=== PATIENT | male | born 1990 | race Caucasian/White ===

== ENCOUNTER 2024-10-27 10:02 | Emergency (ER) | payer OTHER, SELFPAY ==
[2024-10-27 10:03] VITALS: BP 141/68; PULSE 79; RESP 18; TEMP 36.6; O2SAT 98; BMI 42.4
--- NOTE | 2024-10-27 10:26 | EKG12_ITS ---
Test Reason : CP Blood Pressure : */* mmHG Vent. Rate : 75 BPM Atrial Rate : 75 BPM P-R Int : 190 ms QRS Dur : 96 ms QT Int : 378 ms P-R-T Axes : 44 11 25 degrees QTcB Int : 422 ms Normal sinus rhythm Normal ECG Confirmed by JANEL NUÑEZ, JOSE ANTONIO ([id number]), news video editor EVGENY DOWNING ([id number]) on 10/30/2024 2:21:42 PM Referred By: ROQUE/JIM Confirmed By: JOSE ANTONIO ISLAS MD
[2024-10-27 10:35] VITALS: O2SAT 98
--- NOTE | 2024-10-27 10:41 | CT_ITS ---
STUDY: CTA CHEST REASON FOR EXAM: Male, 33 years old. cp and known DVT RADIATION DOSAGE (If Supplied By Facility): CTDIvol = ( 11.60 ) mGy, DLP = ( 548.17 ) mGycm TECHNIQUE: The examination was performed with the intravenous administration of IV 100mL Isovue-370. Post-processing of the angiographic images was performed, with multiplanar reformation and 3D reconstruction. Individualized dose optimization techniques were used for this CT. COMPARISON: None. FINDINGS: Normal enhancement of the main pulmonary artery and right and left pulmonary arteries. Normal enhancement of the bilateral peripheral pulmonary arteries. There is no demonstrated pulmonary embolism. Normal thoracic aorta and visualized great vessels. There is no demonstrated aortic dissection. Normal heart and pericardium. Normal mediastinum. Normal hilar regions. Normal visualized trachea and bronchi. The lungs are well expanded. Normal pulmonary parenchyma. Normal pleura. Normal chest wall structures. Normal osseous structures. Normal visualized upper abdomen. CT/CTA Chest W/WO Contrast IMPRESSION: Normal CTA chest examination, without a demonstrated pulmonary embolism or arterial dissection. Electronically Signed: Erich Gann MD at 12:08 [facility] ,
--- NOTE | 2024-10-27 10:41 | EDS_ITS ---
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 He was seen and worked up for this by physicians at another facility. Said he was never put on a blood thinner besides aspirin. He had leg swelling in his left leg for more than a year. He also has some in his right. States now for last several days he had intermittent chest pain worse with deep breathing. Denies any hemoptysis. Mild shortness of breath with exertion. No cardiac history or prior cardiac or chest surgery. He denies any fever or significant cough. Prior Similar Symptoms: No Recent Illness/Hospitalization: No CVD Risk Factors: Negative for Hypertension or Diabetes PE Risk Factors: Positive for Prior DVT or PE; Negative for Recent Travel/Surgery, Recent Immobilization, Cancer or OCP + Smoking + >/=35 TAD Risk Factors: Negative for Marfan's Syndrome PFSH PFSH Medical History no medical history Home Medications ?Medication ?Instructions ?Recorded ?Last Taken ?Type NK 10/27/24 Unknown History Allergy/AdvReac Type Severity Reaction Status Date / Time No Known Allergies Allergy Verified 10/27/24 10:04 Family History no significant family his Surgical History no surgical history Social History Smoking Status: Never smoker ROS ROS ED ROS Narrative Chest pain. Dyspnea. Constitutional Constitutional ED: Denies chills or fever(s) Eyes Eyes: Reports none ENT ENT ED: Denies ear pain Cardiovascular Cardiovascular: Reports as per HPI and chest pain; Denies palpitations or racing heartbeat Respiratory/Chest Respiratory/Chest: Reports dyspnea and dyspnea on exertion Gastrointestinal Gastrointestinal: Denies abdominal pain Genitourinary Genitourinary ED: Denies dysuria or hematuria Musculoskeletal Musculoskeletal: Denies arthralgias Integumentary Denies abscess Neurologic Neurologic: Denies headache(s) Psychiatric Psychiatric: Denies anxiety or depression Endocrine Endocrinology: Denies cold intolerance Hematologic/Lymphatic Hematologic/Lymphatic: Denies easy bleeding or easy bruising Allergic/Immunologic Allergic/Immunologic ED: Denies mouth swelling, tongue swelling or urticaria EXAM Physical Exam Narrative Exam Narrative: 33-year-old male vital signs stable afebrile. Pulse ox 98% on room air no signs of hypoxia. H EENT exam unremarked. Neck nontender. Lungs clear to auscultation bilaterally. Heart regular rate and rhythm no murmur rate about 95. Chest wall and ribs nontender. No reproducible pain. Abdomen soft n ontender. Moving all 4 extremities. He has 1+ pitting edema both lower extremities left greater than right Normal dorsi plantarflexion. Normal finished hardware erector strength and radial pulses. Back nontender. Neurologically is awake and alert. Answer questions following commands. No focal motor deficits. Const Vital Signs: 10/27/24 10:03 10/27/24 10:35 10/27/24 12:03 Temperature 98 F Temperature Source Temporal Pulse Rate 79 70 Respiratory Rate 18 16 Blood Pressure 141/68 H 131/80 H Blood Pressure Mean 92 97 Pulse Ox 98 98 99 Oxygen Delivery Method Room Air Room Air Positive well nourished and well developed; Negative for cachectic, contractures or unkempt Constitutional Narrative: BMI of 42. General Appearance ED: well developed and NAD; Negative for unkempt, cachectic, contractures or pallor Nutritional Appearance: Negative for cachectic HEENT Reports moist mucous membranes normocephalic and atraumatic; Negative for trauma or tenderness Eyes PERRL and EOMs intact bilaterally General Eye ED: Negative for pale conjunctiva or scleral icterus Neck no lymphadenopathy, supple and no JVD General: Negative for tenderness Chest Wall inspection of chest normal and palpation of chest normal Resp normal respiratory effort and clear to auscultation bilaterally Effort and Inspection: Negative for respiratory distress Auscultation: Negative for rales, rhonchi, wheezes or diminished lung sounds Cardio regular rate, regular rhythm, S1 normal heart sound, S2 normal heart sound and no murmurs Rate: Negative for bradycardia or tachycardic Rhythm: Negative for abnormal rhythm Peripheral Pulses: Negative for pulses 2+ throughout GI normal to inspection, nondistended, normoactive bowel sounds, soft to palpation, non-tender, non-distended and no masses Back/Spine no CVA tenderness and no thoracic nor lumbar tenderness General Back: Negative for CVA tenderness Cervical Spine: Negative for cervical spine tenderness Extremity Negative for normal to inspection Extremity Narrative: Bilateral lower extremity edema. 1+ right 1-2+ left left greater than right. Nontender. Neurovascular intact. General Extremety ED: Yes edema; Negative for pulses abnormal or tenderness General Extremity: edema; Negative for pulses abnormal Neuro oriented x3 and CN's II-XII intact bilaterally Sensorium / Orientation: awake, alert, oriented to person, oriented to place and oriented to time; Negative for confused, lethargic or stuporous Motor Exam: strength 5/5 throughout Psych mental status grossly normal Appearance: Negative for unkempt Attitude: No agitated Mood & Affect: Negative for depressed or anxious Skin no rashes or lesions noted and no wounds General Skin Exam: Negative for jaundice or pallor Trauma: Negative for abrasion, laceration or puncture Heart Score History: Slightly/Non-Suspicious ECG: Normal Age: </= 45 years Risk Factors: No Risk Factors Troponin: </= Normal Limit Score: 0 MDM MDM MDM Narrative Medical decision making narrative: 33-year-old Religious male with [place] chest pain may be a PE less likely to be cardiac. Undergoing cardiac workup. He is a known left leg DVT and factor V Le iden. Ultrasound leg will be obtained also. Repeat exam at 1205 and 12:59 PM unchanged and normal. Patient be discharged home with chest pain uncertain etiology. Outpatient follow-up. History & Record Review Discussion w/independent historian: Patient and Family Additional record(s) reviewed:: Prior inpatient record, Prior outpatient record, Prior ED visit and Prior labs Lab Data Attestation: I reviewed the patient's lab results. Lab results narrative: CBC shows a white count 6.5. H&H 13 and 39. Platelets 220. BMP shows gap of 5. Normal BUN and creatinine. Glucose 198. Troponin is 4. Ultrasound leg negative. Normal CTA chest no PE.. Labs: Laboratory Results - last 24 hr 10/27/24 10/27/24 10/27/24 10:50 10:50 11:18 WBC Cancelled 6.5 Corrected WBC Cancelled RBC Cancelled 4.53 L Hgb Cancelled 13.5 Hct Cancelled 39.5 L MCV Cancelled 87.2 MCH Cancelled 29.8 MCHC Cancelled 34.2 RDW Std Deviation Cancelled 38.9 RDW Coeff of Meche Cancelled 12.2 Plt Count Cancelled 220 MPV Cancelled 9.1 Immature Gran % (Auto) Cancelled 0.300 Neut % (Auto) Cancelled 53.6 Lymph % (Auto) Cancelled 30.8 [place] % (Auto) Cancelled 10.9 H Eos % (Auto) Cancelled 3.5 Baso % (Auto) Cancelled 0.9 Absolute Neuts (auto) Cancelled 3.5 Absolute Lymphs (auto) Cancelled 2.01 Total Counted Cancelled Neutrophils % (Manual) Cancelled Band Neutrophils % Cancelled Lymphocytes % (Manual) Cancelled Monocytes % (Manual) Cancelled Eosinophils % (Manual) Cancelled Basophils % (Manual) Cancelled Metamyelocytes % Cancelled Myelocytes % Cancelled Promyelocytes % Cancelled Blast Cells % Cancelled Plasma Cell % (Manual) Cancelled Other Cells % Cancelled Nucleated RBC % Cancelled 0 Nucleated RBCs/100 WBC Cancelled Differential Comment Cancelled Diff Path Review Cancelled Hypersegmented Neuts Cancelled Atypical Lymphocytes Cancelled Reactive Lymphocytes Cancelled Smudge Cells Cancelled Toxic Granulation Cancelled Toxic Vacuolation Cancelled Dohle Bodies Cancelled Grant Rods Cancelled Platelet Estimate Cancelled Plt Morphology Comment Cancelled RBC Morphology Cancelled Cancelled Polychromasia Cancelled Hypochromasia Cancelled Basophilic Stippling Cancelled Anisocytosis Cancelled Microcytosis Cancelled Macrocytosis Cancelled Spherocytes Cancelled Sickle Cells Cancelled Target Cells Cancelled Tear Drop Cells Cancelled Ovalocytes Cancelled Stomatocytes Cancelled [place] Bodies Cancelled Elliott Cells Cancelled Bite Cells Cancelled Crenated Cell Cancelled Acanthocytes (Spur) Cancelled Rouleaux Cancelled Schistocytes Cancelled Sodium Cancelled 140 Potassium Cancelled 3.9 Chloride Cancelled 108 H Carbon Dioxide Cancelled 27.0 Anion Gap Cancelled 5 BUN Cancelled 10 Creatinine Cancelled 0.66 L Estim Creat Clear Calc Cancelled 230.47 Est GFR (MDRD) Af Amer Cancelled 178 Est GFR (MDRD) Non-Af Cancelled 147 BUN/Creatinine Ratio Cancelled 15.2 Glucose Cancelled 98 Calcium Cancelled 8.3 L Troponin I High Sens Cancelled 4 Radiography Diagnostic Testing: Clinical Impression(s) from Imaging Studies Chest CTA 10/27/24 10:41 IMPRESSION: Normal CTA chest examination, without a demonstrated pulmonary embolism or arterial dissection. Electronically Signed: Erich Gann MD at 12:08 EST , Rhythm Strip Rhythm Strip: Sinus Rhythm Rate: 75 Ectopy: None EKG Initial EKG: Attestation: I personally reviewed and interpreted this EKG as follows: Interpretation: Sinus Rhythm and No Acute Injury Pattern Comments: Normal sinus rhythm rate of 75 no acute signs of GA or ischemia. No dysrhythmia. Discharge Plan Triage Chief Complaint: Chest Pain ED Provider: Jono Johnson Dx/Rx/DC Orders Clinical Impression: Chest pain of uncertain etiology, History of deep vein thrombosis, History of factor V Leiden mutation Instructions: ED Chest Pain, Uncertain Cause Prescriptions: No Action NK Primary Care Provider: Care Physician,No Primary Referrals: Care Physician,No Primary [Primary Care Provider] - Bernabe Delacruz MD [Med Staff - Pharmacist Helper] - As Needed Activity Restrictions/Additional Instructions: Tylenol and/or Motrin for pain. Follow-up with your doctor as needed. Print Language: Samoan Disposition Disposition: Home, Self Care
--- NOTE | 2024-10-27 10:48 | VDLE_ITS ---
Reason For Study: LLE Swelling RIGHT LEFT FV is compressible, spontaneous, phasic, GSV is normal. competent and demonstrates normal CFV is compressible, spontaneous, phasic, augmentation. competent, and demonstrates normal Procedure augmentation. This is a venous duplex using B-mode, color FV is compressible, spontaneous, phasic, flow and spectral Doppler. competent and demonstrates normal Exam performed portable in ED. augmentation. The exam was diagnostic. POP V is compressible, phasic, and A preliminary report was called and/or faxed INCOMPETENT for greater than 1.0 second. to ED system operator Stacy. Popliteal vein measures approximately 2.43 x 2.39cm at mid vessel. T/P Trunk is compressible. PTV is compressible. LT PerV is compressible. VL/Venous Duplex US, Unilateral Interpretation Summary Deep veins of the left lower extremity are patent and compressible segmentally. There is no evidence of left lower extremity deep vein thrombosis. The left great saphenous vein berenice ears patent and compressible segmentally. Reflux noted in left popliteal vein. Vessel dilated to 2.43 cm. Ordering Physician: Jono Johnson Referring Physician: N/A Performed By: Fortunato Patel RVT
[2024-10-27 11:26] LABS: Absolute Lymphocyte Count 2.01 X10^3/uL (0.83-4.51); Absolute Neutrophil Count 3.5 X10^3/uL (2.0-7.7); Basophil# 0.06 X10^3/uL; Basophil% 0.9 % (0-1); Eosinophil# 0.23 X10^3/uL; Eosinophils% 3.5 % (0-5); Hematocrit 39.5 % (40-54); Hemoglobin 13.5 g/dL (13.0-16.5); Lymphocyte # 2.01 X10^3/ul (0.83-4.51); Lymphocyte % 30.8 % (19-41); Mean Corp Hgb Conc 34.2 g/dL (32-36); Mean Corpuscular Hgb 29.8 pg (27.0-32.0); Mean Corpuscular Volume 87.2 fL (80-94); Mean Platelet Vol. 9.1 fl (6.2-12.0); Monocyte# 0.71 X10^3/uL; Monocyte% 10.9 % (0-10); NRBC Flagged by Analyzer 0 % (0-5); Neutrophil # 3.49 X10^3/uL (2.7-7.7); Neutrophil % 53.6 % (47-70); Platelet Count 220 K/mm3 (150-450); RBC Distribution Width CV 12.2 % (11.6-14.6); RBC Distribution Width SD 38.9 fl (35.1-43.9); Red Blood Count 4.53 M/mm3 (4.6-6.2); White Blood Count 6.5 K/mm3 (4.4-11.0)
[2024-10-27 11:46] LABS: Anion Gap 5 (5-15); BUN 10 mg/dL (7-18); BUN/Creat Ratio 15.2 RATIO (10-20); Calcium,Total 8.3 mg/dL (8.5-10.1); Chloride 108 mmol/L (98-107); Creatinine, Serum 0.66 mg/dL (0.70-1.30); EST Glomerular Filtration Rate 147 mL/min (>60); Est Glom Filt Rate - Afr Amer 178 mL/min (>60); Estimated Creatinine Clearance 230.47 ml/min; Glucose 98 mg/dL (74-106); Potassium 3.9 mmol/L (3.5-5.1); Sodium Level 140 mmol/L (136-145); Troponin-I HS 4 pg/mL (3.0-78.0)
--- NOTE | 2024-10-27 11:49 | CM.ED ---
Social work Reason for referral: no PCP Referral source: case find This SW identified patient's lack of PCP and need for resources as a result. This SW entered patient's room and introduced self and role at [facility]. Patient , Brittany, bedside and permission given to speak in front of patient. Patient provided with resources of [facility] Provider Directory and Jennifer Alexander information. Patient's asked about pediatric care for their children and this was specifically discussed. Patient stated patient and patient's family usually would receive medical care in [place], but patient stated not finding success and having a desire to switch services to [facility]. Patient thanked this SW for the resources and denied further needs at this time. Ara Funes, EXPENSE CLERK, CARGO AND CONTAINER INSPECTOR
[2024-10-27 12:03] VITALS: BP 131/80; PULSE 70; RESP 16; O2SAT 99
== END 2024-10-27 13:21 | disposition home or self-care (01) ==
PROVIDERS: Emergency Provider Emergency Medicine; Visit Provider Emergency Medicine
DX: R07.9 Chest pain, unspecified (principal); D68.51 Activated protein C resistance; Z79.82 Long term (current) use of aspirin; Z86.718 Personal history of other venous thrombosis and embolism
CPT/HCPCS: 71275; 80048; 84484; 85025; 93005; 93971; 99284; Q9967; A4216

== ENCOUNTER 2025-04-24 09:41 | Emergency (ER) | payer OTHER, SELFPAY ==
[2025-04-24 09:42] VITALS: BP 148/88; PULSE 93; RESP 18; TEMP 37.2; O2SAT 99; BMI 41.3
[2025-04-24 10:37] VITALS: BP 125/79; PULSE 89; RESP 16; TEMP 36.8; O2SAT 98
--- NOTE | 2025-04-24 10:40 | ED.RN ---
LEFT DOBBINS AREA IS RED AND SWOLLEN. PT INJURED THE LEG 9 YEARS AGO, UNRELATED, PT TELL THIS NURSE DURING ASSESSMENT HE HAD THIS LEG CHECKED OUT AROUND THE FIRST OF THE YEAR AND WAS TOLD HE HAS SUPERFICIAL CLOT
--- NOTE | 2025-04-24 10:51 | VDLE_ITS ---
Reason For Study Reason For Study: LLE Swelling RIGHT LEFT CFV is compressible, spontaneous, phasic, competent GSV is normal. and demonstrates normal augmentation. CFV is compressible, spontaneous, phasic, competent, Rt SFJ measures 2.33cm. and demonstrates normal augmentation. Procedure FV is compressible, spontaneous, phasic, competent This is a venous duplex using B-mode, color flow and and demonstrates normal augmentation. spectral Doppler. POP V is compressible, phasic, and INCOMPETENT for Exam performed portable in ED. greater than 1.0 second. A preliminary report was called and/or faxed to T/P Trunk is compressible. Janel. PTV is compressible. LT PerV is compressible. Lt calf varicosity is partially compressible with bright intraluminal echoes consistent with chronic SVT Lt PopV measures 2.07cm x 2.54cm. 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 Deep veins of the left lower extremity are patent and compressible segmentally. There is no evidence of left lower extremity deep vein thrombosis. The left great saphenous vein appears patent an d compressible segmentally. Left popliteal vein positive for reflux, dilated to 2.54 cm Ordering Physician: Nkechi Islas Performed By: Lindsay Murphy RDCS, RVT
[2025-04-24 11:00] VITALS: BP 122/81; PULSE 79; RESP 16; TEMP 37.2; O2SAT 99
[2025-04-24 11:02] LABS: Hematocrit 42.5 % (40-54); Hemoglobin 14.5 g/dL (13.0-16.5); Mean Corp Hgb Conc 34.1 g/dL (32-36); Mean Corpuscular Hgb 28.9 pg (27.0-32.0); Mean Corpuscular Volume 84.7 fL (80-94); Mean Platelet Vol. 9.4 fl (6.2-12.0); Platelet Count 200 K/mm3 (150-450); RBC Distribution Width CV 12.7 % (11.6-14.6); RBC Distribution Width SD 38.6 fl (35.1-43.9); Red Blood Count 5.02 M/mm3 (4.6-6.2)
[2025-04-24] MEDS: Ampicillin/Sulbactam 3 GM in 0.9% Normal Saline (100mL MB+) 100 ML IV (11:14)
--- NOTE | 2025-04-24 11:19 | EX.ED.DYSGE1 ---
HPI History of Present Illness Chief Complaint: Cellulitis Informant: patient Narrative Narrative: Patient is a 34-year-old Rahul male with history of chronic swelling of his left lower extremity and possible phlebitis of the left lower extremity diagnosed in October 2024. A DVT study at that time which was reviewed and was negative however he did have incompetent blood flow of the popliteal vein at that time. He notes that over the past 2 days he has had increased redness, swelling, discomfort of the left lower leg and associated fever. States he had a fever of 101.8 this morning at home. He did take Tylenol prior to arrival. He states chronically he has of some's chronic skin changes to the lower leg from an injury 7 years ago and he is always has swelling of the leg compared to the right. He states the swelling tends to get better in the morning after he is elevated his leg overnight and worse if he is on it a lot or has a short turnaround from working in the evening to come back to work early in the morning. He denies any shortness of breath. States he has some mild nausea but denies any vomiting. No other complaints or concerns reported at this time denies any known history of diabetes. PFSH PFS Medical History no medical history Home Medications ?Medication ?Instructions ?Recorded ?Last Taken ?Type cefpodoxime 200 mg tablet 200 mg PO Q12H #20 tabs 04/24/25 Unknown Rx Allergy/AdvReac Type Severity Reaction Status Date / Time No Known Allergies Allergy Verified 04/24/25 09:44 Family History no significant family his Surgical History no surgical history Social History Smoking Status: Never smoker EXAM Physical Exam Const Vital Signs: 04/24/25 09:42 04/24/25 10:37 04/24/25 11:00 Temperature 98.9 F 98.3 F 98.9 F Temperature Source Oral Oral Oral Pulse Rate 93 89 79 Respiratory Rate 18 16 16 Blood Pressure 148/88 H 125/79 H 122/81 H Blood Pressure Mean 108 94 94 Pulse Ox 99 98 99 Oxygen Delivery Method Room Air Room Air Room Air 04/24/25 12:00 04/24/25 13:00 Temperature 98.8 F 100.2 F H Temperature Source Oral Oral Pulse Rate 72 90 Respiratory Rate 16 18 Blood Pressure 124/81 H 134/89 H Blood Pressure Mean 95 104 Pulse Ox 99 97 Oxygen Delivery Method Room Air Room Air MDM MDM MDM Narrative Medical decision making narrative: Patient valuated for fever, worsening pain and redness of his left lower extremity. Differential includes sepsis, cellulitis and DVT. Compartments are soft. There is no crepitus. There is no rapid progression in the emergency room and on repeat evaluation low suspicion for necrotizing fasciitis. Lab work including CBC, BMP and lactate is all normal. 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 I suspect is chronic edema and likely poor venous return predisposed him for cellulitis. Patient given a dose of Unasyn in the ER. Does spike a fever and is given Tylenol and Zofran for this. And he states that he feels comfortable going home to be treated outpatient with antibiotics. Will start him on cefpodoxime and discharged home. Is given a good Rx coupon code as we do not have commercial insurance. Given return precautions. Counseled any worsening symptoms indication return the emergency room. Will give referral for primary care as well as vascular surgery for outpatient follow-up. Harrison wrap applied to the left lower extremity for swelling. Lab Data Attestation: I reviewed the patient's lab results. Labs: Laboratory Results - last 24 hr 04/24/25 04/24/25 10:44 12:47 WBC 6.0 RBC 5.02 Hgb 14.5 Hct 42.5 MCV 84.7 MCH 28.9 MCHC 34.1 RDW Std Deviation 38.6 RDW Coeff of Meche 12.7 Plt Count 200 MPV 9.4 Sodium 135 Potassium 4.1 Chloride 102 Carbon Dioxide 21.4 Anion Gap 11 BUN 9 Creatinine 0.73 Estim Creat Clear Calc 203.53 Est GFR (MDRD) Non-Af 121 BUN/Creatinine Ratio 12.1 Glucose 117 H Lactic Acid Cancelled < 1.0 Calcium 8.6 Discharge Plan Triage Chief Complaint: Cellulitis Other Complaint: Lower Extremity Injury ED Provider: Nkechi Islas Dx/Rx/DC Orders Clinical Impression: Cellulitis of left leg Prescriptions: New cefpodoxime 200 mg tablet 200 mg PO Q12H Qty: 20 0RF Rx Instructions: must administer with a meal/food Primary Care Provider: Care Physician,No Primary Referrals: Gregg Montemayor MD [Med Staff - Active Staff] - Care Physician,No Primary [Primary Care Provider] - Andrez Brown [facility], MEDICAL LAB SCIENTIST-C [[facility]] - Activity Restrictions/Additional Instructions: I prescription was sent to [facility] (after further vesication was actually a same [facility]). He had been given the GoodRx coupon card. The paper does say [facility] [place] but the code is the same regardless of the pharmacy. If your symptoms are worsening especially after 48 hours of antibiotics please return to the emergency room. Continue take Tylenol at home as needed for pain and fever. Elevate your leg is much as possible. Really try to rest and take it easy over the next few days. Follow-up with both vascular surgery and family medicine. Print Language: Lebanese Disposition Disposition: Home, Self Care
[2025-04-24 11:32] LABS: Anion Gap 11 (5-15); BUN 9 mg/dL (4-19); BUN/Creat Ratio 12.1 RATIO (10-20); Calcium,Total 8.6 mg/dL (7.6-11.0); Carbon Dioxide 21.4 mmol/L (21.0-32.0); Chloride 102 mmol/L (98-108); Creatinine, Serum 0.73 mg/dL (0.70-1.20); EST Glomerular Filtration Rate 121 (>60); Estimated Creatinine Clearance 203.53 ml/min (50-250); Glucose 117 mg/dL (70-99); Potassium 4.1 mmol/L (3.3-5.1); Sodium Level 135 mmol/L (133-145)
[2025-04-24 12:00] VITALS: BP 124/81; PULSE 72; RESP 16; TEMP 37.1; O2SAT 99
[2025-04-24 13:00] VITALS: BP 134/89; PULSE 90; RESP 18; TEMP 37.9; O2SAT 97
[2025-04-24 13:33] LABS: Lactic Acid < 1.0 mmol/L (0.0-2.0)
[2025-04-24] MEDS: Acetaminophen 325 MG Tablet 650 MG PO (13:47)
[2025-04-24] MEDS: Ondansetron 4 MG/2 ML Vial IV (13:47)
[2025-04-24 15:02] VITALS: BP 135/75; PULSE 90; RESP 18; TEMP 37.2; O2SAT 97
== END 2025-04-24 15:03 | disposition home or self-care (01) ==
PROVIDERS: Emergency Provider Emergency Medicine; Visit Provider Emergency Medicine
DX: L03.116 Cellulitis of left lower limb (principal); R50.9 Fever, unspecified; R11.0 Nausea
CPT/HCPCS: 80048; 83605; 85027; 93971; 96365; 96375; 99284; A4216; J0295; J2405

== ENCOUNTER 2025-04-25 10:57 | Emergency (ER) | payer OTHER, SELFPAY ==
[2025-04-25 10:57] VITALS: BP 137/87; PULSE 72; RESP 14; TEMP 37.2; O2SAT 98; BMI 40.1
--- NOTE | 2025-04-25 11:14 | EX.ED.DYSGE1 ---
HPI History of Present Illness Chief Complaint: Nausea/Vomiting Detail of Chief Complaint: Nausea and vomiting, head pain Informant: patient Onset/Context/Timing Onset: Yesterday Context: Sudden Onset Timing: Continuous (Head pain is constant) and Intermittent Quality: Throbbing head pain Location: Occiput and radiates to the forehead Current Severity: Mild Maximum Severity: Moderate Worsened by: Nothing specific Relieved by: nothing Associated Symptoms Associated Symptoms: Thirst, dry mouth and lightheadedness Narrative Narrative: Patient is a 34-year-old male. He was seen yesterday and diagnosed with cellulitis of his distal left anterior leg. He reported headache yesterday. He was given Tylenol. On his way home he vomited. He is vomited 8-9 times since. He now has dry heaves. He does endorse thirst, dry mouth and lightheadedness. She had decreased urine output. He believes the rash is better. thinks it is as red. She does admit that the swelling has gone down and the area of redness is gone down. He denies fever or chills. He denies double vision blurred vision loss of vision. Nose ringing in ears or decreased hearing. He denies cardiac or respiratory symptoms. He has some abdominal discomfort with the vomiting. There is also a rash noted near the umbilicus. It is erythematous. That was not noted yesterday. Prior similar symptoms: No Recent Illness/Hospitalization: Yes PFSH PFSH Home Medications ?Medication ?Instructions ?Recorded ?Last Taken ?Type ondansetron 4 mg disintegrating 4 mg PO Q8H PRN PRN Nausea #10 tabs 04/25/25 Unknown Rx tablet Allergy/AdvReac Type Severity Reaction Status Date / Time No Known Allergies Allergy Verified 04/25/25 10:58 Social History (Updated 04/25/25 @ 11:[address] Rizwan Garces MD) household members: spouse and children Smoking Status: Never smoker ROS ROS ED Constitutional Constitutional ED: Denies chills, fever(s), subjective or sweats Eyes Eyes: Denies blurry vision, change in vision or diplopia ENT ENT ED: Denies ear pain, rhinorrhea or sore throat Cardiovascular Cardiovascular: Denies chest pain or palpitations Gastrointestinal Gastrointestinal: Reports nausea and vomiting; Denies abdominal pain or diarrhea Genitourinary Genitourinary ED: Reports other Details: HPI narrative Musculoskeletal Musculoskeletal: Denies arthralgias, myalgias or neck pain Integumentary Reports rash Neurologic Neurologic: Reports headache(s) and weakness; Denies paresthesias EXAM Physical Exam Const Vital Signs: 04/25/25 10:57 04/25/25 12:57 04/25/25 14:00 Temperature 98.9 F Temperature Source Temporal Pulse Rate 72 60 57 L Respiratory Rate 14 18 16 Blood Pressure 137/87 H 138/86 H 132/92 H Blood Pressure Mean 103 103 105 Pulse Ox 98 100 98 Oxygen Delivery Method Room Air Room Air Room Air Positive well nourished and well developed Constitutional Narrative: BMI is 40.2. Blood pressure slightly elevated. General Appearance ED: well developed; Negative for pallor HEENT Reports dry mucous membranes HEENT Narrative: Head is atraumatic no cephalic. Ears normal. Nares patent. TMs normal. Posterior pharynx unremarkable. Mouth ED: Yes dry mucous membranes Mouth: dry mucous membranes Eyes PERRL and EOMs intact bilaterally Eyes Narrative: There is no nystagmus. General Eye ED: Negative for pale conjunctiva or scleral icterus Neck no lymphadenopathy, supple and no JVD Resp normal respiratory effort and clear to auscultation bilaterally Cardio regular rate, regular rhythm, S1 normal heart sound, S2 normal heart sound and no murmurs GI normal to inspection, nondistended, normoactive bowel sounds, non-tender, non-distended and no masses; Negative for hepatosplenomegaly GI Narrative: There is a erythematous nonblanching rash noted that is 1 cm x 3 cm on his abdomen. There is no warmth, induration, or any other findings. Palpation: soft Extremity Extremity Narrative: Leg with erythema slight warmth. There is no induration. There is no lymphangitis. There is no neurovasc compromise. Neuro oriented x3 and CN's II-XII intact bilaterally Sensorium / Orientation: alert Psych mental status grossly normal Skin No no rashes or lesions noted and skin turgor normal General Skin Exam: elasticity normal; Negative for jaundice or pallor MDM MDM MDM Narrative Medical decision making narrative: Clinically patient appears dehydrated. 1 L normal saline was ordered. BMP was obtained to assess BUN and creatinine compared to yesterday as well as CO2 anion gap. Patient's headache was treated with ketorolac since his BUN and creatinine were normal yesterday. He received Zofran for his nausea and vomiting. History & Record Review Additional record(s) reviewed:: Prior ED visit and Prior labs Lab Data Attestation: I reviewed the patient's lab results. Lab results narrative: CBC is unremarkable and essentially unchanged from yesterday. Basic metabolic panel is unremarkable. Labs: Laboratory Results - last 24 hr 04/25/25 11:26 WBC 6.6 RBC 5.03 Hgb 14.7 Hct 42.1 MCV 83.7 MCH 29.2 MCHC 34.9 RDW Std Deviation 37.3 RDW Coeff of Meche 12.2 Plt Count 209 MPV 8.9 Immature Gran % (Auto) 0.300 Neut % (Auto) 75.8 H Lymph % (Auto) 14.2 L Wilcox % (Auto) 9.4 Eos % (Auto) 0.0 Baso % (Auto) 0.3 Absolute Neuts (auto) 5.0 Absolute Lymphs (auto) 0.94 Nucleated RBC % 0 Sodium 136 Potassium 4.1 Chloride 101 Carbon Dioxide 23.6 Anion Gap 12 BUN 11 Creatinine 0.76 Estim Creat Clear Calc 192.50 Est GFR (MDRD) Non-Af 120 BUN/Creatinine Ratio 14.9 Glucose 110 H Calcium 8.7 Treatment and Re-Evaluation :: Patient was reassessed at 1232. He still feels nauseous but has improved. The liter and has essentially infused. He has no urge to urinate. Second liter was ordered. Since he still complain of nausea 5 mg of Reglan was ordered to be administered IV push. Patient was reassessed at 1519. He still has headache. His nausea has improved. He had no vomiting. Plan is to discharge prescription for Zofran. Take Tylenol or ibuprofen for his headache. Discharge Plan Triage Chief Complaint: Nausea/Vomiting ED Provider: Rizwan Garces Dx/Rx/DC Orders Clinical Impression: Nausea & vomiting, Acute dehydration, Cellulitis of left leg without foot, Elevated blood-pressure reading without diagnosis of hypertension, Body mass index (BMI) of 40.0 to 49.9 Instructions: ED Hypertension, To Be Confirmed, ED Vomiting (Adult) Prescriptions: New ondansetron 4 mg tablet,disintegrating 4 mg PO Q8H PRN PRN (Reason: Nausea) Qty: 10 0RF Primary Care Provider: Care Physician,No Primary Referrals: Care Physician,No Primary [Primary Care Provider] - Activity Restrictions/Additional Instructions: 1. You may take either Tylenol or ibuprofen for your headache. 2. Follow-up with your doctor if you do not feel better by Sunday. Print Language: Kittitian Disposition Disposition: Home, Self Care
--- OUTSIDE RECORDS SUMMARY | 2025-04-25 11:30 | XMS RPT_ITS | CCD ---
Author Organization [facility] Care Team Providers Care Enterprise Integration Architect Name Role Phone CODY NUÑEZ, MEGHA Yeung Primary Care Physician HANY ACKERMAN Attending Debbie ROSS MD, MEGHA Yeung Primary Care Unavailable HANY ACKERMAN Attending Debbie ROSS MD, MEGHA Yeung Primary Care Unavailable Care Physician, No Primary Primary Care UnaJono Ying Referring Unavailable Gregg Montemayor Attending Unavailable Care Physician, No Primary Primary Care UnaJono Ying Attending Unavailable Care Physician, No Primary Primary Care Provider Unavailable Dr. Nkechi Islas DO Emergency Provider [phone] Medications Current Medications Medication Drug Class(es) Dates Sig (Normalized) Sig (Original) cefpodoxime 200 mg oral tablet (1 source) Cephalosporin Antibacterial Start: 04-24-2025 take 1 tablet by mouth every twelve hours at mealtime Cefpodoxime 200 mg tablet Active 200 mg PO Q12H April 24, 2025 12:00am must administer with a meal/food Problems Problem Classification Problem Date Documented Da te Episodic/Chronic Malaise and fatigue (1 source) Fatigue; Translations: [Other fatigue] Episodic Nonspecific chest pain (2 sources) Chest pain, unspecified; Translations: [Chest pain] Onset: 11-25-2024 11-04-2024 Episodic Other hematologic conditions (1 source) H/O: blood disorder; Translations: [Personal history of diseases of the blood and blood-forming organs and certain disorders involving the immune mechanism] 11-04-2024 Episodic Phlebitis; thrombophlebitis and thromboembolism (1 source) H/O: Deep vein thrombosis; Translations: [Personal history of other venous thrombosis and embolism] 11-04-2024 Episodic Residual codes; unclassified (1 source) Localized edema; Translations: [Localized edema] Episodic Skin and subcutaneous tissue infections (1 source) Cellulitis of left lower limb; Translations: [Cellulitis of left lower limb] 04-24-2025 Episodic Unclassified (1 source) Coagulation factor V (substance) 07-10-2019 Results Test Name Value Interpretation Reference Range Facility Anion gap in Serum or Plasma Ordered By: Nkechi Islas on 04-24-2025 Anion gap [Moles/Vol] 11 mmol/L 5-15 [facility] BUN/creatinine ratioOrdered By: Nkechi Islas on 04-24-2025 Urea nitrogen/Creatinine [Mass ratio] 12.1 mg/mg 08-24 [facility] Carbon dioxide, total [Moles /volume] in Central venous bloodOrdered By: Nkechi Islas on 04-24-2025 CO2 [Moles/Vol] 21.4 mmol/L 21.0-32.0 [facility] Chloride assayOrdered By: Cody Islas on 04-24-2025 Chloride [Moles/Vol] 102 mmol/L 98-108 [place] Erythrocyte distribution wid th ratioOrdered By: Nkechi Islas on 04-24-2025 Erythrocyte distribution width (RBC) [Ratio] 12.7 % 11.6-14.6 [facility] Erythrocyte distribution wid th standard deviationOrdered By: Nkechi Islas on 04-24-2025 Erythrocyte distribution width (RBC) [Ratio] 38.6 fl 35.1-43.9 [facility] Glomerular filtration rate ( GFR) estimation/1.73 sq m using serum, plasma, or whole bOrdered By: Nkechi Islas on 04-24-2025 GFR/1.73 sq M.predicted among non-blacks MDRD (S/P/Bld) [Vol rate/Area] 121 mL/min/{1.73_m2} >60 [facility] Comment on above: mL/min/1.73m2 CKD-EP I Creatinine Equation (2020) Hematocrit Auto (Bld) [Volum e fraction]Ordered By: Nkechi Islas on 04-24-2025 Hematocrit (Bld) [Volume fraction] 42.5 % 40-54 [facility] Hemoglobin measurementOrdere d By: Nkechi Islas on 04-24-2025 Hemoglobin (Bld) [Mass/Vol] 14.5 g/dL 13.0-16.5 [facility] Lactic acid measurementOrder ed By: Nkechi Islas on 04-24-2025 Lactate [Moles/Vol] mmol/L 0.0-2.0 [facility] MCV (mean corpuscular volume ) determinationOrdered By: Nkechi Islas on 04-24-2025 MCV (RBC) [Entitic vol] 84.7 fL 80-94 [facility] Mean corpuscular hemoglobin (MCH) determinationOrdered By: Nkechi Islas on 04-24-2025 MCH (RBC) [Entitic mass] 28.9 pg 27.0-32.0 [facility] Mean corpuscular hemoglobin concentration (MCHC) determinationOrdered By: Nkechi Islas on 04-24-2025 MCHC (RBC) [Mass/Vol] 34.1 g/dL 32-36 [facility] Mean platelet volume determi nationOrdered By: Nkechi Islas on 04-24-2025 Platelet mean volume (Bld) [Entitic vol] 9.4 fL 6.2-12.0 [facility] Platelet countOrdered By: Cody Islas on 04-24-2025 Platelets (Bld) [#/Vol] 200 10*3/uL 150-450 [facility] Potassium measurement (mass/ volume)Ordered By: Nkechi Islas on 04-24-2025 Potassium (Unsp spec) [Mass/Vol] 4.1 mmol/L 3.3-5.1 [facility] Comment on above: Hemolysis present, R esults could be affected. RBC Auto (Bld) [#/Vol]Ordere d By: Nkechi Islas on 04-24-2025 RBC (Bld) [#/Vol] 5.02 10*6/uL 4.6-6.2 [facility] Serum creatinine measurement (mass/volume)Ordered By: Nkechi Islas on 04-24-2025 Creatinine [Mass/Vol] 0.73 mg/dL 0.70-1.20 [facility] Serum glucose measurement (m ass/volume)Ordered By: Nkechi Islas on 04-24-2025 Glucose [Mass/Vol] 117 mg/dL High 70-99 [facility] Serum or plasma calcium katy urement (mass/volume)Ordered By: Nkechi Islas on 04-24-2025 Calcium [Mass/Vol] 8.6 mg/dL 7.6-11.0 [facility] Serum or plasma urea nitroge n measurement (mass/volume)Ordered By: Nkechi Islas on 04-24-2025 Urea nitrogen [Mass/Vol] 9 mg/dL 4-19 [facility] Sodium levelOrdered By: Leni Islas on 04-24-2025 Sodium [Moles/Vol] 135 mmol/L 133-145 [facility] White blood cell (WBC) count Ordered By: Nkechi Islas on 04-24-2025 WBC (Bld) [#/Vol] 6.0 10*3/uL 4.4-11.0 [facility] 12 Lead EKGon 10-27-2024 12 Lead EKG [facility] Cardiovascular Services [address] [place] [address] 12 Lead EKG 10/27/24 1014 MR#: [id number] Acct: [id number] Name: LAYNE BUSH Rep #: [id number] : 1990 33 From: Pete Angel MD Attending Dr: Status: DEP ER Ordering Dr: Jono Johnson MD Date: 10/27/24 Location: ED Sex: M C Admitted: Test Reason : CP Blood Pressure : */* mmHG Vent. Rate : 75 BPM Atrial Rate : 75 BPM P-R Int : 190 ms QRS Dur : 96 ms QT Int : 378 ms P-R-T Axes : 44 11 25 degrees QTcB Int : 422 ms Normal sinus rhythm Normal ECG Confirmed by PETE ANGEL MD ([id number]), television news video editor EVGENY DOWNING ([id number]) on 10/30/2024 2:21:42 PM Referred By: ROQUE/JIM Confirmed By: PETE ANGEL MD 10/30/24 1421 Date _ Pete Angel MD CC: Dr. Jono Johnson MD; No Primary Care Physician Signed Normal [facility] Basic Metabolic Profile (BMP )on 10-27-2024 BUN/CRE 15.2 RATIO Normal 10-20 [facility] Comment on above: Order Comment: 6REDR AW. PREVIOUS SPECIMEN REJECTED DUE TO HEMOLYSIS. 10/27/241104 11 Performed By: #### L 500.2500, L100.0100, L501.4020 #### [facility] [address] [place], [address] CA,Total 8.3 mg/dL Low 8.5-10.1 [facility] Comment on above: Order Comment: 6REDR AW. PREVIOUS SPECIMEN REJECTED DUE TO HEMOLYSIS. 10/27/241104 11 Performed By: #### L 500.2500, L100.0100, L501.4020 #### [facility] [address] [place], [address] Chloride [Moles/Vol] 108 mmol/L High 98-107 [place] Comment on above: Order Comment: 6REDR AW. PREVIOUS SPECIMEN REJECTED DUE TO HEMOLYSIS. 10/27/241104 11 Performed By: #### L 500.2500, L100.0100, L501.4020 #### [facility] [address] [place], [address] CO2 [Moles/Vol] 27.0 mmol/L Normal 21.0-32.0 [facility] Comment on above: Order Comment: 6REDR AW. PREVIOUS SPECIMEN REJECTED DUE TO HEMOLYSIS. 10/27/241104 11 Performed By: #### L 500.2500, L100.0100, L501.4020 #### [facility] [address] [place], [address] Creatinine [Mass/Vol] 0.66 mg/dL Low 0.70-1.30 [facility] Comment on above: Order Comment: 6REDR AW. PREVIOUS SPECIMEN REJECTED DUE TO HEMOLYSIS. 10/27/241104 11 Result Comment: The validity of the calculated GFR GFRAA in patients over 70 years has not been determined. Clinical correlation is essential. Performed By: #### L 500.2500, L100.0100, L501.4020 #### [facility] [address] [place], [address] ECRCL 230.47 ml/min Normal [facility] Comment on above: Order Comment: 6REDR AW. PREVIOUS SPECIMEN REJECTED DUE TO HEMOLYSIS. 10/27/241104 1 Performed By: #### L 500.2500, L100.0100, L501.4020 #### [facility] [address] [place], [address] EST GFR - AA 178 mL/min Normal >60 [facility] Comment on above: Order Comment: 6REDR AW. PREVIOUS SPECIMEN REJECTED DUE TO HEMOLYSIS. 10/27/241104 11 Result Comment: Afri can [place] GFR Calc Performed By: #### L 500.2500, L100.0100, L501.4020 #### [facility] [address] [place], [address] GAP 5 Normal 5-15 [facility] Comment on above: Order Comment: 6REDR AW. PREVIOUS SPECIMEN REJECTED DUE TO HEMOLYSIS. 10/27/241104 1 Performed By: #### L 500.2500, L100.0100, [id number] #### [facility] [address] [place], [address] GFR/1.73 sq M.predicted among non-blacks MDRD (S/P/Bld) [Vol rate/Area] 147 mL/min/{1.73_m2} Normal >60 [facility] Comment on above: Order Comment: 6REDR AW. PREVIOUS SPECIMEN REJECTED DUE TO HEMOLYSIS. 10/27/241104 11 Result Comment: Non- GFR Calc Performed By: #### L 500.2500, L100.0100, L501.4020 #### [facility] [address] [place], [address] Glucose [Mass/Vol] 98 mg/dL Normal 74-106 [facility] Comment on above: Order Comment: 6REDR AW. PREVIOUS SPECIMEN REJECTED DUE TO HEMOLYSIS. 10/27/241104 1 Performed By: #### L 500.2500, L100.0100, L501.4020 #### [facility] [address] [place], [address] Potassium [Moles/Vol] 3.9 mmol/L Normal 3.5-5.1 [facility] Comment on above: Order Comment: 6REDR AW. PREVIOUS SPECIMEN REJECTED DUE TO HEMOLYSIS. 10/27/241104 1 Performed By: #### L 500.2500, L100.0100, L501.4020 #### [facility] [address] [place], [address] Sodium [Moles/Vol] 140 mmol/L Normal 136-145 [facility] Comment on above: Order Comment: 6REDR AW. PREVIOUS SPECIMEN REJECTED DUE TO HEMOLYSIS. 10/27/241104 1 Performed By: #### L 500.2500, L100.0100, L501.4020 #### [facility] [address] [place], [address] Urea nitrogen [Mass/Vol] 10 mg/dL Normal 7-18 [facility] Comment on above: Order Comment: 6REDR AW. PREVIOUS SPECIMEN REJECTED DUE TO HEMOLYSIS. 10/27/241104 1 Performed By: #### L 500.2500, L100.0100, L501.4020 #### [facility] [address] [place], [address] BUN Normal 7-18 [facility] Comment on above: Order Comment: 'TROP ' Serial specimen #1, #2 or #3: 1 Result Comment: This specimen has been REJECTED due to Laboratory criteria: Clotted/HEMOLYSIS. NATE has been notified of need of recollection. 10/27/241102 Marianna Ann Performed By: #### L 100.0100, L500.2500 #### [facility] [address] [place], [address] BUN/CRE Normal 10-20 [facility] Comment on above: Order Comment: 'TROP ' Serial specimen #1, #2 or #3: 1 Result Comment: This specimen has been REJECTED due to Laboratory criteria: Clotted/HEMOLYSIS. ARBERT has been notified of need of recollection. 10/27/24 1103 Marianna Clapper Performed By: #### L 100.0100, L500.2500 #### [facility] [address] [place], [address] CA,Total Normal 8.5-10.1 [facility] Comment on above: Order Comment: 'TROP ' Serial specimen #1, #2 or #3: 1 Result Comment: This specimen has been REJECTED due to Laboratory criteria: Clotted/HEMOLYSIS. ARBERT has been notified of need of recollection. 10/27/24 1103 Marianna Clapper Performed By: #### L 100.0100, L500.2500 #### [facility] [address] [place], [address] CL Normal 98-107 [facility] Comment on above: Order Comment: 'TROP ' Serial specimen #1, #2 or #3: 1 Result Comment: This specimen has been REJECTED due to Laboratory criteria: Clotted[facility]YSIS. [facility]. 10/27/24 1103 Marianna Clapper Performed By: #### L 100.0100, L500.2500 #### [facility] [address] [place], [address] CO2 Normal 21.0-32.0 [facility] Comment on above: Order Comment: 'TROP ' Serial specimen #1, #2 or #3: 1 Result Comment: This specimen has been REJECTED due to Laboratory criteria: Clotted/HEMOLYSIS. ARBERT has been notified of need of recollection. 10/27/24 1103 Marianna Clapper Performed By: #### L 100.0100, L500.2500 #### [facility] [address] [place], [address] CREAT,SERUM Normal 0.70-1.30 [facility] Comment on above: Order Comment: 'TROP ' Serial specimen #1, #2 or #3: 1 Result Comment: This specimen has been REJECTED due to Laboratory criteria: Clotted/HEMOLYSIS. [facility] need of recollection. 10/27/24 1103 Marianna Clapper Performed By: #### L 100.0100, L500.2500 #### [facility] [address] [place], [address] EST GFR Normal >60 [facility] Comment on above: Order Comment: 'TROP ' Serial specimen #1, #2 or #3: 1 Result Comment: This specimen has been REJECTED due to Laboratory criteria: Clotted/HEMOLYSIS. [facility] notified [facility] need of recollection. 10/27/24 1103 Marianna Clapper Performed By: #### L 100.0100, L500.2500 #### [facility] [address] [place], [address] EST GFR - AA Normal >60 [facility] Comment on above: Order Comment: 'TROP ' Serial specimen #1, #2 or #3: 1 Result Comment: This specimen has been REJECTED due to Laboratory criteria: Clotted/HEMOLYSIS. [facility] need of recollection. 10/27/24 1103 Marianna Clapper Performed By: #### L 100.0100, L500.2500 #### [facility] [address] [place], [address] GAP Normal 5-15 [facility] Comment on above: Order Comment: 'TROP ' Serial specimen #1, #2 or #3: 1 Result Comment: This specimen has been REJECTED due to Laboratory criteria: Clotted/HEMOLYSIS. ARBERT has been notified of need of recollection. 10/27/24 1103 Marianna Clapper Performed By: #### L 100.0100, L500.2500 #### [facility] [address] [place], [address] GLU Normal 74-106 [facility] Comment on above: Order Comment: 'TROP ' Serial specimen #1, #2 or #3: 1 Result Comment: This specimen has been REJECTED due to Laboratory criteria: Clotted/HEMOLYSIS. [facility] has been notified of need of recollection. 10/27/241102 Marianna Clapper Performed By: #### L 100.0100, L500.2500 #### [facility] [address] [place], [address] Potassium Normal 3.5-5.1 [facility] Comment on above: Order Comment: 'TROP ' Serial specimen #1, #2 or #3: 1 Result Comment: This specimen has been REJECTED due to Laboratory criteria: Clotted/HEMOLYSIS. [facility] has been notified of need of recollection. 10/27/241102 Marianna Clapper Performed By: #### L 100.0100, L500.2500 #### [facility] [address] [place], [address] Basic Metabolic Profile (BMP) Normal 136-145 [facility] Comment on above: Order Comment: 'TROP ' Serial specimen #1, #2 or #3: 1 Result Comment: This specimen has been REJECTED due to Laboratory criteria: Clotted/HEMOLYSIS. [facility] has been notified of need of recollection. 10/27/243 Marianna Clapper Performed By: #### L 100.0100, L500.2500 #### [facility] [address] [place], [address] CBC W/Diff, Automatedon 12- Absolute Lymph 2.01 X10 3/uL Normal 0.83-4.51 [facility] Comment on above: Order Comment: REDRA W. PREVIOUS SPECIMEN REJECTED DUE TO CLOTTED. 10/27/24 110 Performed By: #### L 500.2500, L100.0100, L501.4020 #### [facility] [address] [place], [address] Absolute Neut 3.5 X10 3/uL Normal 2.0-7.7 [facility] Comment on above: Order Comment: REDRA W. PREVIOUS SPECIMEN REJECTED DUE TO CLOTTED. 10/27/24 1105 Performed By: #### L 500.2500, L100.0100, L501.4020 #### [facility] [address] [place], [address] Basophils/100 WBC (Bld) 0.9 % Normal 0-1 [facility] Comment on above: Order Comment: REDRA W. PREVIOUS SPECIMEN REJECTED DUE TO CLOTTED. 10/27/24 1105 Performed By: #### L 500.2500, L100.0100, L501.4020 #### [facility] [address] [place], [address] Eosinophils/100 WBC (Bld) 3.5 % Normal 0-5 [facility] Comment on above: Order Comment: REDRA W. PREVIOUS SPECIMEN REJECTED DUE TO CLOTTED. 10/27/24 1105 Performed By: #### L 500.2500, L100.0100, L501.4020 #### [facility] [address] [place], [address] Erythrocyte distribution width (RBC) [Ratio] 12.2 % Normal 11.6-14.6 [facility] Comment on above: Order Comment: REDRA W. PREVIOUS SPECIMEN REJECTED DUE TO CLOTTED. 10/27/24 1105 Performed By: #### L 500.2500, L100.0100, L501.4020 #### [facility] [address] [place], [address] Hematocrit (Bld) [Volume fraction] 39.5 % Low 40-54 [facility] Comment on above: Order Comment: REDRA W. PREVIOUS SPECIMEN REJECTED DUE TO CLOTTED. 10/27/24 1105 Performed By: #### L 500.2500, L100.0100, L501.4020 #### [facility] [address] [place], [address] Hemoglobin (Bld) [Mass/Vol] 13.5 g/dL Normal 13.0-16.5 [facility] Comment on above: Order Comment: REDRA W. PREVIOUS SPECIMEN REJECTED DUE TO CLOTTED. 10/27/24 1105 Performed By: #### L 500.2500, L100.0100, L501.4020 #### [facility] [address] [place], [address] IG% 0.300 Normal 0.0-0.9 [facility] Comment on above: Order Comment: REDRA W. PREVIOUS SPECIMEN REJECTED DUE TO CLOTTED. 10/27/241104 Result Comment: IG% - Immature Granulocytes (promyelocytes, myelocytes and metamyelocytes) > 1% indicates that a LEFT SHIFT is Present. Performed By: #### L 500.2500, L100.0100, L501.4020 #### [facility] [address] [place], [address] Lymphocytes/100 WBC (Bld) 30.8 % Normal 19-41 [facility] Comment on above: Order Comment: REDRA W. PREVIOUS SPECIMEN REJECTED DUE TO CLOTTED. 10/27/24 1105 Performed By: #### L 500.2500, L100.0100, L501.4020 #### [facility] [address] [place], [address] MCH (RBC) [Entitic mass] 29.8 pg Normal 27.0-32.0 [facility] Comment on above: Order Comment: REDRA W. PREVIOUS SPECIMEN REJECTED DUE TO CLOTTED. 10/27/24 1105 Performed By: #### L 500.2500, L100.0100, L501.4020 #### [facility] [address] [place], [address] MCHC (RBC) [Mass/Vol] 34.2 g/dL Normal 32-36 [facility] Comment on above: Order Comment: REDRA W. PREVIOUS SPECIMEN REJECTED DUE TO CLOTTED. 10/27/24 1105 Performed By: #### L 500.2500, L100.0100, L501.4020 #### [facility] [address] [place], [address] MCV (RBC) [Entitic vol] 87.2 fL Normal 80-94 [facility] Comment on above: Order Comment: REDRA W. PREVIOUS SPECIMEN REJECTED DUE TO CLOTTED. 10/27/24 1105 Performed By: #### L 500.2500, L100.0100, L501.4020 #### [facility] [address] [place], [address] Monocytes/100 WBC (Bld) 10.9 % High 0-10 [facility] Comment on above: Order Comment: REDRA W. PREVIOUS SPECIMEN REJECTED DUE TO CLOTTED. 10/27/24 1105 Performed By: #### L 500.2500, L100.0100, L501.4020 #### [facility] [address] [place], [address] Neutrophils/100 WBC (Bld) 53.6 % Normal 47-70 [facility] Comment on above: Order Comment: REDRA W. PREVIOUS SPECIMEN REJECTED DUE TO CLOTTED. 10/27/24 1105 Performed By: #### L 500.2500, L100.0100, L501.4020 #### [facility] [address] [place], [address] Nucleated RBC (Bld) [#/Vol] 0 10*3/uL Normal 0-5 [facility] Comment on above: Order Comment: REDRA W. PREVIOUS SPECIMEN REJECTED DUE TO CLOTTED. 10/27/24 1105 Performed By: #### L 500.2500, L100.0100, L501.4020 #### [facility] [address] [place], [address] Platelet mean volume (Bld) [Entitic vol] 9.1 fL Normal 6.2-12.0 [facility] Comment on above: Order Comment: REDRA W. PREVIOUS SPECIMEN REJECTED DUE TO CLOTTED. 10/27/24 1105 Performed By: #### L 500.2500, L100.0100, L501.4020 #### [facility] [address] [place], [address] Platelets (Bld) [#/Vol] 220 10*3/uL Normal 150-450 [facility] Comment on above: Order Comment: REDRA W. PREVIOUS SPECIMEN REJECTED DUE TO CLOTTED. 10/27/24 1105 Performed By: #### L 500.2500, L100.0100, L501.4020 #### [facility] [address] [place], [address] RBC (Bld) [#/Vol] 4.53 10*6/uL Low 4.6-6.2 [facility] Comment on above: Order Comment: REDRA W. PREVIOUS SPECIMEN REJECTED DUE TO CLOTTED. 10/27/24 1105 Performed By: #### L 500.2500, L100.0100, L501.4020 #### [facility] [address] [place], [address] RDW SD 38.9 fl Normal 35.1-43.9 [facility] Comment on above: Order Comment: REDRA W. PREVIOUS SPECIMEN REJECTED DUE TO CLOTTED. 10/27/24 1105 Performed By: #### L 500.2500, L100.0100, L501.4020 #### [facility] [address] [place], [address] WBC (Bld) [#/Vol] 6.5 10*3/uL Normal 4.4-11.0 [facility] Comment on above: Order Comment: REDRA W. PREVIOUS SPECIMEN REJECTED DUE TO CLOTTED. 10/27/24 1105 Performed By: #### L 500.2500, L100.0100, L501.4020 #### [facility] [address] [place], [address] Absolute Neut Normal 2.0-7.7 [facility] Comment on above: Result Comment: This specimen has been REJECTED due to Laboratory criteria: Clotted/HEMOLYSIS. [facility] has been notified of need of recollection. 10/27/24 1103 Marianna Clapper Performed By: #### L 100.0100, L500.2500 #### [facility] [address] [place], [address] HCT Normal 40-54 [facility] Comment on above: Result Comment: This specimen has been REJECTED due to Laboratory criteria: Clotted/HEMOLYSIS. [facility] has been notified of need of recollection. 10/27/24 1103 Marianna Clapper Performed By: #### L 100.0100, L500.2500 #### [facility] [address] [place], [address] HGB Normal 13.0-16.5 [facility] Comment on above: Result Comment: This specimen has been REJECTED due to Laboratory criteria: Clotted/HEMOLYSIS. [facility] has been notified of need of recollection. 10/27/24 1103 Marianna Clapper Performed By: #### L 100.0100, L500.2500 #### [facility] [address] [place], [address] MCH Normal 27.0-32.0 [facility] Comment on above: Result Comment: This specimen has been REJECTED due to Laboratory criteria: Clotted/HEMOLYSIS. [facility] has been notified of need of recollection. 10/27/24 1103 Marianna Clapper Performed By: #### L 100.0100, L500.2500 #### [facility] [address] [place], [address] MCHC Normal 32-36 [facility] Comment on above: Result Comment: This specimen has been REJECTED due to Laboratory criteria: Clotted/HEMOLYSIS. [facility] has been notified of need of recollection. 10/27/24 1103 Marianna Clapper Performed By: #### L 100.0100, L500.2500 #### [facility] [address] [place], [address] MCV Normal 80-94 [facility] Comment on above: Result Comment: This specimen has been REJECTED due to Laboratory criteria: Clotted/HEMOLYSIS. [facility] has been notified of need of recollection. 10/27/24 1103 Marianna Clapper Performed By: #### L 100.0100, L500.2500 #### [facility] [address] [place], [address] NEUT% Normal 47-70 [facility] Comment on above: Result Comment: This specimen has been REJECTED due to Laboratory criteria: Clotted/HEMOLYSIS. [facility] has been notified of need of recollection. 10/27/243 Marianna Clapper Performed By: #### L 100.0100, L500.2500 #### [facility] [address] [place], [address] PLT Normal 150-450 [facility] Comment on above: Result Comment: This specimen has been REJECTED due to Laboratory criteria: Clotted/HEMOLYSIS. [facility] has been notified of need of recollection. 10/27/243 Marianna Clapper Performed By: #### L 100.0100, L500.2500 #### [facility] [address] [place], [address] RBC Normal 4.6-6.2 [facility] Comment on above: Result Comment: This specimen has been REJECTED due to Laboratory criteria: Clotted/HEMOLYSIS. [facility] has been notified of need of recollection. 10/27/24 1103 Marianna Clapper Performed By: #### L 100.0100, L500.2500 #### [facility] [address] [place], [address] RDW CV Normal 11.6-14.6 [facility] Comment on above: Result Comment: This specimen has been REJECTED due to Laboratory criteria: Clotted/HEMOLYSIS. [facility] has been notified of need of recollection. 10/27/24 1103 Marianna Clapper Performed By: #### L 100.0100, L500.2500 #### [facility] [address] [place], [address] RDW SD Normal 35.1-43.9 [facility] Comment on above: Result Comment: This specimen has been REJECTED due to Laboratory criteria: Clotted/HEMOLYSIS. [facility] been notified of need of recollection. 10/27/24 1103 Marianna Clapper Performed By: #### L 100.0100, L500.2500 #### [facility] [address] [place], [address] WBC Normal 4.4-11.0 [facility] Comment on above: Result Comment: This specimen has been REJECTED due to Laboratory criteria: Clotted/HEMOLYSIS. [facility] has been notified of need of recollection. 10/27/24 1103 Marianna Clapper Performed By: #### L 100.0100, L500.2500 #### [facility] [address] [place], [address] CTA Chest W/WO Contraston CTA Chest W/WO Contrast [facility] Imaging Services [address] [place] [address] CTA Chest W/WO Contrast MR#: [id number] Acct: [id number] Name: RACHELLELAYNE Cindy Rep #: [id number] : 1990 M 33 From: Erich Gann MD PCP: Care Physician,No Primary Status: REG ER Study: CTA Chest W/WO Contrast Date of Exam: 10/27/24 Exam# [id number] Ordering Dr: Jono Johnson MD :[id number] STUDY: CTA CHEST REASON FOR EXAM: Male, 33 years old. cp and known DVT RADIATION DOSAGE (If Supplied By Facility): CTDIvol = ( 11.60 ) mGy, DLP = ( 548.17 ) mGycm TECHNIQUE: The examination was performed with the intravenous administration of IV 100mL Isovue-370. Post-processing of the angiographic images was performed, with multiplanar reformation and 3D reconstruction. Individualized dose optimization techniques were used for this CT. COMPARISON: None. _ FINDINGS: Normal enhancement of the main pulmonary artery and right and left pulmonary arteries. Normal enhancement of the bilateral peripheral pulmonary arteries. There is no demonstrated pulmonary embolism. Normal thoracic aorta and visualized great vessels. There is no demonstrated aortic dissection. Normal heart and pericardium. Normal mediastinum. Normal hilar regions. Normal visualized trachea and bronchi. The lungs are well expanded. Normal pulmonary parenchyma. Normal pleura. Normal chest wall structures. Normal osseous structures. Normal visualized upper abdomen. _ CT/CTA Chest W/WO Contrast IMPRESSION: Normal CTA chest examination, without a demonstrated pulmonary embolism or arterial dissection. Electronically Signed: Erich Gann MD at 12:08 EST , CC: Dr. Jono Johnson MD; No Primary Care Physician Configuration Management Analyst: Signed Normal [facility] Emergency Department Summary on 10-27-2024 Emergency Department Summary [facility] Medical Records Department [address] [place] [address] Emergency Department Summary 10/27/24 MR#: [id number] Acct: [id number] Name: BUSHLAYNE Cindy Rep #: [id number] : 1990 33 From: Jono Johnson MD PCP: Care Physician,No Primary Status:REG ER Location: ED HPI History of Present Illness Chief Complaint: Chest Pain Informant: patient Onset/Context/Theodore ing Onset: Days Activity at onset: gradual Timing: Intermittent Quality: Positive for Sharp Location: Right Chest and Left Chest Current Severity: Mild Maximum Severity: Mild Worsened By: Breathing Relieved By: Nothing Associated Symptoms: Positive for Dyspnea; Negative for Nausea, Vomiting, Diaphoresis, Cough, Fever, Lightheadedness, Acid Reflux or Palpitations Narrative Narrative: 33-year-old [place] male history of prior DVT and factor V Leiden only on aspirin. He was seen and worked up for this by physicians at another facility. Said he was never put on a blood thinner besides aspirin. He had leg swelling in his left leg for more than a year. He also has some in his right. States now for last several days he had intermittent chest pain worse with deep breathing. Denies any hemoptysis. Mild shortness of breath with exertion. No cardiac history or prior cardiac or chest surgery. He denies any fever or significant cough. Prior Similar Symptoms: No Recent Illness/Hospitali zation: No CVD Risk Factors: Negative for Hypertension or Diabetes PE Risk Factors: Positive for Prior DVT or PE; Negative for Recent Travel/Surgery, Recent Immobilization, Cancer or OCP + Smoking + >/=35 TAD Risk Factors: Negative for Marfan's Syndrome PFSH PFSH Medical History no medical history Home Medications ???Medication ???Instructions ???Recorded ???Last Taken ???Type NK 10/27/24 Unknown History Allergy/AdvReac Type Severity Reaction Status Date / Time No Known Allergies Allergy Verified 10/27/24 10:04 Family History no significant family his Surgical History no surgical history Social History Smoking Status: Never smoker ROS ROS ED ROS Narrative Chest pain. Dyspnea. Constitutional Constitutional ED: Denies chills or fever(s) Eyes Eyes: Reports none ENT ENT ED: Denies ear pain Cardiovascular Cardiovascular: Reports as per HPI and chest pain; Denies palpitations or racing heartbeat Respiratory/Chest Respiratory/Chest : Reports dyspnea and dyspnea on exertion Gastrointestinal Gastrointestinal: Denies abdominal pain Genitourinary Genitourinary ED: Denies dysuria or hematuria Musculoskeletal Musculoskeletal: Denies arthralgias Integumentary Denies abscess Neurologic Neurologic: Denies headache(s) Psychiatric Psychiatric: Denies anxiety or depression Endocrine Endocrinology: Denies cold intolerance Hematologic/Lymph atic Hematologic/Lymph atic: Denies easy bleeding or easy bruising Allergic/Immunolo gic Allergic/Immunolo gic ED: Denies mouth swelling, tongue swelling or urticaria EXAM Physical Exam Narrative Exam Narrative: 33-year-old male vital signs stable afebrile. Pulse ox 98% on room air no signs of hypoxia. H EENT exam unremarked. Neck nontender. Lungs clear to auscultation bilaterally. Heart regular rate and rhythm no murmur rate about 95. Chest wall and ribs nontender. No reproducible pain. Abdomen soft nontender. Moving all 4 extremities. He has 1+ pitting edema both lower extremities left greater than right Normal dorsi plantarflexion. 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 Back nontender. Neurologically is awake and alert. Answer questions following commands. No focal motor deficits. Const Vital Signs: 10/27/24 10:03 10/27/24 10:35 10/27/24 12:03 Temperature 98 F Temperature Source Temporal Pulse Rate 79 70 Respiratory Rate 18 16 Blood Pressure 141/68 H 131/80 H Blood Pressure Mean 92 97 Pulse Ox 98 98 99 Oxygen Delivery Method Room Air Room Air Positive well nourished and well developed; Negative for cachectic, contractures or unkempt Constitutional Narrative: BMI of 42. General Appearance ED: well developed and NAD; Negative for unkempt, cachectic, contractures or pallor Nutritional Appearance: Negative for cachectic HEENT Reports moist mucous membranes normocephalic and atraumatic; Negative for trauma or tenderness Eyes PERRL and EOMs intact bilaterally General Eye ED: Negative for pale conjunctiva or scleral icterus Neck no lymphadenopathy, supple and no JVD General: Negative for tenderness Chest Wall inspection of chest normal and palpation of chest normal Resp normal respiratory effort and clear to auscultation bilaterally Effort and Inspection: Negative for respiratory distress Auscultation: Negative for rales, (more content not included)... Normal [facility] L501.4020on 10-27-2024 TROPONIN-I HS 4 pg/mL Normal 3.0-78.0 [facility] Comment on above: Order Comment: 6REDR AW. PREVIOUS SPECIMEN REJECTED DUE TO HEMOLYSIS. 10/27/24 1105 1 Result Comment: Kalin maxwell Note: New Test Units and Gender Specific Reference Ranges. For more information see Policy Stat Procedure [place] High Sensitivity Troponin (TNIH) and attachments. Performed By: #### L 500.2500, L100.0100, L501.4020 #### [facility] [address] [place], [address] Venous Duplex US, Unilateral on 10-27-2024 Venous Duplex US, Unilateral [facility] [address] [place] [address] Venous Duplex US, Unilateral 10/27/24 1132 MR#: [id number] Acct: [id number] Name: LAYNE BUSH Rep #: [id number] : 1990 33 From: Gregg Montemayor MD Attending Dr: Status: DEP ER Ordering Dr: Jono Johnson MD Date: 10/27/24 Location: ED Sex: M C Admitted: Reason For Study: LLE Swelling RIGHT LEFT FV is compressible, spontaneous, phasic, GSV is normal. competent and demonstrates normal CFV is compressible, spontaneous, phasic, augmentation. competent, and demonstrates normal Procedure augmentation. This is a venous duplex using B-mode, color FV is compressible, spontaneous, phasic, flow and spectral Doppler. competent and demonstrates normal Exam performed portable in ED. augmentation. The exam was diagnostic. POP V is compressible, phasic, and A preliminary report was called and/or faxed INCOMPETENT for greater than 1.0 second. to ED mixer dry food products Stacy. Popliteal vein measures approximately 2.43 x 2.39cm at mid vessel. T/P Trunk is compressible. PTV is compressible. LT PerV is compressible. VL/Venous Duplex US, Unilateral Interpretation Summary Deep veins of the left lower extremity are patent and compressible segmentally. There is no evidence of left lower extremity deep vein thrombosis. The left great saphenous vein appears patent and compressible segmentally. Reflux noted in left popliteal vein. Vessel dilated to 2.43 cm. Ordering Physician: Jono Johnson Referring Physician: N/A Performed By: Fortunaot Patel, RVT 10/27/241652 Date _ Gregg Montemayor MD CC: Dr. Jono Johnson MD; No Primary Care Physician Date Dictated: 10/27/24 1132 Date Transcribed: 10/27/241652 Configuration Management Analyst: Signed [facility] .GFRon 09-24-2023 GFR Non- 108 ml/min/1.73sqm Normal [facility] ([place]) Comment on above: Result Comment: GFR Population mean for , Non- Americans Ages 20-29 = 116 mL/min/1.73 sq.m. Ages 30-39 = 107 mL/min/1.73 sq.m. Ages 40-49 = 99 mL/min/1.73 sq.m. Ages 50-59 = 93 mL/min/1.73 sq.m. Ages 60-69 = 85 mL/min/1.73 sq.m. Ages 70+ = 75 mL/min/1.73 sq.m. Chronic Kidney Disease: Less than 60 mL/min/1.73 square meters End Stage Renal Disease: Less than 15 mL/min/1.73 square meters Performed By: #### G FR, CMP, TSH #### [address] [address] GFR 131 ml/min/1.73sqm Normal [facility] ([place]) Comment on above: Result Comment: GFR Population mean for , Non- Americans Ages 20-29 = 116 mL/min/1.73 sq.m. Ages 30-39 = 107 mL/min/1.73 sq.m. Ages 40-49 = 99 mL/min/1.73 sq.m. Ages 50-59 = 93 mL/min/1.73 sq.m. Ages 60-69 = 85 mL/min/1.73 sq.m. Ages 70+ = 75 mL/min/1.73 sq.m. Chronic Kidney Disease: Less than 60 mL/min/1.73 square meters End Stage Renal Disease: Less than 15 mL/min/1.73 square meters Performed By: #### Ruth DAMIAN CMP TSH #### [address] [address] CMPon 09-24-2023 Albumin Level 3.8 G/dL Normal 3.5-5.0 [facility] ([place]) Comment on above: Performed By: #### Ruth DAMIAN CMP, TSH #### [address] [address] Albumin/Globulin [Mass ratio] 1.0 {ratio} Low 1.1-2.5 [facility] ([place]) Comment on above: Performed By: #### Ruth DAMIAN CMP, TSH #### [address] [address] ALP [Catalytic activity/Vol] 130 U/L Normal 40-135 [facility] ([place]) Comment on above: Performed By: #### Ruth DAMIAN CMP, TSH #### [address] [address] ALT [Catalytic activity/Vol] 63 U/L Normal 16-63 [facility] ([place]) Comment on above: Performed By: #### Ruth DAMIAN CMP, TSH #### [address] [address] AST [Catalytic activity/Vol] 37 U/L Normal 10-40 [facility] ([place]) Comment on above: Performed By: #### Ruth DAMIAN CMP, TSH #### [address] [address] Bili Total 0.2 mg/dL Normal 0.2-1.0 [facility] ([place]) Comment on above: Result Comment: Use of this assay is not recommended for patients undergoing treatment with eltrombopag due to the potential for falsely elevated results. Performed By: #### Ruth DAMIAN CMP, TSH #### [address] [address] BUN/Creatinine Ratio 17 ratio Normal 7-27 [facility] ([place]) Comment on above: Performed By: #### G FR, CMP, TSH #### [address] [address] Calcium [Mass/Vol] 8.8 mg/dL Normal 8.4-10.2 [facility] ([place]) Comment on above: Performed By: #### G FR, CMP, TSH #### [address] [address] Chloride [Moles/Vol] 103 mmol/L Normal 98-107 [facility] ([place]) Comment on above: Performed By: #### G FR, CMP, TSH #### [address] [address] CO2 [Moles/Vol] 30 mmol/L High 22-29 [facility] ([place]) Comment on above: Performed By: #### G FR, CMP, TSH #### [address] [address] Creatinine [Mass/Vol] 0.82 mg/dL Normal 0.70-1.30 [facility] ([place]) Comment on above: Performed By: #### G FR, CMP, TSH #### [address] [address] Electrolyte Balance 7.0 mEq/L Normal 4.0-15.0 [facility] ([place]) Comment on above: Performed By: #### G FR, CMP, TSH #### [address] [address] Globulin 3.7 G/dL Normal [facility] ([place]) Comment on above: Performed By: #### G FR, CMP, TSH #### [address] [address] Glucose [Mass/Vol] 101 mg/dL Normal 70-105 [facility] ([place]) Comment on above: Performed By: #### G FR, CMP, TSH #### [address] [address] Potassium [Moles/Vol] 4.7 mmol/L Normal 3.5-5.1 [facility] ([place]) Comment on above: Performed By: #### G FR, CMP, TSH #### [facility] [address] [place], [place] [address] Sodium [Moles/Vol] 140 mmol/L Normal 136-145 [facility] ([place]) Comment on above: Performed By: #### G FR, CMP, TSH #### [facility] [address] [place], [place] [address] Total Protein 7.5 G/dL Normal 6.4-8.2 [facility] ([place]) Comment on above: Performed By: #### G FR, CMP, TSH #### [facility] [address] [place], [place] [address] Urea nitrogen [Mass/Vol] 14 mg/dL Normal 7-18 [facility] ([place]) Comment on above: Performed By: #### G FR, CMP, TSH #### [facility] [address] [place], [place] [address] LABORATORYOrdered By: SYSTEM SYSTEM on 09-24-2023 Albumin BCP dye [Mass/Vol] 3.8 G/dL Normal 3.5 - 5.0 G/dL AO ADM SS Albumin/Globulin [Mass ratio] 1.0 {ratio} Low 1.1 - 2.5 ratio AO ADM SS ALP [Catalytic activity/Vol] 130 U/L Normal 40 - 135 U/L AO ADM SS ALT With P-5'-P [Catalytic activity/Vol] 63 U/L Normal 16 - 63 U/L AO ADM SS AST With P-5'-P [Catalytic activity/Vol] 37 U/L Normal 10 - 40 U/L AO ADM SS Bilirubin [Mass/Vol] 0.2 mg/dL Normal 0.2 - 1 .0 mg/dL AO ADM SS Comment on above: Interpretive Data: U se of this assay is not recommended for patients undergoing treatment with eltrombopag due to the potential for falsely elevated results. Calcium [Mass/Vol] 8.8 mg/dL Normal 8.4 - 10. 2 mg/dL AO ADM SS Chloride [Moles/Vol] 103 mmol/L Normal 98 - 10 7 mmol/L AO ADM SS CO2 [Moles/Vol] 30 mmol/L High 22 - 29 mmol/L AO ADM SS Creatinine [Mass/Vol] 0.82 mg/dL Normal 0.70 - 1.30 mg/dL AO ADM SS Electrolyte Balance 7.0 mEq/L Normal 4.0 - 15 .0 mEq/L AO ADM SS GFR/1.73 sq M.predicted among blacks MDRD (S/P/Bld) [Vol rate/Area] 131 ml/min/1.73sqm Invalid Interpretation Code AO Chemistry S Comment on above: Interpretive Data: GFR Population mean for , Non- Americans Ages 20-29 = 116 mL/min/1.73 sq.m. Ages 30-39 = 107 mL/min/1.73 sq.m. Ages 40-49 = 99 mL/min/1.73 sq.m. Ages 50-59 = 93 mL/min/1.73 sq.m. Ages 60-69 = 85 mL/min/1.73 sq.m. Ages 70+ = 75 mL/min/1.73 sq.m. Chronic Kidney Disease: Less than 60 mL/min/1.73 square meters End Stage Renal Disease: Less than 15 mL/min/1.73 square meters GFR/1.73 sq M.predicted among non-blacks MDRD (S/P/Bld) [Vol rate/Area] 108 ml/min/1.73sqm Invalid Interpretation Code AO Chemistry S Comment on above: Interpretive Data: GFR Population mean for , Non- Americans Ages 20-29 = 116 mL/min/1.73 sq.m. Ages 30-39 = 107 mL/min/1.73 sq.m. Ages 40-49 = 99 mL/min/1.73 sq.m. Ages 50-59 = 93 mL/min/1.73 sq.m. Ages 60-69 = 85 mL/min/1.73 sq.m. Ages 70+ = 75 mL/min/1.73 sq.m. Chronic Kidney Disease: Less than 60 mL/min/1.73 square meters End Stage Renal Disease: Less than 15 mL/min/1.73 square meters Globulin 3.7 G/dL Invalid Interpretation Code AO ADM SS Glucose [Mass/Vol] 101 mg/dL Normal 70 - 105 mg/dL AO ADM SS Potassium [Moles/Vol] 4.7 mmol/L Normal 3.5 - 5.1 mmol/L AO ADM SS Protein [Mass/Vol] 7.5 G/dL Normal 6.4 - 8.2 G/dL AO ADM SS Sodium [Moles/Vol] 140 mmol/L Normal 136 - 145 mmol/L AO ADM SS TSH Qn 2.04 m[IU]/L Normal 0.36 - 3.74 mcIU/mL AO ADM SS Urea nitrogen [Mass/Vol] 14 mg/dL Normal 7 - 18 mg/d L AO ADM SS Urea nitrogen/Creatinine [Mass ratio] 17 ratio Normal 7 - 27 ratio AO ADM SS TSHon 09-24-2023 TSH Qn 2.04 m[IU]/L Normal 0.36-3.74 [facility] ([place]) Comment on above: Performed By: #### G FR, CMP, TSH #### [address] [address] Vital Signs Date Time Vital Sign Value Performing Clinician Marlene melendez 04-24-2025 15:02-0400 Body temperature 98.9 [degF] No Primary Care Physician [facility] 04-24-2025 15:02-0400 Diastolic blood pressure 75 mm[Hg] No Primary Care Physician [facility] 04-24-2025 15:02-0400 Heart rate 90 /min No Primary Care Physician [facility] 04-24-2025 15:02-0400 Respiratory rate 18 /min No Primary Care Physician [facility] 04-24-2025 15:02-0400 SaO2% (BldA) [Mass fraction] 97 % No Primary Care Physician [facility] 04-24-2025 15:02-0400 Systolic blood pressure 135 mm[Hg] No Primary Care Physician [facility] 04-24-2025 09:42-0400 Body height 182.88 cm No Primary Care Physician [facility] 04-24-2025 09:42-0400 Body mass index (BMI) [Ratio] 41.3 kg/m2 No Primary Care Physician [facility] 04-24-2025 09:42-0400 Body weight 138.3 kg No Primary Care Physician [facility] Encounters Encounter Date Encounter Type Care Provider Facility Start: 04-24-2025 End: 04-24-2025 Emergency department patient visit No Primary Care Physician -Emergency Department Work Phone: Start: 10-27-2024 ambulatory No Primary Car e Physician Facility:[facility] Start: 10-27-2024 End: 10-27-2024 Emergency department patient visit No Primary Care Physician Facility:[facility] Start: 09-24-2023 End: 09-25-2023 ambulatory 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 Facility:[facility] Start: 09-24-2023 End: 09-24-2023 Patient encounter procedure 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 [facility] Procedures Date Procedure Procedure Detail Performing Clinician Start: 04-24-2025 Estimated creatinine clearance No Primary Care Physician Plan of Treatment Date Care Activity Detail Author Start: 04-24-2025 [facility] Patient Education ED Cellulitis [facility] Work Phone: Patient referral [facility] Work Phone: Payers Date Payer Category Payer Unknown [id number] 2023 Self-pay 1990 Unknown [id number] [id number] [id number] 1990 Unknown [id number] 2.16.8 [id number] Unknown [id number] 2.16.8 [id number] Unknown [id number] 2.16.8 [id number] Social History Date Type Detail Facility Start: 07-10-2019 End: 04-24-2025 Tobacco smoking status Never smoked tobacco (finding) [facility] Start: 1990 Sex Assigned At Male A [facility] Discharge summary 04-24-2025 Note Date & Type Note Facility 04-24-2025 Discharge summary [facility] Discharge summary 04-24-2025 Note Date & Type Note Facility 04-24-2025 Discharge summary Note Date/Time April 24, 2025 2:46 pm [facility] Medical Records Department [address] [place] [address] Emergency Department Summary 04/24/25 MR#: [id number] Acct: [id number] Name: LAYNE BUSH Rep #:[id number] : 1990 34 From: Nkechi Weir PCP: Care Physician,No Primary Status :REG ER Location: ED HPI History of Present Illness Chief Complaint: Cellulitis Informant: patient Narrative Narrative: Patient is a 34-year-old [place]ze male with history of chronic swelling of his leftlower extremity and possible phlebitis of the left lower extremity diagnosed in October 2024. A DVT study at that time which was reviewed and was negative however he did have incompetent blood flow of the popliteal vein at that time. He notes that over the past 2 days he has had increased redness, swelling, discomfort of the left lower leg and associated fever. States he had a fever of101.8 this morning at home. He did take Tylenol prior to arrival. He states chronically he has of some's chronic skin changes to the lower leg from an injury 7 years ago and he is always has swelling of the leg compared to the right. He states the swelling tends to get better in the morning after he is elevated his leg overnight and worse if he is on it a lot or has a short turnaround from working in the evening to come back to work early in the morning. He denies any shortness of breath. States he has some mild nausea butdenies any vomiting. No other complaints or concerns reported at this time denies any known history of diabetes. PFSH PFSH Medical History no medical history Home Medications ?Medication ?Instructions ?Recorded ?Last Taken ?Type cefpodoxime 200 mg tablet 200 mg PO Q12H #20 tabs 04/06 Unknown Rx Allergy/AdvReac Type Severity Reaction Status Date / Time No Known Allergies Allergy Verified 04/24/25 09:44 Family History no significant family his Surgical History no surgical history Social History Smoking Status: Never smoker EXAM Physical Exam Const Vital Signs: 04/24/25 09:42 04/24/25 10:37 04/24/25 11:00 Temperature 98.9 F 98.3 F 98.9 F Temperature Source Oral Oral Oral Pulse Rate 93 89 79 Respiratory Rate 18 16 16 Blood Pressure 148/88 H 125/79 H 122/81 H Blood Pressure Mean 108 94 94 Pulse Ox 99 98 99 Oxygen Delivery Method Room Air Room Air Room Air 04/24/25 12:00 04/24/25 13:00 Temperature 98.8 F 100.2 F H Temperature Source Oral Oral Pulse Rate 72 90 Respiratory Rate 16 18 Blood Pressure 124/81 H 134/89 H Blood Pressure Mean 95 104 Pulse Ox 99 97 Oxygen Delivery Method Room Air Room Air MDM MDM MDM Narrative Medical decision making narrative: Patient valuated for fever, worsening pain and redness of his left lower extremity. Differential includes sepsis, cellulitis and DVT. Compartments are soft. Thereis no crepitus. There is no rapid progression in the emergency room and on repeat evaluation low suspicion for necrotizing fasciitis. Lab work including CBC, BMP and lactate is all normal. 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 I suspect is chronic edema and likely poor venous return predisposed him for cellulitis. Patient given a dose of Unasyn in the ER. Does spike a fever and is given Tylenol and Zofran for this. And he states that he feels comfortable going hometo be treated outpatient with antibiotics. Will start him on cefpodoxime and discharged home. Is given a good Rx coupon code as we do not have commercial insurance. Given return precautions. Counseled any worsening symptoms indication return the emergency room. Will give referral for primary care as well as vascular surgery for outpatient follow-up. Harrison wrap applied to the left lower extremity for swelling. Lab Data Attestation: I reviewed the patient's lab results. Labs: Laboratory Results - last 24 hr 04/24/25 04/24/25 10:44 12:47 WBC 6.0 RBC 5.02 Hgb 14.5 Hct 42.5 MCV 84.7 MCH 28.9 MCHC 34.1 RDW Std Deviation 38.6 RDW Coeff of Meche 12.7 Plt Count 200 MPV 9.4 Sodium 135 Potassium 4.1 Chloride 102 Carbon Dioxide 21.4 Anion Gap 11 BUN 9 Creatinine 0.73 Estim Creat Clear Calc 203.53 Est GFR (MDRD) Non-Af 121 BUN/Creatinine Ratio 12.1 Glucose 117 H Lactic Acid Cancelled < 1.0 Calcium 8.6 Discharge Plan Triage Chief Complaint: Cellulitis Other Complaint: Lower Extremity Injury ED Provider: Nkechi Islas Dx/Rx/DC Orders Clinical Impression: Cellulitis of left leg Prescriptions: New cefpodoxime 200 mg tablet 200 mg PO Q12H Qty: 20 0RF Rx Instructions: must administer with a meal/food Primary Care Provider: Care Physician,No Primary Referrals: Gregg Montemayor MD [Med Staff - Active Staff] - Care Physician,No Primary [Primary Care Provider] - Andrez Brown [employer]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 He had been given the [employer] coupon card. The paper does say [facility] but the code is the same regardless of the pharmacy. If your symptoms are worsening especially after 48 hours of antibiotics please return [facility] emergency room. Continue take Tylenol at home as needed for pain and fever. Elevate your leg is much as possible. Really try to rest and take it easy overthe next few days. Follow-up with both vascular surgery and family medicine. Print Language: Turkish Disposition Disposition: Home, Self Care What to do if you have Problems For any increased pain, shortness of breath, bleeding, nausea or vomiting, chestpain, or any unexpected problems, contact your Primary Care Provider. Call [facility] ([phone]) or report to the closest Emergency Room. Call 911 if necessary. 04/24/25 1446 <Electronically signed by Nkechi Islas DO> Cosigner Signature (if applicable): CC: No Primary Care Physician ~ Signed [facility] Work Phone: Evaluation + Plan note Note Date & Type Note Facility Evaluation + Plan note No data available for this section [facility] Evaluation note Note Date & Type Note Facility Evaluation note No assessment information availa ble [facility] Work Phone: Hospital Discharge instructions Note Date & Type Note Facility Hospital Discharge instructions No data available for this section [facility] Hospital Discharge instructions Note Date & Type Note Facility Hospital Discharge instructions Additional Instructions I prescription was sent to [facility] (after further vesication was actually a [facility]). He had been given the [facility] coupon card. The paper does say jennie Ellis but the code is the same regardless of the pharmacy. If your symptoms are worsening especially after 48 hours of antibiotics please return to the emergency room. Continue take Tylenol at home as needed for pain and fever. Elevate your leg is much as possible. Really try to rest and take it easy over the next few days. Follow-up with both vascular surgery and family medicine. [facility] Work Phone: Progress note Note Date & Type Note Facility Progress note No data available for this section [facility] Reason for referral (narrative) Note Date & Type Note Facility Reason for referral (narrative) No reason for referral information available [facility] Work Phone: Summary Purpose Family History No Family History Records Found Advance Directives Advance Directive Response Recorded Date/ Time Do you have a Healthcare Power of Extruding Machine Operator? Yes April 24, 2025 10:38am Name of Medical Power of Extruding Machine Operator - IN[place] April 24, 2025 10:38am Chief Complaint and Reason for Visit Chief Complaint Admit Date LOWER LEFT LEG April 24, 2025 9:41 am Additional Source Comments Patient Care team informatio n (unrecognized section and content) Team Status: Active Member Role Status Dates No Primary Care Physician Primary Care Provider Active Team Status: Inactive Member Role Status Dates No Primary Care Physician Primary Care Provider Active Start: April 24, 2025 End: April 24, 2025 Dr. Nkechi Islas , DO Emergency Provider Active Start: April 24, 2025 End: April 24, 2025 (unrecognized sect ion and content) No Status Records FoundNo Status Records Found INFORMATION SOURCE (unrecogn ized section and content) DATE CREATED AUTHOR 09/25/2023 [facility] ([place]) DATE CREATED AUTHOR AUTHOR'S CON ATALEXIA 11/26/2024 [facility] Goals (unrecognized section and content) Goals may be documented in a n alternate section FOR RECORDS PERTAINING TO PATIENTS WHO ARE OR HAVE BEEN ENROLLED IN A CHEMICAL DEPENDENCY/SUBSTANCEABUSE PROGRAM, SOME INFORMATION MAY BE OMITTED. This clinical summary was aggregated from multiple sources. Caution should be exercised in using it in the provision of clinical care. This summary normalizes information from multiple sources, and as a consequence, information in this document may materially change the coding, format and clinical context of patient data. In addition, data may be omitted in some cases. CLINICAL DECISIONS SHOULD BE BASED ON THE PRIMARY CLINICAL RECORDS. [email or web address] provides no warranty or guarantee of the accuracy or completeness of information in this document.
[2025-04-25] MEDS: 0.9% Normal Saline (1000mL) 1,000 ML 1000 ML IV ×2 (11:37→12:44)
[2025-04-25] MEDS: Ondansetron 4 MG/2 ML Vial IV (11:38)
[2025-04-25] MEDS: Ketorolac 15 MG/ML Vial IV (11:38)
[2025-04-25 11:40] LABS: Basophil% 0.3 % (0-1); Hematocrit 42.1 % (40-54); Hemoglobin 14.7 g/dL (13.0-16.5); Lymphocyte % 14.2 % (19-41); Mean Corp Hgb Conc 34.9 g/dL (32-36); Mean Corpuscular Hgb 29.2 pg (27.0-32.0); Mean Corpuscular Volume 83.7 fL (80-94); Mean Platelet Vol. 8.9 fl (6.2-12.0); Monocyte% 9.4 % (0-10); Neutrophil % 75.8 % (47-70); Platelet Count 209 K/mm3 (150-450); RBC Distribution Width CV 12.2 % (11.6-14.6); RBC Distribution Width SD 37.3 fl (35.1-43.9); Red Blood Count 5.03 M/mm3 (4.6-6.2); White Blood Count 6.6 K/mm3 (4.4-11.0)
[2025-04-25 11:41] LABS: Absolute Lymphocyte Count 0.94 X10^3/uL (0.83-4.51); Basophil# 0.02 X10^3/uL; Lymphocyte # 0.94 X10^3/ul (0.83-4.51); Monocyte# 0.62 X10^3/uL; NRBC Flagged by Analyzer 0 % (0-5); Neutrophil # 5.01 X10^3/uL (2.7-7.7)
[2025-04-25] MEDS: Metoclopramide 10 MG/2 ML Vial 5 MG IV (12:44)
[2025-04-25 12:45] LABS: Anion Gap 12 (5-15); BUN 11 mg/dL (4-19); BUN/Creat Ratio 14.9 RATIO (10-20); Calcium,Total 8.7 mg/dL (7.6-11.0); Carbon Dioxide 23.6 mmol/L (21.0-32.0); Chloride 101 mmol/L (98-108); Creatinine, Serum 0.76 mg/dL (0.70-1.20); EST Glomerular Filtration Rate 120 (>60); Glucose 110 mg/dL (70-99); Potassium 4.1 mmol/L (3.3-5.1); Sodium Level 136 mmol/L (133-145)
[2025-04-25 12:57] VITALS: BP 138/86; PULSE 60; RESP 18; O2SAT 100
[2025-04-25 14:00] VITALS: BP 132/92; PULSE 57; RESP 16; O2SAT 98
[2025-04-25 15:36] VITALS: BP 132/84; PULSE 52; RESP 14; TEMP 36.7; O2SAT 99
== END 2025-04-25 15:41 | disposition home or self-care (01) ==
PROVIDERS: Emergency Provider Emergency Medicine; Visit Provider Emergency Medicine
DX: R11.2 Nausea with vomiting, unspecified (principal); R51.9 Headache, unspecified; E86.0 Dehydration; L03.116 Cellulitis of left lower limb; R03.0 Elevated blood-pressure reading, without diagnosis of hypertension
CPT/HCPCS: 80048; 85025; 96361; 96374; 96375; 99284; J2405

== ENCOUNTER → 2025-06-08 | Outpatient (CLI) | payer SELFPAY, OTHER ==
--- NOTE | 2025-06-08 10:46 | VDLE_ITS ---
Reason For Study Reason For Study: Swelling BLE RIGHT LEFT GSV is DILATED and NON COMPRESSIBLE from mid thigh to CFV is compressible, spontaneous, phasic, competent, junction, remainder is compressible and demonstrates normal augmentation. CFV is PARTIALLY COMPRESSIBLE, DVT extends from SFJ FV is compressible, spontaneous, phasic, competent into the CFV and appears unstable and demonstrates normal augmentation. FV is compressible, spontaneous, and phasic POP V is compressible, phasic, and INCOMPETENT for No reflux study performed on Rt Leg due to DVT greater than 1.0 second. Rt calf varicosities are DILATED anD NON T/P Trunk is compressible. COMPRESSIBLE. PTV is compressible. POP V is compressible, spontaneous, and phasic. LT PerV is compressible. T/P Trunk is compressible. SFJ is INCOMPETENT and measures 0.63cm x 0.60 cm. PTV is compressible. GSV proximal thigh measures 0.46cm x 0.52 cm. RT PerV is compressible. GSV at knee measures 1.12cm x 1.07 cm. Procedure GSV INCOMPETENT throughout for greater than 0.5 This is a venous duplex using B-mode, color flow and seconds. spectral Doppler. SSV mid calf is INCOMPETENT for greater than 0.5 Exam performed in department. seconds and measures 0.41cm x 0.45 cm. Patient was scanned in reverse Trendelenburg position ASV proximal thigh is INCOMPETENT for greater than during reflux assessment. 0.5 seconds and measures 2.18cm x 2.45 cm. A preliminary report was called and/or faxed to . ASV proximal calf is INCOMPETENT for greater than 0.5 Sim. seconds and measures 0.50cm x 0.51 cm. ASV mid calf is INCOMPETENT for greater than 0.5 seconds and measures 0.73cm x 0.78 cm. ASV proximal calf is INCOMPETENT for greater than 0.5 seconds and measures 0.61cm x 0.64 cm Incompetent perf noted distal calf Chronic SVT noted Lt calf varicosities. VL/Venous Duplex US - Errol Extrem Interpretation Summary Acute deep vein thrombosis noted in the right common femoral vein and saphenofe moral junction. Acute superficial vein thrombosis noted in the right great saphenous vein and v aricosities in the right calf. Deep veins of the left lower extremity are patent and compressible segmentally. There is no evidence of left lower extremity deep vein thrombosis. The left great saphenous vein appears patent an d compressible segmentally. Positive for reflux in the left popliteal vein, saphenofemoral junction, great saphenous vein throughout, small saphenous vein, accessory saphenous vein in the thigh, accessory saphenous vein in calf x 2, and spray applicator vein in calf. Ordering Physician: Brittany Bailey Referring Physician: Brittany Bailey Performed By: Lindsay Murphy, RDCS, RVT
== END | disposition home or self-care (01) ==
LOC: CVS 10:45
PROVIDERS: Referring Provider Physician Assistant; Visit Provider Physician Assistant
DX: I82.411 Acute embolism and thrombosis of right femoral vein (principal); I82.811 Embolism and thrombosis of superficial veins of right lower extremity; I87.2 Venous insufficiency (chronic) (peripheral)
CPT/HCPCS: 93970

== ENCOUNTER 2025-10-28 07:24 | Day surgery (SDC) | payer OTHER, SELFPAY ==
[2025-10-27 07:48] VITALS: BMI 41.3
--- OUTSIDE RECORDS SUMMARY | 2025-10-28 07:27 | XMS RPT_ITS | CCD ---
Author Organization [facility] Care Team Providers Care Melter Supervisor Name Role Phone CODY NUÑEZ, MEGHA Yeung Primary Care Physician [phone] HANY ACKERMAN Attending Debbie ROSS MD, MEGHA Yeung Primary Care Unavailable HANY ACKERMAN Attending Debbie ROSS MD, MEGHA Yeung Primary Care Unavailable Care Physician, No Primary Primary Care Provider Unavailable Dr. Nkechi Islas DO Emergency Provider Dr. Rizwan Garces MD Emergency Provider [phone] Nkechi Islas DO Attending Provider [phone] Sim NUÑEZ, Dr. Escobedo Attending Provider Dr. Nkechi Islas DO Referring Provider Dez NUÑEZ, Dr. Astorga Attending Provider [phone] Care Physician, No Primary Referring Provider Un available Brittany Nieto Attending Provider Brittany Nieto Referring Provider Care Physician, No Primary Primary Care Unava ilable Rizwan Garces Attending Unavailable Care Physician, No Primary Primary Care Unava ilable Nkechi Islas Attending Unavailable Jono Johnson Attending Unavailable Care Physician, No Primary Primary Care Unava ilable Brittany Bailey Attending Unavailable Brittany Bailey Referring Unavailable Care Physician, No Primary Primary Care Unava ilable Gregg Montemayor Attending Unavailable Nkechi Islas Referring Unavailable Care Physician, No Primary Primary Care Unava ilable Jono Johnson Referring Unavailable Gregg Montemayor Attending Unavailable Care Physician, No Primary Primary Care Unava ilable Gregg Montemayor Attending Unavailable Brittany Bailey Referring Unavailable Care Physician, No Primary Primary Care Unava ilable Brittany Bailey Attending Unavailable Care Physician, No Primary Referring Unava ilable Care Physician, No Primary Primary Care Unava ilable Medications Completed/Discontinued Medications Medication Drug Class(es) Dates Sig (Normalized) Sig (Original) cefpodoxime 200 mg oral tablet (4 sources) Cephalosporin Antibacterial Start: 04-24-2025 End: 04-25-2025 take 1 tablet by mouth every twelve hours at mealtime Cefpodoxime 200 mg tablet Discontinued 200 mg PO Q12H 20 0 April 24, 2025 12:00am April 25, 2025 11:13am must administer with a meal/food ondansetron 4 mg disintegrating oral tablet (3 sources) Serotonin-3 Receptor Antagonist Start: 04-25-2025 End: 05-22-2025 take 1 tablet by mouth every eight hours as needed for nausea Ondansetron 4 mg tablet,disintegra ting Discontinued 4 mg PO EVERY 8 HOURS NEEDED as needed for Nausea 10 0 April 25, 2025 12:00am May 22, 2025 8:53am Problems Problem Classification Problem Date Documented Da te Episodic/Chronic Fluid and electrolyte disorders (3 sources) Dehydration; Translations: [Dehydration] 04-25-2025 Episodic Malaise and fatigue (1 source) Fatigue; Translations: [Other fatigue] Episodic Nausea and vomiting (4 sources) Nausea and vomiting; Translations: [Nausea with vomiting, unspecified] Onset: 05-22-2025 04-25-2025 Episodic Nonspecific chest pain (5 sources) Chest pain; Translations: [Chest pain, unspecified] Onset: 05-22-2025 11-04-2024 Episodic Other circulatory disease (3 sources) Elevated blood-pressure reading without diagnosis of hypertension; Translations: [Elevated blood-pressure reading, without diagnosis of hypertension] 04-25-2025 Episodic Other diseases of veins and lymphatics (3 sources) Vascular insufficiency; Translations: [Venous insufficiency (chronic) (peripheral)] 05-22-2025 Episodic Other diseases of veins and lymphatics (1 source) Venous insufficiency (chronic) (peripheral); Translations: [Venous insufficiency (chronic) (peripheral)] Onset: 06-12-2025 Episodic Other hematologic conditions (4 sources) H/O: blood disorder; Translations: [Personal history of diseases of the blood and blood-forming organs and certain disorders involving the immune mechanism] 11-04-2024 Episodic Other nutritional; endocrine; and metabolic disorders (3 sources) Body mass index 40+ - severely obese 04-25-2025 Chronic Phlebitis; thrombophlebitis and thromboembolism (8 sources) H/O: Deep vein thrombosis; Translations: [Personal history of other venous thrombosis and embolism] Onset: 05-22-2025 11-04-2024 Episodic Residual codes; unclassified (1 source) Localized edema; Translations: [Localized edema] Episodic Residual codes; unclassified (3 sources) Edema of lower extremity; Translations: [Localized edema] 05-22-2025 Episodic Residual codes; unclassified (1 source) Localized edema; Translations: [Localized edema] Onset: 05-22-2025 Episodic Skin and subcutaneous tissue infections (8 sources) Cellulitis of left lower limb; Translations: [Cellulitis of left lower limb] Onset: 05-22-2025 04-24-2025 Episodic Unclassified (1 source) Coagulation factor V (substance) 07-10-2019 Results Test Name Value Interpretation Reference Range Facility Venous Duplex US - Errol [facility] 06-08-2025 Venous Duplex US - Errol [facility] [address] [place] [address] Venous Duplex US - Errol [facility] 06/08/25 1051 MR#: [id number] Acct: [id number] Name: LAYNE BUSH Rep #: [id number] : 1990 34 From: Gregg Montemayor MD Attending Dr: BUBBA Regan Status: REG CLI Ordering Dr: Brittany Bailey Date: 06/08/25 Location: CVS Sex: M C Admitted: Reason For Study Reason For Study: Swelling BLE RIGHT LEFT GSV is DILATED and NON COMPRESSIBLE from mid thigh to CFV is compressible, spontaneous, phasic, competent, junction, remainder is compressible and demonstrates normal augmentation. CFV is PARTIALLY COMPRESSIBLE, DVT extends from SFJ FV is compressible, spontaneous, phasic, competent into the CFV and appears unstable and demonstrates normal augmentation. FV is compressible, spontaneous, and phasic POP V is compressible, phasic, and INCOMPETENT for No reflux study performed on Rt Leg due to DVT greater than 1.0 second. Rt calf varicosities are DILATED anD NON T/P Trunk is compressible. COMPRESSIBLE. PTV is compressible. POP V is compressible, spontaneous, and phasic. LT PerV is compressible. T/P Trunk is compressible. SFJ is INCOMPETENT and measures 0.63cm x 0.60 cm. PTV is compressible. GSV proximal thigh measures 0.46cm x 0.52 cm. RT PerV is compressible. GSV at knee measures 1.12cm x 1.07 cm. Procedure GSV INCOMPETENT throughout for greater than 0.5 This is a venous duplex using B-mode, color flow and seconds. spectral Doppler. SSV mid calf is INCOMPETENT for greater than 0.5 Exam performed in department. seconds and measures 0.41cm x 0.45 cm. Patient was scanned in reverse Trendelenburg position ASV proximal thigh is INCOMPETENT for greater than during reflux assessment. 0.5 seconds and measures 2.18cm x 2.45 cm. A preliminary report was called and/or faxed to . ASV proximal calf is INCOMPETENT for greater than 0.5 [place]. seconds and measures 0.50cm x 0.51 cm. ASV mid calf is INCOMPETENT for greater than 0.5 seconds and measures 0.73cm x 0.78 cm. ASV proximal calf is INCOMPETENT for greater than 0.5 seconds and measures 0.61cm x 0.64 cm Incompetent perf noted distal calf Chronic SVT noted Lt calf varicosities. VL/Venous Duplex US - Errol Extrem Interpretation Summary Acute deep vein thrombosis noted in the right common femoral vein and saphenofemoral junction. Acute superficial vein thrombosis noted in the right great saphenous vein and varicosities in the right calf. Deep veins of the left lower extremity are patent and compressible segmentally. There is no evidence of left lower extremity deep vein thrombosis. The left great saphenous vein appears patent and compressible segmentally. Positive for reflux in the left popliteal vein, saphenofemoral junction, great saphenous vein throughout, small saphenous vein, accessory saphenous vein in the thigh, accessory saphenous vein in calf x 2, and commercial attache vein in calf. Ordering Physician: Brittany Bailey Referring Physician: Brittany Bailey Performed By: Lindsay Murphy, PHUONG, RVT 06/08/25 1714 Date Gregg Montemayor MD CC: BUBBA Regan; No Primary Care Physician Date Dictated: 06/08/25 1051 Date Transcribed: 06/08/251713 Electrician Supervisor Airplane: Signed Normal [facility] Venous duplex ultrasound rep ortOrdered By: Gregg Montemayor on 06-08-2025 US Vein [facility] [address] [place] [address] Venous Duplex US - Errol [facility] 06/08/25 105 MR#: [id number] Acct: [id number] Name: LAYNE BUSH Rep #:[id number] : 1990 34 From: Gregg White Attending Dr: BUBBA Regan Stat us: REG CLI Ordering Dr: Brittany Bailey Date: Location: CVS Sex: M C Admitted: Reason For Study Reason For Study: Swelling BLE RIGHT LEFT GSV is DILATED and NON COMPRESSIBLE from mid thigh to CFV is compressible, spontaneous, phasic, competent, junction, remainder is compressible and demonstrates normal augmentation. CFV is PARTIALLY COMPRESSIBLE, DVT extends from SFJ FV is compressible, spontaneous, phasic, competent into the CFV and appears unstable and demonstrates normal augmentation. FV is compressible, spontaneous, and phasic POP V is compressible, phasic, and INCOMPETENT for No reflux study performed on Rt Leg due to DVT greater than 1.0 second. Rt calf varicosities are DILATED anD NON T/P Trunk is compressible. COMPRESSIBLE. PTV is compressible. POP V is compressible, spontaneous, and phasic. LT PerV is compressible. T/P Trunk is compressible. SFJ is INCOMPETENT and measures 0.63cm x 0.60 cm. PTV is compressible. GSV proximal thigh measures 0.46cm x 0.52 cm. RT PerV is compressible. GSV at knee measures 1.12cm x 1.07 cm. Procedure GSV INCOMPETENT throughout for greater than 0.5 This is a venous duplex using B-mode, color flow and seconds. spectral Doppler. SSV mid calf is INCOMPETENT for greater than 0.5 Exam performed in department. seconds and measures 0.41cm x 0.45 cm. Patient was scanned in reverse Trendelenburg position ASV proximal thigh is INCOMPETENT for greater than during reflux assessment. 0.5 seconds and measures 2.18cm x 2.45 cm. A preliminary report was called and/or faxed to . ASV proximal calf is INCOMPETENT for greater than 0.5 [place]. seconds and measures 0.50cm x 0.51 cm. ASV mid calf is INCOMPETENT for greater than 0.5 seconds and measures 0.73cm x 0.78 cm. ASV proximal calf is INCOMPETENT for greater than 0.5 seconds and measures 0.61cm x 0.64 cm Incompetent perf noted distal calf Chronic SVT noted Lt calf varicosities. VL/Venous Duplex US - Errol Extrem Interpretation Summary Acute deep vein thrombosis noted in the right common femoral vein and saphenofemoral junction. Acute superficial vein thrombosis noted in the right great saphenous vein and varicosities in the right calf. Deep veins of the left lower extremity are patent and compressible segmentally. There is no evidence of left lower extremity deep vein thrombosis. The left great saphenous vein appears patent andcompressible segmentally. Positive for reflux in the left popliteal vein, saphenofemoral junction, great saphenous vein throughout, small saphenous vein, accessory saphenous vein in the thigh, accessory saphenous vein in calf x 2, and commercial attache vein in calf. Ordering Physician: Brittany Bailey Referring Physician: Brittany Bailey Performed By: Lindsay Murphy, RDCS, RVT 06/08/25 171 Date _ Gregg Montemayor MD CC: BUBBA Regan; No Primary Care Physician ~ Date Dictated: 06/08/25 1051 Date Transcribed: 06/08/251713 Electrician Supervisor Airplane: Signed [facility] Work Phone: MR/[email or web address] 05-21-2025 MR/SUSY [facility] [address] [place] [address]. [address] [place] [address] OFFICE VISIT Date of Service: 05/22/25 MR#: [id number] Acct: [id number] Name: LAYNE BUSH Rep #: [id number] : 1990 Provider: BUBBA Regan Age/Sex: 34/M Location: [facility] [place] Status: Signed Intake Vital Signs 04/25/25 10:57 05/22/25 08:53 Height 6 ft Weight: 301 lb BP 117/82 H Blood Pressure Location Rt brachial Position Sitting Respiration 16 Pulse 74 Pulse Source Monitor Temp 98 F Temp Source Temporal Pulse Oximetry (%) 97 Oxygen Delivery Method room air Intake Visit Reasons: ER FU, varicose veins Is patient in pain?: Yes Allergies No Known Allergies Allergy (Verified 05/22/25 08:52) Have you fallen in the past year?: No PFSH Family History (Updated 05/22/25 @ 08:52 by Dipika Quinn MA) Mother Cancer Diabetes Hypertension Grandmother Diabetes Father Atrial fibrillation Social History household members: spouse and children Smoking Status: Never smoker HPI HPI HPI: LAYNE BUSH, is a 34 M who presents to the office today for evaluation of lower extremity edema as referred from the ER. He was seen in the ER on 04/24/25 for LLE cellulitis and due to his history of chronic edema and signs of venous insufficiency by exam he was referred here for follow-up. He did have a venous duplex at that time which was negative for DVT but showed chronic SVT in his L calf varicosities. He has had BLE edema varicose veins for many years but reports they have become more symptomatic over the last couple years. He also has noted worsened edema over the last 2 years; his swelling is much worse in the LLE compared to the RLE. The swelling is worst by the end of the day, it will improve with elevation. He does have associated heaviness in his legs and tenderness/achiness along the varicosities. He reports recurrent superficial thrombophlebitis but denies any known history of DVT or PE. He does have Factor V Leiden which runs in his family, but he has never been chronically anticoagulated for this. He also reports a family history of varicose veins. He has not had any prior interventions on his veins. He has not tried compression stockings. He has no other significant medical history, he does not have a PCP or take any prescription medications. ROS General General: Yes fatigue; No weight change, appetite, colon cancer, breast cancer or weakness HEENT HEENT: No difficulty swallowing, eye injury, eye surgery, swollen glands or hoarseness Endo Endocrine: No thyroid disease, diabetes mellitus, thyroid cancer, Hair loss, heat intolerance or cold intolerance Skin Skin: No rash or changing moles Musc Musculoskeletal: Yes back problems; No arthritis, rheumatoid arthritis, gout or joint pain Cardio Cardiovascular: Yes high blood pressure; No murmur, pacemaker, heart disease, atrial fibrillation, heart attack, heart stent, palpitations, shortness of breath with exertion or chest pain Psych Psychiatric: No depression, anxiety or hearing voices Resp Respiratory: No shortness of breath, No sleep apnea, No cough, No COPD, No asthma, No emphysema and No wheezing Gastro Gastrointestinal: No abdominal pain, No nausea or vomiting, No diarrhea, No constipation, No blood in stool, Yes acid reflux, No hemorrhoids, No ulcers, No gallbladder problem and No black,tarry stools Michele Hematologic: No blood thinners, No blood disorders, No bleeding, No anemia and Yes blood clots Neuro Neurologic: No system reviewed and no additional complaints, except as documented, No as per HPI, No abnormal gait, No abnormal hearing, No abnormal movements, No abnormal speech, No behavioral changes, No burning sensations, No confusion, No convulsions, No disequilibrium, No dizziness, No localized weakness, No frequent falls, No headache(s), No lack of coordination, No loss of vision, No memory loss, No numbness, No other visual disturbances, No radicular pain, No restless legs, No sensory deficit, No syncope, No tingling, No tremor(s), No weakness and No other Exam Const General: cooperative, healthy appearing, comfortable and no acute distress Orientation: alert, awake and oriented x3 HENMT Head: normocephalic and atraumatic Ears: hearing grossly normal bilaterally and external ears normal Nose: external nose normal Eyes General: appearance normal, both eyes and all related structures Neck Neck: normal visual inspection and trachea midline Resp Effort Inspection: normal respiratory effort, able to speak in complete sentences, no grunting, not labored, no respiratory distress and no retractions Auscultation: clear to auscultation bilaterally Cardio Rate: regular rate Rhythm: regular rhyth (more content not included)... Normal [facility] Absolute lymphocyte countOrd ered By: Rizwan Garces on 04-25-2025 Lymphocytes Auto (Unsp spec) [#/Vol] 0.94 10*3/uL 0.83-4.51 [facility] Absolute neutrophil countOrd ered By: Rizwan Garces on 04-25-2025 Neutrophils (Bld) [#/Vol] 5.0 10*3/uL 2.0-7.7 [facility] Anion gap in Serum or Plasma Ordered By: Rizwanwillard Garces on 04-25-2025 Anion gap [Moles/Vol] 12 mmol/L 03-19 [facility] Automated lymphocyte count a s percentage of total leukocytesOrdered By: Rizwanwillard Garces on 04-25-2025 Lymphocytes/100 WBC Auto (Unsp spec) 14.2 % Low 19-41 [facility] BUN/creatinine ratioOrdered By: Rizwanwillard Garces on 04-25-2025 Urea nitrogen/Creatinine [Mass ratio] 14.9 mg/mg - [facility] Basic Metabolic Profile (BMP )on 04-25-2025 BUN/CRE 14.9 RATIO Normal 08-24 [facility] Comment on above: Performed By: #### L 100.0500, L500.2500 #### [facility] [address] [place], [address] Calcium [Mass/Vol] 8.7 mg/dL Normal 7.6-11.0 [facility] Comment on above: Performed By: #### L 100.0500, L500.2500 #### [facility] [address] [place], [address] Chloride [Moles/Vol] 101 mmol/L Normal 98-108 [facility] Comment on above: Performed By: #### L 100.0500, L500.2500 #### [facility] [address] [place], [address] CO2 [Moles/Vol] 23.6 mmol/L Normal 21.0-32.0 [facility] Comment on above: Performed By: #### L 100.0500, L500.2500 #### [facility] [address] [place], [address] Creatinine [Mass/Vol] 0.76 mg/dL Normal 0.70-1.20 [facility] Comment on above: Performed By: #### L 100.0500, L500.2500 #### [facility] [address] [place], [address] ECRCL 192.50 ml/min Normal 50-250 [facility] Comment on above: Performed By: #### L 100.0500, L500.2500 #### [facility] [address] [place], [address] GAP 12 Normal 5-15 [facility] Comment on above: Performed By: #### L 100.0500, L500.2500 #### [facility] [address] [place], [address] GFR/1.73 sq M.predicted among non-blacks MDRD (S/P/Bld) [Vol rate/Area] 120 mL/min/{1.73_m2} Normal >60 [facility] Comment on above: Result Comment: mL/m in/1.73m2 CKD-EPI Creatinine Equation (2020) Performed By: #### L 100.0500, L500.2500 #### [facility] [address] [place], [address] Glucose [Mass/Vol] 110 mg/dL High 70-99 [facility] Comment on above: Performed By: #### L 100.0500, L500.2500 #### [facility] [address] [place], [address] Potassium [Moles/Vol] 4.1 mmol/L Normal 3.3-5.1 [facility] Comment on above: Performed By: #### L 100.0500, L500.2500 #### [facility] [address] [place], [address] Sodium [Moles/Vol] 136 mmol/L Normal 133-145 [facility] Comment on above: Performed By: #### L 100.0500, L500.2500 #### [facility] [address] [place], [address] Urea nitrogen [Mass/Vol] 11 mg/dL Normal 4-19 [facility] Comment on above: Performed By: #### L 100.0500, L500.2500 #### [facility] [address] [place], [address] Basophil percentageOrdered B y: Rizwan Garces on 04-25-2025 Basophils/100 WBC (Bld) 0.3 % 0-1 [facility] CBC W/Diff, Automatedon - Absolute Lymph 0.94 X10 3/uL Normal 0.83-4.51 [facility] Comment on above: Performed By: #### L 100.0100, L500.2500 #### [facility] [address] [place], [address] Absolute Neut 5.0 X10 3/uL Normal 2.0-7.7 [facility] Comment on above: Performed By: #### L 100.0100, L500.2500 #### [facility] [address] [place], [address] Nucleated RBC (Bld) [#/Vol] 0 10*3/uL Normal 0-5 [facility] Comment on above: Performed By: #### L 100.0100, L500.2500 #### [facility] [address] [place], [address] Basophils/100 WBC (Bld) 0.3 % Normal 0-1 [facility] Comment on above: Performed By: #### L 100.0100, L500.2500 #### [facility] [address] [place], [address] Eosinophils/100 WBC (Bld) 0.0 % Normal 0-5 [facility] Comment on above: Performed By: #### L 100.0100, L500.2500 #### [facility] [address] [place], [address] Erythrocyte distribution width (RBC) [Ratio] 12.2 % Normal 11.6-14.6 [facility] Comment on above: Performed By: #### L 100.0100, L500.2500 #### [facility] [address] [place], [address] Hematocrit (Bld) [Volume fraction] 42.1 % Normal 40-54 [facility] Comment on above: Performed By: #### L 100.0100, L500.2500 #### [facility] [address] [place], [address] Hemoglobin (Bld) [Mass/Vol] 14.7 g/dL Normal 13.0-16.5 [facility] Comment on above: Performed By: #### L 100.0100, L500.2500 #### [facility] [address] [place], [address] IG% 0.300 Normal 0.0-0.9 [facility] Comment on above: Result Comment: IG% - Immature Granulocytes (promyelocytes, myelocytes and metamyelocytes) > 1% indicates that a LEFT SHIFT is Present. Performed By: #### L 100.0100, L500.2500 #### [facility] [address] [place], [address] Lymphocytes/100 WBC (Bld) 14.2 % Low 19-41 [facility] Comment on above: Performed By: #### L 100.0100, L500.2500 #### [facility] [address] [place], [address] MCH (RBC) [Entitic mass] 29.2 pg Normal 27.0-32.0 [facility] Comment on above: Performed By: #### L 100.0100, L500.2500 #### [facility] [address] [place], [address] MCHC (RBC) [Mass/Vol] 34.9 g/dL Normal 32-36 [facility] Comment on above: Performed By: #### L 100.0100, L500.2500 #### [facility] [address] [place], [address] MCV (RBC) [Entitic vol] 83.7 fL Normal 80-94 [facility] Comment on above: Performed By: #### L 100.0100, L500.2500 #### [facility] [address] [place], [address] Monocytes/100 WBC (Bld) 9.4 % Normal 0-10 [facility] Comment on above: Performed By: #### L 100.0100, L500.2500 #### [facility] [address] [place], [address] Neutrophils/100 WBC (Bld) 75.8 % High 47-70 [facility] Comment on above: Performed By: #### L 100.0100, L500.2500 #### [facility] [address] [place], [address] Platelet mean volume (Bld) [Entitic vol] 8.9 fL Normal 6.2-12.0 [facility] Comment on above: Performed By: #### L 100.0100, L500.2500 #### [facility] Laboratory [address] [place], [address] Platelets (Bld) [#/Vol] 209 10*3/uL Normal 150-450 [facility] Comment on above: Performed By: #### L 100.0100, L500.2500 #### [facility] [address] [place], [address] RBC (Bld) [#/Vol] 5.03 10*6/uL Normal 4.6-6.2 [facility] Comment on above: Performed By: #### L 100.0100, L500.2500 #### [facility] [address] [place], [address] RDW SD 37.3 fl Normal 35.1-43.9 [facility] Comment on above: Performed By: #### L 100.0100, L500.2500 #### [facility] [address] [place], [address] WBC (Bld) [#/Vol] 6.6 10*3/uL Normal 4.4-11.0 [facility] Comment on above: Performed By: #### L 100.0100, L500.2500 #### [facility] [address] [place], [address] Carbon dioxide, total [Moles /volume] in Central venous bloodOrdered By: Rizwan Garces on 06-21-2025 CO2 [Moles/Vol] 23.6 mmol/L 21.0-32.0 [facility] Chloride assayOrdered By: Carrol Garces on 04-25-2025 Chloride [Moles/Vol] 101 mmol/L 98-108 [facility] Emergency Department Summary on 04-25-2025 Emergency Department Summary [facility] Medical Records Department [address] [place] [address] Emergency Department Summary 04/25/25 MR#: [id number] Acct: [id number] Name: LAYNE BUSH Rep #: [id number] : 1990 34 From: Rizwan Garces MD PCP: Care Physician,No Primary Status:REG ER Location: ED HPI History of Present Illness Chief Complaint: Nausea/Vomiting Detail of Chief Complaint: Nausea and vomiting, head pain Informant: patient Onset/Context/Timing Onset: Yesterday Context: Sudden Onset Timing: Continuous (Head pain is constant) and Intermittent Quality: Throbbing head pain Location: Occiput and radiates to the forehead Current Severity: Mild Maximum Severity: Moderate Worsened by: Nothing specific Relieved by: nothing Associated Symptoms Associated Symptoms: Thirst, dry mouth and lightheadedness Narrative Narrative: Patient is a 34-year-old male. He was seen yesterday and diagnosed with cellulitis of his distal left anterior leg. He reported headache yesterday. He was given Tylenol. On his way home he vomited. He is vomited 8-9 times since. He now has dry heaves. He does endorse thirst, dry mouth and lightheadedness. She had decreased urine output. He believes the rash is better. thinks it is as red. She does admit that the swelling has gone down and the area of redness is gone down. He denies fever or chills. He denies double vision blurred vision loss of vision. Nose ringing in ears or decreased hearing. He denies cardiac or respiratory symptoms. He has some abdominal discomfort with the vomiting. There is also a rash noted near the umbilicus. It is erythematous. That was not noted yesterday. Prior similar symptoms: No Recent Illness/Hospitalizati on: Yes PFSH PFSH Home Medications ???Medication ???Instructions ???Recorded ???Last Taken ???Type ondansetron 4 mg disintegrating 4 mg PO Q8H PRN PRN Nausea #10 tab s 04/25/25 Unknown Rx tablet Allergy/AdvReac Type Severity Reaction Status Date / Time No Known Allergies Allergy Verified 04/25/25 10:58 Social History (Updated 04/25/25 @ 11:[address] Rizwan Garces MD) household members: spouse and children Smoking Status: Never smoker ROS ROS ED Constitutional Constitutional ED: Denies chills, fever(s), subjective or sweats Eyes Eyes: Denies blurry vision, change in vision or diplopia ENT ENT ED: Denies ear pain, rhinorrhea or sore throat Cardiovascular Cardiovascular: Denies chest pain or palpitations Gastrointestinal Gastrointestinal: Reports nausea and vomiting; Denies abdominal pain or diarrhea Genitourinary Genitourinary ED: Reports other Details: HPI narrative Musculoskeletal Musculoskeletal: Denies arthralgias, myalgias or neck pain Integumentary Reports rash Neurologic Neurologic: Reports headache(s) and weakness; Denies paresthesias EXAM Physical Exam Const Vital Signs: 04/25/25 10:57 04/25/25 12:57 04/25/25 14:00 Temperature 98.9 F Temperature Source Temporal Pulse Rate 72 60 57 L Respiratory Rate 14 18 16 Blood Pressure 137/87 H 138/86 H 132/92 H Blood Pressure Mean 103 103 105 Pulse Ox 98 100 98 Oxygen Delivery Method Room Air Room Air Room Air Positive well nourished and well developed Constitutional Narrative: BMI is 40.2. Blood pressure slightly elevated. General Appearance ED: well developed; Negative for pallor HEENT Reports dry mucous membranes HEENT Narrative: Head is atraumatic no cephalic. Ears normal. Nares patent. TMs normal. Posterior pharynx unremarkable. Mouth ED: Yes dry mucous membranes Mouth: dry mucous membranes Eyes PERRL and EOMs intact bilaterally Eyes Narrative: There is no nystagmus. General Eye ED: Negative for pale conjunctiva or scleral icterus Neck no lymphadenopathy, supple and no JVD Resp normal respiratory effort and clear to auscultation bilaterally Cardio regular rate, regular rhythm, S1 normal heart sound, S2 normal heart sound and no murmurs GI normal to inspection, nondistended, normoactive bowel sounds, non-tender, non-distended and no masses; Negative for hepatosplenomegaly GI Narrative: There is a erythematous nonblanching rash noted that is 1 cm x 3 cm on his abdomen. There is no warmth, induration, or any other findings. Palpation: soft Extremity Extremity Narrative: Leg with erythema slight warmth. There is no induration. There is no lymphangitis. There is no neurovasc compromise. Neuro oriented x3 and CN's II-XII intact bilaterally Sensorium / Orientation: alert Psych mental status grossly normal Skin No no rashes or lesions noted and skin turgor normal General Skin Exam: elasticity normal; Negative for jaundice or pallor MDM MDM MDM Narrative Medical decision making narrative: Clinically patient appears dehydrated. 1 L normal saline w (more content not included)... Normal [facility] Eosinophil percentageOrdered By: Rizwanwillard Garces on 04-25-2025 Eosinophils/100 WBC (Bld) 0.0 % 0-5 [facility] Erythrocyte distribution wid th ratioOrdered By: Rizwanwillard Garces on 04-25-2025 Erythrocyte distribution width (RBC) [Ratio] 12.2 % 11.6-14.6 [facility] Erythrocyte distribution wid th standard deviationOrdered By: Rizwanwillard Garces on 04-25-2025 Erythrocyte distribution width (RBC) [Ratio] 37.3 fl 35.1-43.9 [facility] Glomerular filtration rate ( GFR) estimation/1.73 sq m using serum, plasma, or whole bOrdered By: Rizwanwillard Garces on 04-25-2025 GFR/1.73 sq M.predicted among non-blacks MDRD (S/P/Bld) [Vol rate/Area] 120 mL/min/{1.73_m2} >60 [facility] Comment on above: mL/min/1.73m2 CKD-EP I Creatinine Equation (2020) Hematocrit Auto (Bld) [Volum e fraction]Ordered By: Rizwanwillard Garces on 04-25-2025 Hematocrit (Bld) [Volume fraction] 42.1 % 40-54 [facility] Hemoglobin measurementOrdere d By: Rizwan Garces on 04-25-2025 Hemoglobin (Bld) [Mass/Vol] 14.7 g/dL 13.0-16.5 [facility] Immature granulocytes/100 WB C Auto (Bld)Ordered By: Rizwan Garces on 04-25-2025 Immature granulocytes/100 WBC (Bld) 0.300 % 0.0-0.9 [facility] Comment on above: IG% - Immature Granu locytes (promyelocytes, myelocytes and metamyelocytes) > 1% indicates that a LEFT SHIFT is Present. MCV (mean corpuscular volume ) determinationOrdered By: Rizwan Garces on 04-25-2025 MCV (RBC) [Entitic vol] 83.7 fL 80-94 [facility] Mean corpuscular hemoglobin (MCH) determinationOrdered By: Rizwanwillard Garces on 04-25-2025 MCH (RBC) [Entitic mass] 29.2 pg 27.0-32.0 [facility] Mean corpuscular hemoglobin concentration (MCHC) determinationOrdered By: Rizwanwillard Garces on 04-25-2025 MCHC (RBC) [Mass/Vol] 34.9 g/dL 32-36 [facility] Mean platelet volume determi nationOrdered By: Rizwan Garces on 04-25-2025 Platelet mean volume (Bld) [Entitic vol] 8.9 fL 6.2-12.0 [facility] Monocyte percentageOrdered B y: Rizwanwillard Garces on 04-25-2025 Monocytes/100 WBC (Bld) 9.4 % 0-10 [facility] Neutrophil percentageOrdered By: Rizwanwillard Garces on 04-25-2025 Neutrophils/100 WBC (Bld) 75.8 % High 47-70 [facility] Nucleated red blood cell per centageOrdered By: Rizwan Garces on 04-25-2025 Nucleated RBC/100 WBC (Bld) [Ratio] 0 % 0-5 [facility] Platelet countOrdered By: Carrol Garces on 04-25-2025 Platelets (Bld) [#/Vol] 209 10*3/uL 150-450 [facility] Potassium measurement (mass/ volume)Ordered By: Rizwan Garces on 04-25-2025 Potassium (Unsp spec) [Mass/Vol] 4.1 mmol/L 3.3-5.1 [facility] RBC Auto (Bld) [#/Vol]Ordere d By: Rizwan Garces on 04-25-2025 RBC (Bld) [#/Vol] 5.03 10*6/uL 4.6-6.2 [facility] Serum creatinine measurement (mass/volume)Ordered By: Rizwanwillard Garces on 04-25-2025 Creatinine [Mass/Vol] 0.76 mg/dL 0.70-1.20 [facility] Serum glucose measurement (m ass/volume)Ordered By: Rizwanwillard Garces on 04-25-2025 Glucose [Mass/Vol] 110 mg/dL High 70-99 [facility] Serum or plasma calcium katy urement (mass/volume)Ordered By: Rizwanwillard Garces on 04-25-2025 Calcium [Mass/Vol] 8.7 mg/dL 7.6-11.0 [facility] Serum or plasma urea nitroge n measurement (mass/volume)Ordered By: Rizwan Garces on 04-25-2025 Urea nitrogen [Mass/Vol] 11 mg/dL 4-19 [facility] Sodium levelOrdered By: Rizwan Garces on 04-25-2025 Sodium [Moles/Vol] 136 mmol/L 133-145 [facility] White blood cell (WBC) count Ordered By: Rizwanwillard Garces on 04-25-2025 WBC (Bld) [#/Vol] 6.6 10*3/uL 4.4-11.0 [facility] Anion gap in Serum or Plasma Ordered By: Nkechi Islas on 04-24-2025 Anion gap [Moles/Vol] 11 mmol/L - [facility] BUN/creatinine ratioOrdered By: Nkechi Islas on 04-24-2025 Urea nitrogen/Creatinine [Mass ratio] 12.1 mg/mg 08-24 [facility] Basic Metabolic Profile (BMP )on 04-24-2025 BUN/CRE 12.1 RATIO Normal 08-24 [facility] Comment on above: Performed By: #### L 100.0500, L500.2500 #### [facility] [address] [place], [place], [id number] Calcium [Mass/Vol] 8.6 mg/dL Normal 7.6-11.0 [facility] Comment on above: Performed By: #### L 100.0500, L500.2500 #### [facility] [address] [place], [address] Chloride [Moles/Vol] 102 mmol/L Normal 98-108 [facility] Comment on above: Performed By: #### L 100.0500, L500.2500 #### [facility] [address] [place], [address] CO2 [Moles/Vol] 21.4 mmol/L Normal 21.0-32.0 [facility] Comment on above: Performed By: #### L 100.0500, L500.2500 #### [facility] [address] [place], [address] Creatinine [Mass/Vol] 0.73 mg/dL Normal 0.70-1.20 [facility] Comment on above: Performed By: #### L 100.0500, L500.2500 #### [facility] [address] [place], [address] ECRCL 203.53 ml/min Normal 50-250 [facility] Comment on above: Performed By: #### L 100.0500, L500.2500 #### [facility] [address] [place], [address] GAP 11 Normal 5-15 [facility] Comment on above: Performed By: #### L 100.0500, L500.2500 #### [facility] [address] [place], [address] GFR/1.73 sq M.predicted among non-blacks MDRD (S/P/Bld) [Vol rate/Area] 121 mL/min/{1.73_m2} Normal >60 [facility] Comment on above: Result Comment: mL/m in/1.73m2 CKD-EPI Creatinine Equation (2020) Performed By: #### L 100.0500, L500.2500 #### [facility] [address] [place], [address] Glucose [Mass/Vol] 117 mg/dL High 70-99 [facility] Comment on above: Performed By: #### L 100.0500, L500.2500 #### [facility] [address] [place], [address] Potassium [Moles/Vol] 4.1 mmol/L Normal 3.3-5.1 [facility] Comment on above: Result Comment: Hemo lysis present, Results??could be affected. ?? Performed By: #### L 100.0500, L500.2500 #### [facility] [address] [place], [address] Sodium [Moles/Vol] 135 mmol/L Normal 133-145 [facility] Comment on above: Performed By: #### L 100.0500, L500.2500 #### [facility] [address] [place], [address] Urea nitrogen [Mass/Vol] 9 mg/dL Normal 4-19 [facility] Comment on above: Performed By: #### L 100.0500, L500.2500 #### [facility] [address] [place], [address] CBC-Complete Blood Cnt No Di ffon 04-24-2025 Erythrocyte distribution width (RBC) [Ratio] 12.7 % Normal 11.6-14.6 [facility] Comment on above: Performed By: #### L 100.0500, L500.2500 #### [facility] [address] [place], [address] Hematocrit (Bld) [Volume fraction] 42.5 % Normal 40-54 [facility] Comment on above: Performed By: #### L 100.0500, L500.2500 #### [facility] [address] [place], [address] Hemoglobin (Bld) [Mass/Vol] 14.5 g/dL Normal 13.0-16.5 [facility] Comment on above: Performed By: #### L 100.0500, L500.2500 #### [facility] [address] [place], [address] MCH (RBC) [Entitic mass] 28.9 pg Normal 27.0-32.0 [facility] Comment on above: Performed By: #### L 100.0500, L500.2500 #### [facility] [address] [place], [address] MCHC (RBC) [Mass/Vol] 34.1 g/dL Normal 32-36 [facility] Comment on above: Performed By: #### L 100.0500, L500.2500 #### [facility] [address] [place], [address] MCV (RBC) [Entitic vol] 84.7 fL Normal 80-94 [facility] Comment on above: Performed By: #### L 100.0500, L500.2500 #### [facility] [address] [place], [address] Platelet mean volume (Bld) [Entitic vol] 9.4 fL Normal 6.2-12.0 [facility] Comment on above: Performed By: #### L 100.0500, L500.2500 #### [facility] [address] [place], [address] Platelets (Bld) [#/Vol] 200 10*3/uL Normal 150-450 [facility] Comment on above: Performed By: #### L 100.0500, L500.2500 #### [facility] [address] [place], [address] RBC (Bld) [#/Vol] 5.02 10*6/uL Normal 4.6-6.2 [facility] Comment on above: Performed By: #### L 100.0500, L500.2500 #### [facility] [address] [place], [address] RDW SD 38.6 fl Normal 35.1-43.9 [facility] Comment on above: Performed By: #### L 100.0500, L500.2500 #### [facility] [address] [place], [address] WBC (Bld) [#/Vol] 6.0 10*3/uL Normal 4.4-11.0 [facility] Comment on above: Performed By: #### L 100.0500, L500.2500 #### [facility] [address] [place], [address] Carbon dioxide, total [Moles /volume] in Central venous bloodOrdered By: Nkechi Islas on 04-24-2025 CO2 [Moles/Vol] 21.4 mmol/L 21.0-32.0 [facility] Chloride assayOrdered By: Cody Islas on 04-24-2025 Chloride [Moles/Vol] 102 mmol/L 98-108 [facility] Emergency Department Summary on 04-24-2025 Emergency Department Summary [facility] Medical Records Department [address] [facility] [place] [address] Emergency Department Summary 04/24/25 MR#: [id number] Acct: [id number] Name: LAYNE BUSH Rep #: [id number] : 1990 34 From: Nkechi Islas DO PCP: Care Physician,No Primary Status:REG ER Location: ED HPI History of Present Illness Chief Complaint: Cellulitis Informant: patient Narrative Narrative: Patient is a 34-year-old [employer] male with history of chronic swelling of his left lower extremity and possible phlebitis of the left [...] associated fever. States he had a fever of 101.8 this morning at home. He did take [...] breath. States he has some mild nausea but denies any vomiting. No other complaints or concerns reported at this time denies any known history of diabetes. PFSH PFSH Medical History no medical history Home Medications ???Medication ???Instructions ???Recorded ???Last Taken ???Type cefpodoxime 200 mg tablet 200 mg PO Q12H #20 tabs 04/24/25 U nknown Rx Allergy/AdvReac Type Severity Reaction Status Date [...] sepsis, cellulitis and DVT. Compartments are soft. There is no crepitus. There is no rapid progression [...] he states that he feels comfortable going home to be treated outpatient with antibiotics. Will start [...] New cefpodoxime 200 mg tablet 200 mg (more content not included)... Normal [facility] Erythrocyte distribution wid th ratioOrdered By: Nkechi Islas on 04-24-2025 Erythrocyte distribution width (RBC) [Ratio] 12.7 % 11.6-14.6 [facility] Erythrocyte distribution wid th standard deviationOrdered By: Nkechi Islas on 04-24-2025 Erythrocyte distribution width (RBC) [Ratio] 38.6 fl 35.1-43.9 [facility] Glomerular filtration rate ( GFR) estimation/1.73 sq m using serum, plasma, or whole bOrdered By: Nkechi Islas on 04-24-2025 GFR/1.73 sq M.predicted among non-blacks MDRD (S/P/Bld) [Vol rate/Area] 121 mL/min/{1.73_m2} >60 [facility] Comment on above: mL/min/1.73m2 CKD-EP I Creatinine Equation (2020) Hematocrit Auto (Bld) [Volum e fraction]Ordered By: Nkechi Islas on 04-24-2025 Hematocrit (Bld) [Volume fraction] 42.5 % 40-54 [facility] Hemoglobin measurementOrdere d By: Nkechi Islas on 04-24-2025 Hemoglobin (Bld) [Mass/Vol] 14.5 g/dL 13.0-16.5 [facility] Lactic Acidon 04-24-2025 Lactate [Moles/Vol] mmol/L Normal 0.0-2.0 [facility] Comment on above: Order Comment: FRANSICO Borges. PREVIOUS SPECIMEN REJECTED DUE TO HEMOLYSIS. 04/24/25 1133 Bulmaro Brand. Y Performed By: #### L 503.6005 #### [facility] Laboratory [address] [place] [address]. [place], [address] Lactic acid measurementOrder ed By: Nkechi Islas on 04-24-2025 Lactate [Moles/Vol] mmol/L 0.0-2.0 [facility] MCV (mean corpuscular volume ) determinationOrdered By: Nkechi Islas on 04-24-2025 MCV (RBC) [Entitic vol] 84.7 fL 80-94 [facility] Mean corpuscular hemoglobin (MCH) determinationOrdered By: Nkechi Islas on 04-24-2025 MCH (RBC) [Entitic mass] 28.9 pg 27.0-32.0 [facility] Mean corpuscular hemoglobin concentration (MCHC) determinationOrdered By: Nkechi Islas on 04-24-2025 MCHC (RBC) [Mass/Vol] 34.1 g/dL 32-36 [facility] Mean platelet volume determi nationOrdered By: Nkechi Islas on 04-24-2025 Platelet mean volume (Bld) [Entitic vol] 9.4 fL 6.2-12.0 [facility] Platelet countOrdered By: Cody Islas on 04-24-2025 Platelets (Bld) [#/Vol] 200 10*3/uL 150-450 [facility] Potassium measurement (mass/ volume)Ordered By: Nkechi Islas on 04-24-2025 Potassium (Unsp spec) [Mass/Vol] 4.1 mmol/L 3.3-5.1 [facility] Comment on above: Hemolysis present, R esults could be affected. RBC Auto (Bld) [#/Vol]Ordere d By: Nkechi Islas on 04-24-2025 RBC (Bld) [#/Vol] 5.02 10*6/uL 4.6-6.2 [facility] Serum creatinine measurement (mass/volume)Ordered By: Nkechi Islas on 04-24-2025 Creatinine [Mass/Vol] 0.73 mg/dL 0.70-1.20 [facility] Serum glucose measurement (m ass/volume)Ordered By: Nkechi Islas on 04-24-2025 Glucose [Mass/Vol] 117 mg/dL High 70-99 [facility] Serum or plasma calcium katy urement (mass/volume)Ordered By: Nkechi Islas on 04-24-2025 Calcium [Mass/Vol] 8.6 mg/dL 7.6-11.0 [facility] Serum or plasma urea nitroge n measurement (mass/volume)Ordered By: Nkechi Islas on 04-24-2025 Urea nitrogen [Mass/Vol] 9 mg/dL 4-19 [facility] Sodium levelOrdered By: Leni Islas on 04-24-2025 Sodium [Moles/Vol] 135 mmol/L 133-145 [facility] Venous Duplex US, Unilateral on 04-24-2025 Venous Duplex US, Unilateral [facility] [address] [place] [address] Venous Duplex US, Unilateral 04/24/25 1122 MR#: [id number] Acct: [id number] Name: LAYNE BUSH Rep #: [id number] : 1990 34 From: Gregg Montemayor MD Attending Dr: Status: DEP ER Ordering Dr: Nkechi Islas DO Date: 04/24/25 Location: ED Sex: M C Admitted: Reason For Study Reason For Study: LLE Swelling RIGHT LEFT CFV is compressible, spontaneous, phasic, competent GSV is normal. and demonstrates normal augmentation. CFV is compressible, spontaneous, phasic, competent, Rt SFJ measures 2.33cm. and demonstrates normal augmentation. Procedure FV is compressible, spontaneous, phasic, competent This is a venous duplex using B-mode, color flow and and demonstrates normal augmentation. spectral Doppler. POP V is compressible, phasic, and INCOMPETENT for Exam performed portable in ED. greater than 1.0 second. A preliminary report was called and/or faxed to [facility]/P Trunk is compressible. Janel. PTV is compressible. LT PerV is compressible. Lt calf varicosity is partially compressible with bright intraluminal echoes consistent with chronic SVT Lt PopV measures 2.07cm x 2.54cm. 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 Deep veins of the left lower extremity are patent and compressible segmentally. There is no evidence of left lower extremity deep vein thrombosis. The left great saphenous vein appears patent and compressible segmentally. Left popliteal vein positive for reflux, dilated to 2.54 cm Ordering Physician: Nkechi Islas Performed By: Lindsay Murphy, PHUONG, RVT 04/27/25 5293 Date Gregg Montemayor MD CC: Dr. Nkechi Islas DO; No Primary Care Physician Date Dictated: 04/24/25 1122 Date Transcribed: 06/23/25 1643 Electric[employer]: Signed Normal [facility] White blood cell (WBC) count Ordered By: Nkechi Islas on 04-24-2025 WBC (Bld) [#/Vol] 6.0 10*3/uL 4.4-11.0 [facility] 12 Lead EKGon 10-27-2024 12 Lead EKG [facility] Cardiovascular Services [address] [place] [address] 12 Lead EKG 10/27/24 1014 MR#: [id number] Acct: [id number] Name: LAYNE BUSH Rep #: [id number] : 1990 33 From: Pete Angel MD [...] Normal sinus rhythm Normal ECG Confirmed by JANEL NUÑEZ, PETE ([id number]), acquisitions editor EVGENY DOWNING ([id number]) on 10/30/2024 2:21:42 PM Referred By: CARROL/JW Confirmed By: PETE ANGEL MD 10/30/24 1421 Date Pete Angel MD CC: Dr. Jono Johnson MD; No Primary Care Physician Signed Normal [facility] Basic Metabolic Profile (BMP )on 10-27-2024 BUN/CRE 15.2 RATIO Normal 08-24 [facility] Comment on above: Order Comment: 6REDR AW. PREVIOUS SPECIMEN REJECTED DUE TO HEMOLYSIS. 10/27/24 1105 1 Performed By: #### L 500.2500, L100.0100, L501.4020 #### [facility] [address] [place], [address] CA,Total 8.3 mg/dL Low 8.5-10.1 [facility] Comment on above: Order Comment: 6REDR AW. PREVIOUS SPECIMEN REJECTED DUE TO HEMOLYSIS. 10/27/241104 1 Performed By: #### L 500.2500, L100.0100, L501.4020 #### [facility] [address] [place], [address] Chloride [Moles/Vol] 108 mmol/L High 98-107 [facility] Comment on above: Order Comment: 6REDR AW. PREVIOUS SPECIMEN REJECTED DUE TO HEMOLYSIS. 10/27/241104 1 Performed By: #### L 500.2500, L100.0100, L501.4020 #### [facility] [address] [place], [address] CO2 [Moles/Vol] 27.0 mmol/L Normal 21.0-32.0 [facility] Comment on above: Order Comment: 6REDR AW. PREVIOUS SPECIMEN REJECTED DUE TO HEMOLYSIS. 10/27/241104 1 Performed By: #### L 500.2500, L100.0100, L501.4020 #### [facility] [address] [place], [address] Creatinine [Mass/Vol] 0.66 mg/dL Low 0.70-1.30 [facility] Comment on above: Order Comment: 6REDR AW. PREVIOUS SPECIMEN REJECTED DUE TO HEMOLYSIS. 10/27/241104 11 Result Comment: The validity of the calculated GFR GFRAA in patients over 70 years has not been determined. Clinical correlation is essential. Performed By: #### L 500.2500, L100.0100, L501.4020 #### [facility] [address] [place], [address] ECRCL 230.47 ml/min Normal [facility] Comment on above: Order Comment: 6REDR AW. PREVIOUS SPECIMEN REJECTED DUE TO HEMOLYSIS. 10/27/241104 1 Performed By: #### L 500.2500, L100.0100, L501.4020 #### [facility] [address] [place], [address] EST GFR - AA 178 mL/min Normal >60 [facility] Comment on above: Order Comment: 6REDR AW. PREVIOUS SPECIMEN REJECTED DUE TO HEMOLYSIS. 10/27/241104 1 Result Comment: Afri can Greek GFR Calc Performed By: #### L 500.2500, L100.0100, L501.4020 #### [facility] [address] [place], [address] GAP 5 Normal 5-15 [facility] Comment on above: Order Comment: 6REDR AW. PREVIOUS SPECIMEN REJECTED DUE TO HEMOLYSIS. 10/27/241104 1 Performed By: #### L 500.2500, L100.0100, L501.4020 #### [facility] [address] [place], [address] GFR/1.73 sq M.predicted among non-blacks MDRD (S/P/Bld) [Vol rate/Area] 147 mL/min/{1.73_m2} Normal >60 [facility] Comment on above: Order Comment: 6REDR AW. PREVIOUS SPECIMEN REJECTED DUE TO HEMOLYSIS. 10/27/241104 1 Result Comment: Non- GFR Calc Performed By: #### L 500.2500, L100.0100, L501.4020 #### [facility] [address] [place], [address] Glucose [Mass/Vol] 98 mg/dL Normal 74-106 [facility] Comment on above: Order Comment: 6REDR AW. PREVIOUS SPECIMEN REJECTED DUE TO HEMOLYSIS. 10/27/241104 1 Performed By: #### L 500.2500, L100.0100, L501.4020 #### [facility] [address] [place], [address] Potassium [Moles/Vol] 3.9 mmol/L Normal 3.5-5.1 [facility] Comment on above: Order Comment: 6REDR AW. PREVIOUS SPECIMEN REJECTED DUE TO HEMOLYSIS. 10/27/245 1 Performed By: #### L 500.2500, L100.0100, L501.4020 #### [facility] [address] [place], [address] Sodium [Moles/Vol] 140 mmol/L Normal 136-145 [facility] Comment on above: Order Comment: 6REDR AW. PREVIOUS SPECIMEN REJECTED DUE TO HEMOLYSIS. 10/27/241104 1 Performed By: #### L 500.2500, L100.0100, L501.4020 #### [facility] [address] [place], [address] Urea nitrogen [Mass/Vol] 10 mg/dL Normal 7-18 [facility] Comment on above: Order Comment: 6REDR AW. PREVIOUS SPECIMEN REJECTED DUE TO HEMOLYSIS. 10/27/241104 1 Performed By: #### L 500.2500, L100.0100, L501.4020 #### [facility] [address] [place], [address] BUN Normal 7-18 [facility] Comment on above: Order Comment: 'TROP ' Serial specimen #1, #2 or #3: 1 Result Comment: This specimen has been REJECTED due to Laboratory criteria: Clotted/HEMOLYSIS. [facility] has been notified of need of recollection. 10/27/24 110 Marianna Clapper Performed By: #### L 500.2500, L100.0100 #### [facility] [address] [place], [address] BUN/CRE Normal 10-20 [facility] Comment on above: Order Comment: 'TROP ' Serial specimen #1, #2 or #3: 1 Result Comment: This specimen has been REJECTED due to Laboratory criteria: Clotted/HEMOLYSIS. [facility] has been notified of need of recollection. 10/27/241102 Marianna Clapper Performed By: #### L 500.2500, L100.0100 #### [facility] [address] [place], [address] CA,Total Normal 8.5-10.1 [facility] Comment on above: Order Comment: 'TROP ' Serial specimen #1, #2 or #3: 1 Result Comment: This specimen has been REJECTED due to Laboratory criteria: Clotted/HEMOLYSIS. [facility] has been notified of need of recollection. 10/27/24 1103 Marianna Clapper Performed By: #### L 500.2500, L100.0100 #### [facility] [address] [place], [address] CL Normal 98-107 [facility] Comment on above: Order Comment: 'TROP ' Serial specimen #1, #2 or #3: 1 Result Comment: This specimen has been REJECTED due to Laboratory criteria: Clotted/HEMOLYSIS. [facility] has been notified of need of recollection. 10/27/24 1103 Marianna Clapper Performed By: #### L 500.2500, L100.0100 #### [facility] [address] [place], [address] CO2 Normal 21.0-32.0 [facility] Comment on above: Order Comment: 'TROP ' Serial specimen #1, #2 or #3: 1 Result Comment: This specimen has been REJECTED due to Laboratory criteria: Clotted/HEMOLYSIS. [facility] has been notified of need of recollection. 10/27/24 1103 Marianna Clapper Performed By: #### L 500.2500, L100.0100 #### [facility] [address] [place], [address] CREAT,SERUM Normal 0.70-1.30 [facility] Comment on above: Order Comment: 'TROP ' Serial specimen #1, #2 or #3: 1 Result Comment: This specimen has been REJECTED due to Laboratory criteria: Clotted/HEMOLYSIS. [facility] has been notified of need of recollection. 10/27/24 1103 Marianna Clapper Performed By: #### L 500.2500, L100.0100 #### [facility] [address] [place], [address] EST GFR Normal >60 [facility] Comment on above: Order Comment: 'TROP ' Serial specimen #1, #2 or #3: 1 Result Comment: This specimen has been REJECTED due to Laboratory criteria: Clotted/HEMOLYSIS. [facility] has been notified of need of recollection. 10/27/24 1103 Marianna Clapper Performed By: #### L 500.2500, L100.0100 #### [facility] [address] [place], [address] EST GFR - AA Normal >60 [facility] Comment on above: Order Comment: 'TROP ' Serial specimen #1, #2 or #3: 1 Result Comment: This specimen has been REJECTED due to Laboratory criteria: Clotted/HEMOLYSIS. [facility] has been notified of need of recollection. 10/27/24 1103 Marianna Clapper Performed By: #### L 500.2500, L100.0100 #### [facility] [address] [place], [address] GAP Normal 5-15 [facility] Comment on above: Order Comment: 'TROP ' Serial specimen #1, #2 or #3: 1 Result Comment: This specimen has been REJECTED due to Laboratory criteria: Clotted/HEMOLYSIS. [facility] has been notified of need of recollection. 10/27/24 1103 Marianna Clapper Performed By: #### L 500.2500, L100.0100 #### [facility] [address] [place], [address] GLU Normal 74-106 [facility] Comment on above: Order Comment: 'TROP ' Serial specimen #1, #2 or #3: 1 Result Comment: This specimen has been REJECTED due to Laboratory criteria: Clotted/HEMOLYSIS. [facility] has been notified of need of recollection. 10/27/24 1103 Marianna Clapper Performed By: #### L 500.2500, L100.0100 #### [facility] [address] [place], [address] Potassium Normal 3.5-5.1 [facility] Comment on above: Order Comment: 'TROP ' Serial specimen #1, #2 or #3: 1 Result Comment: This specimen has been REJECTED due to Laboratory criteria: Clotted/HEMOLYSIS. [facility] has been notified of need of recollection. 10/27/241102 Marianna Clapper Performed By: #### L 500.2500, L100.0100 #### [facility] [address] [place], [address] Basic Metabolic Profile (BMP) Normal 136-145 [facility] Comment on above: Order Comment: 'TROP ' Serial specimen #1, #2 or #3: 1 Result Comment: This specimen has been REJECTED due to Laboratory criteria: Clotted/HEMOLYSIS. [facility] has been notified of need of recollection. 10/27/241102 Marianna Clapper Performed By: #### L 500.2500, L100.0100 #### [facility] [address] [place], [address] CBC W/Diff, Automatedon 12- Absolute Lymph 2.01 X10 3/uL Normal 0.83-4.51 [facility] Comment on above: Order Comment: REDRA W. PREVIOUS SPECIMEN REJECTED DUE TO CLOTTED. 10/27/245 Performed By: #### L 500.2500, L100.0100, L501.4020 #### [facility] [address] [place], [address] Absolute Neut 3.5 X10 3/uL Normal 2.0-7.7 [facility] Comment on above: Order Comment: REDRA W. PREVIOUS SPECIMEN REJECTED DUE TO CLOTTED. 10/27/245 Performed By: #### L 500.2500, L100.0100, L501.4020 #### [facility] [address] [place], [address] Basophils/100 WBC (Bld) 0.9 % Normal 0-1 [facility] Comment on above: Order Comment: REDRA W. PREVIOUS SPECIMEN REJECTED DUE TO CLOTTED. 10/27/24 1105 Performed By: #### L 500.2500, L100.0100, L501.4020 #### [facility] [address] [place], [address] Eosinophils/100 WBC (Bld) 3.5 % Normal 0-5 [facility] Comment on above: Order Comment: REDRA W. PREVIOUS SPECIMEN REJECTED DUE TO CLOTTED. 10/27/24 1105 Performed By: #### L 500.2500, L100.0100, L501.4020 #### [facility] [address] [place], [address] Erythrocyte distribution width (RBC) [Ratio] 12.2 % Normal 11.6-14.6 [facility] Comment on above: Order Comment: REDRA W. PREVIOUS SPECIMEN REJECTED DUE TO CLOTTED. 10/27/24 1105 Performed By: #### L 500.2500, L100.0100, L501.4020 #### [facility] [address] [place], [address] Hematocrit (Bld) [Volume fraction] 39.5 % Low 40-54 [facility] Comment on above: Order Comment: REDRA W. PREVIOUS SPECIMEN REJECTED DUE TO CLOTTED. 10/27/24 1105 Performed By: #### L 500.2500, L100.0100, L501.4020 #### [facility] [address] [place], [address] Hemoglobin (Bld) [Mass/Vol] 13.5 g/dL Normal 13.0-16.5 [facility] Comment on above: Order Comment: REDRA W. PREVIOUS SPECIMEN REJECTED DUE TO CLOTTED. 10/27/24 1105 Performed By: #### L 500.2500, L100.0100, L501.4020 #### [facility] [address] [place], [address] IG% 0.300 Normal 0.0-0.9 [facility] Comment on above: Order Comment: REDRA W. PREVIOUS SPECIMEN REJECTED DUE TO CLOTTED. 10/27/241104 Result Comment: IG% - Immature Granulocytes (promyelocytes, myelocytes and metamyelocytes) > 1% indicates that a LEFT SHIFT is Present. Performed By: #### L 500.2500, L100.0100, L501.4020 #### [facility] [address] [place], [address] Lymphocytes/100 WBC (Bld) 30.8 % Normal 19-41 [facility] Comment on above: Order Comment: REDRA W. PREVIOUS SPECIMEN REJECTED DUE TO CLOTTED. 10/27/24 1105 Performed By: #### L 500.2500, L100.0100, L501.4020 #### [facility] [address] [place], [address] MCH (RBC) [Entitic mass] 29.8 pg Normal 27.0-32.0 [facility] Comment on above: Order Comment: REDRA W. PREVIOUS SPECIMEN REJECTED DUE TO CLOTTED. 10/27/24 1105 Performed By: #### L 500.2500, L100.0100, L501.4020 #### [facility] [address] [place], [address] MCHC (RBC) [Mass/Vol] 34.2 g/dL Normal 32-36 [facility] Comment on above: Order Comment: REDRA W. PREVIOUS SPECIMEN REJECTED DUE TO CLOTTED. 10/27/24 1105 Performed By: #### L 500.2500, L100.0100, L501.4020 #### [facility] [address] [place], [address] MCV (RBC) [Entitic vol] 87.2 fL Normal 80-94 [facility] Comment on above: Order Comment: REDRA W. PREVIOUS SPECIMEN REJECTED DUE TO CLOTTED. 10/27/24 1105 Performed By: #### L 500.2500, L100.0100, L501.4020 #### [facility] [address] [place], [address] Monocytes/100 WBC (Bld) 10.9 % High 0-10 [facility] Comment on above: Order Comment: REDRA W. PREVIOUS SPECIMEN REJECTED DUE TO CLOTTED. 10/27/24 1105 Performed By: #### L 500.2500, L100.0100, L501.4020 #### [facility] [address] [place], [address] Neutrophils/100 WBC (Bld) 53.6 % Normal 47-70 [facility] Comment on above: Order Comment: REDRA W. PREVIOUS SPECIMEN REJECTED DUE TO CLOTTED. 10/27/245 Performed By: #### L 500.2500, L100.0100, L501.4020 #### [facility] [address] [place], [address] Nucleated RBC (Bld) [#/Vol] 0 10*3/uL Normal 0-5 [facility] Comment on above: Order Comment: REDRA W. PREVIOUS SPECIMEN REJECTED DUE TO CLOTTED. 10/27/245 Performed By: #### L 500.2500, L100.0100, L501.4020 #### [facility] [address] [place], [address] Platelet mean volume (Bld) [Entitic vol] 9.1 fL Normal 6.2-12.0 [facility] Comment on above: Order Comment: REDRA W. PREVIOUS SPECIMEN REJECTED DUE TO CLOTTED. 10/27/24 1105 Performed By: #### L 500.2500, L100.0100, L501.4020 #### [facility] [address] [place], [address] Platelets (Bld) [#/Vol] 220 10*3/uL Normal 150-450 [facility] Comment on above: Order Comment: REDRA W. PREVIOUS SPECIMEN REJECTED DUE TO CLOTTED. 10/27/24 1105 Performed By: #### L 500.2500, L100.0100, L501.4020 #### [facility] [address] [place], [address] RBC (Bld) [#/Vol] 4.53 10*6/uL Low 4.6-6.2 [facility] Comment on above: Order Comment: REDRA W. PREVIOUS SPECIMEN REJECTED DUE TO CLOTTED. 10/27/24 1105 Performed By: #### L 500.2500, L100.0100, L501.4020 #### [facility] [address] [place], [address] RDW SD 38.9 fl Normal 35.1-43.9 [facility] Comment on above: Order Comment: REDRA W. PREVIOUS SPECIMEN REJECTED DUE TO CLOTTED. 10/27/24 1105 Performed By: #### L 500.2500, L100.0100, L501.4020 #### [facility] [address] [place], [address] WBC (Bld) [#/Vol] 6.5 10*3/uL Normal 4.4-11.0 [facility] Comment on above: Order Comment: REDRA W. PREVIOUS SPECIMEN REJECTED DUE TO CLOTTED. 10/27/24 1105 Performed By: #### L 500.2500, L100.0100, L501.4020 #### [facility] [address] [place], [address] Absolute Neut Normal 2.0-7.7 [facility] Comment on above: Result Comment: This specimen has been REJECTED due to Laboratory criteria: Clotted/HEMOLYSIS. [facility] has been notified of need of recollection. 10/27/24 1103 Marianna Ann Performed By: #### L 500.2500, L100.0100 #### [facility] [address] [place], [address] HCT Normal 40-54 [facility] Comment on above: Result Comment: This specimen has been REJECTED due to Laboratory criteria: Clotted/HEMOLYSIS. [facility] has been notified of need of recollection. 10/27/24 1103 Marianna Clapper Performed By: #### L 500.2500, L100.0100 #### [facility] [address] [place], [address] HGB Normal 13.0-16.5 [facility] Comment on above: Result Comment: This specimen has been REJECTED due to Laboratory criteria: Clotted/HEMOLYSIS. [facility] has been notified of need of recollection. 10/27/24 1103 Marianna Clapper Performed By: #### L 500.2500, L100.0100 #### [facility] [address] [place], [address] MCH Normal 27.0-32.0 [facility] Comment on above: Result Comment: This specimen has been REJECTED due to Laboratory criteria: Clotted/HEMOLYSIS. [facility] has been notified of need of recollection. 10/27/24 1103 Marianna Clapper Performed By: #### L 500.2500, L100.0100 #### [facility] [address] [place], [address] MCHC Normal 32-36 [facility] Comment on above: Result Comment: This specimen has been REJECTED due to Laboratory criteria: Clotted/HEMOLYSIS. [facility] has been notified of need of recollection. 10/27/24 1103 Marianna Clapper Performed By: #### L 500.2500, L100.0100 #### [facility] [address] [place], [address] MCV Normal 80-94 [facility] Comment on above: Result Comment: This specimen has been REJECTED due to Laboratory criteria: Clotted/HEMOLYSIS. [facility] has been notified of need of recollection. 10/27/24 1103 Marianna Clapper Performed By: #### L 500.2500, L100.0100 #### [facility] [address] [place], [address] NEUT% Normal 47-70 [facility] Comment on above: Result Comment: This specimen has been REJECTED due to Laboratory criteria: Clotted/HEMOLYSIS. [facility] has been notified of need of recollection. 10/27/24 1103 Marianna Clapper Performed By: #### L 500.2500, L100.0100 #### [facility] [address] [place], [address] PLT Normal 150-450 [facility] Comment on above: Result Comment: This specimen has been REJECTED due to Laboratory criteria: Clotted/HEMOLYSIS. [facility] has been notified of need of recollection. 10/27/24 1103 Marianna Clapper Performed By: #### L 500.2500, L100.0100 #### [facility] [address] [place], [address] RBC Normal 4.6-6.2 [facility] Comment on above: Result Comment: This specimen has been REJECTED due to Laboratory criteria: Clotted/HEMOLYSIS. [facility] has been notified of need of recollection. 10/27/24 1103 Marianna Clapper Performed By: #### L 500.2500, L100.0100 #### [facility] [address] [place], [address] RDW CV Normal 11.6-14.6 [facility] Comment on above: Result Comment: This specimen has been REJECTED due to Laboratory criteria: Clotted/HEMOLYSIS. [facility] has been notified of need of recollection. 10/27/24 1103 Marianna Clapper Performed By: #### L 500.2500, L100.0100 #### [facility] [address] [place], [address] RDW SD Normal 35.1-43.9 [facility] Comment on above: Result Comment: This specimen has been REJECTED due to Laboratory criteria: Clotted/HEMOLYSIS. [facility] has been notified of need of recollection. 10/27/24 1103 Marianna Clapper Performed By: #### L 500.2500, L100.0100 #### [facility] [address] [place], [address] WBC Normal 4.4-11.0 [facility] Comment on above: Result Comment: This specimen has been REJECTED due to Laboratory criteria: Clotted/HEMOLYSIS. [facility] has been notified of need of recollection. 10/27/24 1103 Marianna Clapper Performed By: #### L 500.2500, L100.0100 #### [facility] [address] [place], [address] CTA Chest W/WO Contraston CTA Chest W/WO Contrast [facility] Imaging Services [address] [place] [address] CTA Chest W/WO Contrast MR#: [id number] Acct: [id number] Name: LAYNE BUSH Cindy Rep #: [id number] : 1990 M 33 From: Erich Gann MD PCP: Care Physician,No Primary Status: REG ER Study: CTA Chest W/WO Contrast Date of Exam: 10/27/24 Exam# [id number] Ordering Dr: Jono Johnson MD [id number] STUDY: CTA CHEST REASON FOR EXAM: Male, [...] were used for this CT. COMPARISON: None. FINDINGS: Normal enhancement of the main pulmonary [...] Normal osseous structures. Normal visualized upper abdomen. CT/CTA Chest W/WO Contrast IMPRESSION: Normal CTA chest examination, without a demonstrated pulmonary embolism or arterial dissection. Electronically Signed: Erich Gann MD at 12:08 EST , CC: Dr. Jono Johnson MD; No Primary Care Physician Electrician Supervisor Airplane: Signed Normal [facility] Emergency Department Summary on 10-27-2024 Emergency Department Summary [facility] Medical Records Department [address] [place] [address] Emergency Department Summary 10/27/24 MR#: [id number] Acct: [id number] Name: LAYNE BUSH Rep #: [id number] : 1990 33 From: Jono Johnson MD PCP: Care Physician,No Primary Status:REG ER Location: ED HPI History of Present Illness Chief Complaint: Chest Pain Informant: patient Onset/Context/Timing Onset: Days Activity at onset: gradual Timing: Intermittent Quality: Positive for Sharp Location: Right Chest and Left Chest Current Severity: Mild Maximum Severity: Mild Worsened By: Breathing Relieved By: Nothing Associated Symptoms: Positive for Dyspnea; Negative for Nausea, Vomiting, Diaphoresis, Cough, Fever, Lightheadedness, Acid Reflux or Palpitations Narrative Narrative: 33-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 Prior Similar Symptoms: No Recent Illness/Hospitalizati on: No CVD Risk Factors: Negative for Hypertension [...] pain; Denies palpitations or racing heartbeat Respiratory/Chest Respiratory/Chest: Reports dyspnea and dyspnea on exertion Gastrointestinal Gastrointestinal: Denies abdominal pain Genitourinary Genitourinary ED: Denies dysuria or hematuria Musculoskeletal Musculoskeletal: Denies arthralgias Integumentary Denies abscess Neurologic Neurologic: Denies headache(s) Psychiatric Psychiatric: Denies anxiety or depression Endocrine Endocrinology: Denies cold intolerance Hematologic/Lymphatic Hematologic/Lymphatic : Denies easy bleeding or easy bruising Allergic/Immunologic Allergic/Immunologic ED: Denies mouth swelling, tongue swelling or [...] greater than right Normal dorsi plantarflexion. 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 Back nontender. Neurologically [...] for rales, (more content not included)... Normal [facility] L501.4020on 10-27-2024 TROPONIN-I HS 4 pg/mL Normal 3.0-78.0 [facility] Comment on above: Order Comment: 6REDR AW. PREVIOUS SPECIMEN REJECTED DUE TO HEMOLYSIS. 10/27/24 1105 1 Result Comment: Plea se Note: New Test Units and Gender Specific Reference Ranges. For more information see Policy Stat Procedure Tracy High Sensitivity Troponin (TNIH) and attachments. Performed By: #### L 500.2500, L100.0100, L501.4020 #### [facility] [address] [place], [address] Venous Duplex US, Unilateral on 10-27-2024 Venous Duplex US, Unilateral [facility] [address] [place] [address] Venous Duplex US, Unilateral 10/27/24 1132 MR#: [id number] Acct: [id number] Name: LAYNE BUSH Rep #: [id number] : 1990 33 From: Gregg Montemayor MD [...] for greater than 1.0 second. 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 Popliteal vein measures approximately 2.43 x [...] Jono Johnson Referring Physician: N/A Performed By: Fortunato Patel, PAMT 10/27/241652 Date Gregg Montemayor MD CC: Dr. Jono Johnson MD; No Primary Care Physician Date Dictated: 10/27/24 1132 Date Transcribed: 10/27/241652 Electrician Supervisor Airplane: Signed Normal [facility] GFR Non- 108 ml/min/1.73sqm Normal [facility] ([place]) Comment on above: Result Comment: GFR Population [...] By: #### G FR, CMP, TSH #### Artur [address] [address] GFR 131 ml/min/1.73sqm Normal [facility] ([place]) Comment on above: Result Comment: GFR Population [...] By: #### G FR, CMP, TSH #### [address] [address] [facility] 09-24-2023 Albumin Level 3.8 G/dL Normal 3.5-5.0 [facility] ([place]) Comment on above: Performed By: #### G FR, CMP, TSH #### Artur [address] [address] Albumin/Globulin [Mass ratio] 1.0 {ratio} Low 1.1-2.5 [facility] ([place]) Comment on above: Performed By: #### G ADRIAN DAMIAN, TSH #### [address] [address] ALP [Catalytic activity/Vol] 130 U/L Normal 40-135 [facility] ([place]) Comment on above: Performed By: #### Ruth DAMIAN CMP, TSH #### [address] [address] ALT [Catalytic activity/Vol] 63 U/L Normal 16-63 [facility] ([place]) Comment on above: Performed By: #### G ADRIAN DAMIAN, TSH #### [address] [address] AST [Catalytic activity/Vol] 37 U/L Normal 10-40 [facility] ([place]) Comment on above: Performed By: #### Ruth DAMIAN CMP, TSH #### [address] [address] Bili Total 0.2 mg/dL Normal 0.2-1.0 [facility] ([place]) Comment on above: Result Comment: Use of this assay is not recommended for patients undergoing treatment with eltrombopag due to the potential for falsely elevated results. Performed By: #### Ruth DAMIAN CMP, TSH #### [address] [address] BUN/Creatinine Ratio 17 ratio Normal 7-27 [facility] ([place]) Comment on above: Performed By: #### G FR CMP, TSH #### [address] [address] Calcium [Mass/Vol] 8.8 mg/dL Normal 8.4-10.2 [facility] ([place]) Comment on above: Performed By: #### Ruth DAMIAN CMP, TSH #### [address] [address] Chloride [Moles/Vol] 103 mmol/L Normal 98-107 [facility] ([place]) Comment on above: Performed By: #### Ruth DAMIAN CMP, TSH #### [address] [address] CO2 [Moles/Vol] 30 mmol/L High 22-29 [facility] ([place]) Comment on above: Performed By: #### Ruth DAMIAN CMP, TSH #### [address] [address] Creatinine [Mass/Vol] 0.82 mg/dL Normal 0.70-1.30 [facility] ([place]) Comment on above: Performed By: #### Ruth DAMIAN CMP, TSH #### [address] [address] Electrolyte Balance 7.0 mEq/L Normal 4.0-15.0 [facility] ([place]) Comment on above: Performed By: #### Ruth DAMIAN CMP, TSH #### [address] [address] Globulin 3.7 G/dL Normal [facility] ([place]) Comment on above: Performed By: #### Ruth DAMIAN CMP, TSH #### [address] [address] Glucose [Mass/Vol] 101 mg/dL Normal 70-105 [facility] ([place]) Comment on above: Performed By: #### Ruth DAMIAN CMP, TSH #### [address] [address] Potassium [Moles/Vol] 4.7 mmol/L Normal 3.5-5.1 [facility] ([place]) Comment on above: Performed By: #### Ruth DAMIAN CMP, TSH #### [address] [address] Sodium [Moles/Vol] 140 mmol/L Normal 136-145 [facility] ([place]) Comment on above: Performed By: #### Ruth DAMIAN CMP, TSH #### [address] [address] Total Protein 7.5 G/dL Normal 6.4-8.2 [facility] ([place]) Comment on above: Performed By: #### Ruth DAMIAN CMP, TSH #### [address] [place], [place] [address] Urea nitrogen [Mass/Vol] 14 mg/dL Normal 7-18 [facility] ([place]) Comment on above: Performed By: #### G FR, CMP, TSH #### [address] [place], [place] [address] LABORATORYOrdered By: SYSTEM SYSTEM on 09-24-2023 Albumin [...] [Mass/Vol] 14 mg/dL Normal 7 - 18 mg/dL AO ADM SS Urea nitrogen/Creatinine [Mass ratio] 17 ratio Normal 7 - 27 ratio AO ADM SS TSHon 09-24-2023 TSH Qn 2.04 m[IU]/L Normal 0.36-3.74 [facility] ([place]) Comment on above: Performed By: #### G FR, CMP, TSH #### [address] [address] Vital Signs Date Time Vital Sign Value Performing Clinician Marlene melendez 05-22-2025 08:53-0400 Body temperature 98 [degF] No Primary Care Physician [facility] 05-22-2025 08:53-0400 Body weight 136.53 kg No Primary Care Physician [facility] 05-22-2025 08:53-0400 Diastolic blood pressure 82 mm[Hg] No Primary Care Physician [facility] 05-22-2025 08:53-0400 Heart rate 74 /min No Primary Care Physician [facility] 05-22-2025 08:53-0400 Respiratory rate 16 /min No Primary Care Physician [facility] 05-22-2025 08:53-0400 SaO2% (BldA) [Mass fraction] 97 % No Primary Care Physician [facility] 05-22-2025 08:53-0400 Systolic blood pressure 117 mm[Hg] No Primary Care Physician [facility] 04-25-2025 15:36-0400 Body temperature 98.1 [degF] No Primary Care Physician [facility] 04-25-2025 15:36-0400 Diastolic blood pressure 84 mm[Hg] No Primary Care Physician [facility] 04-25-2025 15:36-0400 Heart rate 52 /min No Primary Care Physician [facility] 04-25-2025 15:36-0400 Respiratory rate 14 /min No Primary Care Physician [facility] 04-25-2025 15:36-0400 SaO2% (BldA) [Mass fraction] 99 % No Primary Care Physician [facility] 04-25-2025 15:36-0400 Systolic blood pressure 132 mm[Hg] No Primary Care Physician [facility] 04-25-2025 10:57-0400 Body height 182.88 cm No Primary Care Physician [facility] 04-25-2025 10:57-0400 Body mass index (BMI) [Ratio] 40.1 kg/m2 No Primary Care Physician [facility] 04-25-2025 10:57-0400 Body weight 134.4 kg No Primary Care Physician [facility] 04-24-2025 15:02-0400 Body temperature 98.9 [degF] No Primary Care Physician [facility] 04-24-2025 15:02-0400 Diastolic blood pressure 75 mm[Hg] No Primary Care Physician [facility] 04-24-2025 15:02-0400 Heart rate 90 /min No Primary Care Physician [facility] 04-24-2025 15:02-0400 Respiratory rate 18 /min No Primary Care Physician [facility] 04-24-2025 15:02-0400 SaO2% (BldA) [Mass fraction] 97 % No Primary Care Physician [facility] 04-24-2025 15:02-0400 Systolic blood pressure 135 mm[Hg] No Primary Care Physician [facility] 04-24-2025 09:42-0400 Body height 182.88 cm No Primary Care Physician [facility] 04-24-2025 09:42-0400 Body mass index (BMI) [Ratio] 41.3 kg/m2 No Primary Care Physician [facility] 04-24-2025 09:42-0400 Body weight 138.3 kg No Primary Care Physician [facility] Encounters Encounter Date Encounter Type Care Provider Facility Start: 06-08-2025 Non-patient / Non-visit Dr. Gregg anna MD -[facility] Start: 06-08-2025 End: 06-08-2025 ambulatory No Primary Care Physician -Cardiovascular Services Start: 06-08-2025 End: 06-08-2025 Patient encounter procedure Brittany MAC -[facility] Services Work Phone: Start: 06-08-2025 End: 06-08-2025 ambulatory Brittany Bailey Facility:[facility] Start: 05-22-2025 End: 05-22-2025 Patient encounter procedure Brittany MAC -[facility] Work Phone: Start: 05-22-2025 End: 05-22-2025 ambulatory No Primary Care Physician -[facility] Start: 04-25-2025 End: 04-25-2025 Emergency department patient visit No Primary Care Physician -Emergency Department Work Phone: Start: 06-20-2025 ambulatory Gregg Montemayor Facility:[facility] Start: 04-24-2025 Non-patient / Non-visit Dr. Gregg anna MD -[facility] Start: 04-24-2025 End: 04-24-2025 Emergency department patient visit No Primary Care Physician -Emergency Department Work Phone: Start: 10-27-2024 ambulatory Jono Johnson Facility:[facility] Start: 10-27-2024 End: 10-27-2024 Emergency department patient visit [facility] Facility:[facility] Start: 09-24-2023 End: 09-25-2023 ambulatory [employer] Facility:[facility] Start: 09-24-2023 End: 09-24-2023 Patient encounter procedure HANY THOMAS [employer] [facility] Procedures Date Procedure Procedure Detail Performing Clinician Start: 04-25-2025 Estimated creatinine clearance No Primary Care Physician Start: 04-24-2025 Estimated creatinine clearance No Primary Care Physician Plan of Treatment Date Care Activity Detail Author Start: 04-24-[address] [facility] Patient Education [facility] Work Phone: Patient referral [facility] Work Phone: [email or web address] Lower ext remity vessels [facility] Payers Date Payer Category Payer Unknown [id number] 2023 Self-pay 1990 Unknown [id number] 2.16.8 [id number] 1990 Unknown [id number] 2.16.8 [id number] Unknown [id number] 2.16.8 [id number] Unknown [id number] 2.16.8 [id number] Unknown [id number] 2.16.8 [id number] Unknown [id number] 2.16.8 [id number] Unknown [id number] 2.16.8 [id number] Unknown [id number] 2.16.8 [id number] Unknown [id number] 2.16.8 [id number] Unknown [id number] 2.16.8 [id number] Social History Date Type Detail Facility Start: 07-10-2019 End: 04-25-2025 Tobacco smoking status Never smoked tobacco (finding) [facility] Start: 1990 Sex Assigned At Male [facility] Clinical Notes 04-24-2025 to 05-22-2025 Note Date & Type Note Facility 05-22-2025 Evaluation note Diagnosis Onset Date Resolution Lower extremity edema acute May 8:42am Recurrent phlebitis of superficial vein acute May 22, 2025 8:42am Venous insufficiency acute May 22, 2025 8:42am [facility] Work Phone: 1(388) 250-279006-21-2025 Discharge summary [facility] Medical Records Department [address] [place] [id number] Emergency Department Summary 04/25/25 MR#: [id number] Acct: [id number] Name: LAYNE BUSH Rep #:[id number] : 1990 34 From: Rizwan Garces MD PCP: Care Physician,No Primary Status :REG ER Location: ED HPI History of Present Illness Chief Complaint: Nausea/Vomiting Detail of Chief Complaint: Nausea and vomiting, head pain Informant: patient Onset/Context/Timing Onset: Yesterday Context: Sudden Onset Timing: Continuous (Head pain is constant) and Intermittent Quality: Throbbing head pain Location: Occiput and radiates to the forehead Current Severity: Mild Maximum Severity: Moderate Worsened by: Nothing specific Relieved by: nothing Associated Symptoms Associated Symptoms: Thirst, dry mouth and lightheadedness Narrative Narrative: Patient is a 34-year-old male. He was seen yesterday and diagnosed with cellulitis of his distal left anterior leg. He reported headache yesterday. Hewas given Tylenol. On his way home he vomited. Heis vomited 8-9 times since. He now has dry heaves. He does endorse thirst, dry mouth and lightheadedness. She had decreased urine output. He believes the rash is better. thinks itis as red. She does admit that the swelling has gone down and the area of redness is gone down. He denies fever or chills. He denies double vision blurred vision loss of vision. Nose ringing in ears or decreased hearing. He denies cardiac or respiratory symptoms. He has some abdominal discomfort with the vomiting. There is also a rash noted near the umbilicus. It is erythematous. That was notnoted yesterday. Prior similar symptoms: No Recent Illness/Hospitalization: Yes PFSH PFSH Home Medications ?Medication ?Instructions ?Recorded ?Last Taken ?Type ondansetron 4 mg disintegrating 4 mg PO Q8H PRN PRN Na usea #10 tabs 04/25/25 Unknown Rx tablet Allergy/AdvReac Type Severity Reaction Status Date / Time No Known Allergies Allergy Verified 04/25/25 10:58 Social History (Updated 04/25/25 @ 11:[address] Rizwan Garces MD) household members: spouse and children Smoking Status: Never smoker ROS ROS ED Constitutional Constitutional ED: Denies chills, fever(s), subjective or sweats Eyes Eyes: Denies blurry vision, change in vision or diplopia ENT ENT ED: Denies ear pain, rhinorrhea or sore throat Cardiovascular Cardiovascular: Denies chest pain or palpitations Gastrointestinal Gastrointestinal: Reports nausea and vomiting; Denies abdominal pain or diarrhea Genitourinary Genitourinary ED: Reports other Details: HPI narrative Musculoskeletal Musculoskeletal: Denies arthralgias, myalgias or neck pain Integumentary Reports rash Neurologic Neurologic: Reports headache(s) and weakness; Denies paresthesias EXAM Physical Exam Const Vital Signs: 04/25/25 10:57 04/25/25 12:57 04/25/25 14:00 Temperature 98.9 F Temperature Source Temporal Pulse Rate 72 60 57 L Respiratory Rate 14 18 16 Blood Pressure 137/87 H 138/86 H 132/92 H Blood Pressure Mean 103 103 105 Pulse Ox 98 100 98 Oxygen Delivery Method Room Air Room Air Room Air Positive well nourished and well developed Constitutional Narrative: BMI is 40.2. Blood pressure slightly elevated. General Appearance ED: well developed; Negative for pallor HEENT Reports dry mucous membranes HEENT Narrative: Head is atraumatic no cephalic. Ears normal. Nares patent. TMs normal. Posterior pharynx unremarkable. Mouth ED: Yes dry mucous membranes Mouth: dry mucous membranes Eyes PERRL and EOMs intact bilaterally Eyes Narrative: There is no nystagmus. General Eye ED: Negative for pale conjunctiva or scleral icterus Neck no lymphadenopathy, supple and no JVD Resp normal respiratory effort and clear to auscultation bilaterally Cardio regular rate, regular rhythm, S1 normal heart sound, S2 normal heart sound and no murmurs GI normal to inspection, nondistended, normoactive bowel sounds, non-tender, non- distended and no masses; Negative for hepatosplenomegaly GI Narrative: There is a erythematous nonblanching rash noted that is 1 cm x 3 cm on his abdomen. There is no warmth, induration, or any other findings. Palpation: soft Extremity Extremity Narrative: Leg with erythema slight warmth. There is no induration. There is no lymphangitis. There is no neurovasc compromise. Neuro oriented x3 and CN's II-XII intact bilaterally Sensorium / Orientation: alert Psych mental status grossly normal Skin No no rashes or lesions noted and skin turgor normal General Skin Exam: elasticity normal; Negative for jaundice or pallor MDM MDM MDM Narrative Medical decision making narrative: Clinically patient appears dehydrated. 1 L normal saline was ordered. BMP was obtained to assess BUN and creatinine compared to yesterday as well as CO2 aniongap. Patient's headache was treated with ketorolac since his BUN and creatininewere normal yesterday. He received Zofran for his nausea and vomiting. History & Record Review Additional record(s) reviewed:: Prior ED visit and Prior labs Lab Data Attestation: I reviewed the patient's lab results. Lab results narrative: CBC is unremarkable and essentially unchanged from yesterday. Basic metabolic panel is unremarkable. Labs: Laboratory Results - last 24 hr 04/25/25 11:26 WBC 6.6 RBC 5.03 Hgb 14.7 Hct 42.1 MCV 83.7 MCH 29.2 MCHC 34.9 RDW Std Deviation 37.3 RDW Coeff of Meche 12.2 Plt Count 209 MPV 8.9 Immature Gran % (Auto) 0.300 Neut % (Auto) 75.8 H Lymph % (Auto) 14.2 L Alfalfa % (Auto) 9.4 Eos % (Auto) 0.0 Baso % (Auto) 0.3 Absolute Neuts (auto) 5.0 Absolute Lymphs (auto) 0.94 Nucleated RBC % 0 Sodium 136 Potassium 4.1 Chloride 101 Carbon Dioxide 23.6 Anion Gap 12 BUN 11 Creatinine 0.76 Estim Creat Clear Calc 192.50 Est GFR (MDRD) Non-Af 120 BUN/Creatinine Ratio 14.9 Glucose 110 H Calcium 8.7 Treatment and Re-Evaluation :: Patient was reassessed at 1232. He still feels nauseous but has improved. The liter and has essentially infused. He has no urge to urinate. Second liter wasordered. Since he still complain of nausea 5 mg of Reglan was ordered to be administered IV push. Patient was reassessed at 1519. He still has headache. His nausea has improved. He had no vomiting.Plan is to discharge prescription for Zofran. Take Tylenol or ibuprofen for his headache. Discharge Plan Triage Chief Complaint: Nausea/Vomiting ED Provider: Rizwan Garces Dx/Rx/DC Orders Clinical Impression: Nausea & vomiting, Acute dehydration, Cellulitis of left leg without foot, Elevated blood-pressure reading without diagnosis of hypertension, Body mass index (BMI) of 40.0 to 49.9 Instructions: ED Hypertension, To Be Confirmed, ED Vomiting (Adult) Prescriptions: New ondansetron 4 mg tablet,disintegrating 4 mg PO Q8H PRN PRN (Reason: Nausea) Qty: 10 0RF Primary Care Provider: Care Physician,No Primary Referrals: Care Physician,No Primary [Primary Care Provider] - Activity Restrictions/Additional Instructions: 1. You may take either Tylenol or ibuprofen for your headache. 2. Follow-up with your doctor if you do not feel better by Sunday. Print Language: Portuguese Disposition Disposition: Home, Self Care What to do if you have Problems For any increased pain, shortness of breath, bleeding, nausea or vomiting, chestpain, or any unexpected problems, contact your Primary Care Provider. Call [facility] ([phone]) or report tothe closest Emergency Room. Call 911 if necessary. 04/25/25 1524 Cosigner Signature (if applicable): CC: No Primary Care Physician ~ Signed [facility]06-21-2025 Discharge summary Author Rizwan Garces [facility] Note Date/Time April 25, 2025 3:24 pm [facility] Medical Records Department [address] [place] [address] Emergency Department Summary 04/25/25 MR#: [id number] Acct: [id number] Name: LAYNE BUSH Rep #:[id number] : 1990 34 From: Rizwan Garces MD PCP: Care Physician,No Primary Status :REG ER Location: ED HPI History of Present Illness Chief Complaint: Nausea/Vomiting Detail of Chief Complaint: Nausea and vomiting, head pain Informant: patient Onset/Context/Timing Onset: Yesterday Context: Sudden Onset Timing: Continuous (Head pain is constant) and Intermittent Quality: Throbbing head pain Location: Occiput and radiates to the forehead Current Severity: Mild Maximum Severity: Moderate Worsened by: Nothing specific Relieved by: nothing Associated Symptoms Associated Symptoms: Thirst, dry mouth and lightheadedness Narrative Narrative: Patient is a 34-year-old male. He was seen yesterday and diagnosed with cellulitis of his distal left anterior leg. He reported headache yesterday. Hewas given Tylenol. On his way home he vomited. He is vomited 8-9 times since. He now has dry heaves. He does endorse thirst, dry mouth and lightheadedness. She had decreased urine output. He believes the rash is better. thinks itis as red. She does admit that the swelling has gone down and the area of redness is gone down. He denies fever or chills. He denies double vision blurred vision loss of vision. Nose ringing in ears or decreased hearing. He denies cardiac or respiratory symptoms. He has some abdominal discomfort with the vomiting. There is also a rash noted near the umbilicus. It is erythematous. That was not noted yesterday. Prior similar symptoms: No Recent Illness/Hospitalization: Yes PFSH PFSH Home Medications ?Medication ?Instructions ?Recorded ?Last Taken ?Type ondansetron 4 mg disintegrating 4 mg PO Q8H PRN PRN Na usea #10 tabs 04/25/25 Unknown Rx tablet Allergy/AdvReac Type Severity Reaction Status Date / Time No Known Allergies Allergy Verified 04/25/25 10:58 Social History (Updated 04/25/25 @ 11:[address] Rizwan Garces MD) household members: spouse and children Smoking Status: Never smoker ROS ROS ED Constitutional Constitutional ED: Denies chills, fever(s), subjective or sweats Eyes Eyes: Denies blurry vision, change in vision or diplopia ENT ENT ED: Denies ear pain, rhinorrhea or sore throat Cardiovascular Cardiovascular: Denies chest pain or palpitations Gastrointestinal Gastrointestinal: Reports nausea and vomiting; Denies abdominal pain or diarrhea Genitourinary Genitourinary ED: Reports other Details: HPI narrative Musculoskeletal Musculoskeletal: Denies arthralgias, myalgias or neck pain Integumentary Reports rash Neurologic Neurologic: Reports headache(s) and weakness; Denies paresthesias EXAM Physical Exam Const Vital Signs: 04/25/25 10:57 04/25/25 12:57 04/25/25 14:00 Temperature 98.9 F Temperature Source Temporal Pulse Rate 72 60 57 L Respiratory Rate 14 18 16 Blood Pressure 137/87 H 138/86 H 132/92 H Blood Pressure Mean 103 103 105 Pulse Ox 98 100 98 Oxygen Delivery Method Room Air Room Air Room Air Positive well nourished and well developed Constitutional Narrative: BMI is 40.2. Blood pressure slightly elevated. General Appearance ED: well developed; Negative for pallor HEENT Reports dry mucous membranes HEENT Narrative: Head is atraumatic no cephalic. Ears normal. Nares patent. TMs normal. Posterior pharynx unremarkable. Mouth ED: Yes dry mucous membranes Mouth: dry mucous membranes Eyes PERRL and EOMs intact bilaterally Eyes Narrative: There is no nystagmus. General Eye ED: Negative for pale conjunctiva or scleral icterus Neck no lymphadenopathy, supple and no JVD Resp normal respiratory effort and clear to auscultation bilaterally Cardio regular rate, regular rhythm, S1 normal heart sound, S2 normal heart sound and no murmurs GI normal to inspection, nondistended, normoactive bowel sounds, non-tender, non-distended and no masses; Negative for hepatosplenomegaly GI Narrative: There is a erythematous nonblanching rash noted that is 1 cm x 3 cm on his abdomen. There is no warmth, induration, or any other findings. Palpation: soft Extremity Extremity Narrative: Leg with erythema slight warmth. There is no induration. There is no lymphangitis. There is no neurovasc compromise. Neuro oriented x3 and CN's II-XII intact bilaterally Sensorium / Orientation: alert Psych mental status grossly normal Skin No no rashes or lesions noted and skin turgor normal General Skin Exam: elasticity normal; Negative for jaundice or pallor MDM MDM MDM Narrative Medical decision making narrative: Clinically patient appears dehydrated. 1 L normal saline was ordered. BMP was obtained to assess BUN and creatinine compared to yesterday as well as CO2 aniongap. Patient's headache was treated with ketorolac since his BUN and creatininewere normal yesterday. He received Zofran for his nausea and vomiting. History & Record Review Additional record(s) reviewed:: Prior ED visit and Prior labs Lab Data Attestation: I reviewed the patient's lab results. Lab results narrative: CBC is unremarkable and essentially unchanged from yesterday. Basic metabolic panel is unremarkable. Labs: Laboratory Results - last 24 hr 04/25/25 11:26 WBC 6.6 RBC 5.03 Hgb 14.7 Hct 42.1 MCV 83.7 MCH 29.2 MCHC 34.9 RDW Std Deviation 37.3 RDW Coeff of Meche 12.2 Plt Count 209 MPV 8.9 Immature Gran % (Auto) 0.300 Neut % (Auto) 75.8 H Lymph % (Auto) 14.2 L Alfalfa % (Auto) 9.4 Eos % (Auto) 0.0 Baso % (Auto) 0.3 Absolute Neuts (auto) 5.0 Absolute Lymphs (auto) 0.94 Nucleated RBC % 0 Sodium 136 Potassium 4.1 Chloride 101 Carbon Dioxide 23.6 Anion Gap 12 BUN 11 Creatinine 0.76 Estim Creat Clear Calc 192.50 Est GFR (MDRD) Non-Af 120 BUN/Creatinine Ratio 14.9 Glucose 110 H Calcium 8.7 Treatment and Re-Evaluation :: Patient was reassessed at 1232. He still feels nauseous but has improved. The liter and has essentially infused. He has no urge to urinate. Second liter wasordered. Since he still complain of nausea 5 mg of Reglan was ordered to be administered IV push. Patient was reassessed at 1519. He still has headache. His nausea has improved. He had no vomiting. Plan is to discharge prescription for Zofran. Take Tylenol or ibuprofen for his headache. Discharge Plan Triage Chief Complaint: Nausea/Vomiting ED Provider: Rizwan Garces Dx/Rx/DC Orders Clinical Impression: Nausea & vomiting, Acute dehydration, Cellulitis of left leg without foot, Elevated blood-pressure reading without diagnosis of hypertension, Body mass index (BMI) of 40.0 to 49.9 Instructions: ED Hypertension, To Be Confirmed, ED Vomiting (Adult) Prescriptions: New ondansetron 4 mg tablet,disintegrating 4 mg PO Q8H PRN PRN (Reason: Nausea) Qty: 10 0RF Primary Care Provider: Care Physician,No Primary Referrals: Care Physician,No Primary [Primary Care Provider] - Activity Restrictions/Additional Instructions: 1. You may take either Tylenol or ibuprofen for your headache. 2. Follow-up with your doctor if you do not feel better by Sunday. Print Language: Portuguese Disposition Disposition: Home, Self Care What to do if you have Problems For any increased pain, shortness of breath, bleeding, nausea or vomiting, chestpain, or any unexpected problems, contact your Primary Care Provider. Call [facility] ([phone]) or report to the closest Emergency Room. Call 911 if necessary. 04/25/25 1524 <Electronically signed by Rizwan Garces MD> Cosigner Signature (if applicable): CC: No Primary Care Physician ~ Signed [facility] Work Phone: [phone]) 114-229806-20-2025 Discharge summary [facility] Medical Records Department [address] [place] [address] Emergency Department Summary 04/24/25 MR#: [id number] Acct: [id number] Name: RACHELLELAYNE Cindy Rep #:[id number] : 1990 34 From: [facility] We[facility] PCP: Care Physician,No Primary Status :REG ER Location: ED HPI History of Present Illness Chief Complaint: Cellulitis Informant: patient Narrative Narrative: Patient is a 34-year-old Restorationism male with history of chronic swelling of his leftlower extremity andpossible phlebitis of the left lower extremity diagnosed in October 2024. 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 He notes that over the past 2 days he has had increased redness, swelling, discomfort of the left lower leg and associated fever. States he had a fever of101.8 this morning at home. Hedid take Tylenol prior to arrival. He states chronically he has of some's chronic skin changes to the lower leg from an injury 7 years ago and he is always has swelling of the leg compared to the righ t. He states the swelling tends to get better in the morning after he is elevated his leg overnightand worse if he is on it a lot or has a short turnaround from working in the evening to come back to work early in the morning. He denies any shortness of breath. States he has some mild nausea butdenies any vomiting. No other complaints or concerns reported at this time denies any known history ofdiabetes. PFSH PFSH Medical History no medical history [...] DVT. Compartments are soft. Thereis no crepitus. Thereis no rapid progression in the emergency room [...] a fever and is given Tylenol and Zofranfor this. And he states that he feels [...] Physician,No Primary [Primary Care Provider] - Andrez BrownC, RUBBER [employer] AND TUBES SUPERVISOR-C [[facility]] - Activity Restrictions/Additional Instructions: I prescription was sent to [facility] (after further vesication was actually a [facility] as [facility]). He had been given the GoodRx coupon card. The paper does say jennie Ellis but the code is the same regardless of the pharmacy. If your symptoms are worsening especially after 48 hours of antibiotics please return tothe emergency room. Continue take Tylenol at home as needed for pain and fever. Elevate your leg is much as possible. Really try to rest and take it easy overthe next few days. [facility]. Print Language: Portuguese Disposition Disposition: Home, Self Care What to do if you have Problems For any increased pain, shortness of breath, bleeding, nausea or vomiting, chestpain, or any unexpected problems, contact your Primary Care Provider. Call [facility] ([phone]) or report tothe closest Emergency Room. Call 911 if necessary. 04/24/25 1446 Cosigner Signature (if applicable): CC: No Primary Care Physician ~ Signed [facility]06-20-2025 Discharge summary [facility] Note Date/Time April 24, 2025 2:46 pm [facility] Medical Records Department [address] [place] [address] Emergency Department Summary 04/24/25 MR#: [id number] Acct: [id number] Name: LAYNE BUSH Rep #:[id number] : 1990 34 From: Nkechi Weir PCP: Care Physician,No Primary Status :REG ER Location: ED HPI History of Present Illness Chief Complaint: Cellulitis Informant: patient Narrative Narrative: Patient is a 34-year-old Restorationism male with history of chronic swelling of [...] Physician,No Primary [Primary Care Provider] - Andrez Brown, RU[employer] SUPERVISOR-C [[facility]] - Activity Restrictions/Additional Instructions: I prescription was sent to [facility] (after further vesication was [facility] a [facility]). He had been given the GoodRx coupon card. The paper does say giant [place] but the code is the same regardless of the pharmacy. If your symptoms are worsening especially after 48 hours of antibiotics please return tothe emergency room. Continue take Tylenol at home as needed for pain and fever. Elevate your leg is much as possible. Really try to rest and take it easy overthe next few days. Follow-up with both vascular surgery and family medicine. Print Language: Portuguese Disposition Disposition: Home, Self Care What to do if you have Problems For any increased pain, shortness of breath, bleeding, nausea or vomiting, chestpain, or any unexpected problems, contact your Primary Care Provider. Call [facility] ([phone]) or report to the closest Emergency Room. Call 911 if necessary. 04/24/25 1446 <Electronically signed by Nkechi Islas DO> Cosigner Signature (if applicable): CC: No Primary Care Physician ~ Signed [facility] Work Phone: Evaluation + Plan note No data available for this section [facility] Evaluation noteNo assessment information available [facility] Work Phone: Hospital Discharge instructions No data available for this section [facility] Hospital Discharge instructions Additional Instructions I prescription was sent to [facility] (after further vesication [facility]). He had been given the Cyt[employer] coupon card. The paper does say giant [place] but the code is the same regardless [...] Follow-up with both vascular surgery and family medicine.[facility] Work Phone: Hospital Discharge instructions Additional Instructions 1. You may take either Tylenol or ibuprofen for your headache. 2. Follow-up with your doctor if you do not feel better by Sunday.[facility] Work Phone: Progress note No data available for this section [facility] Reason for referral (narrative)No reason for referral [facility] Work Phone: Summary Purpose Family History Relationship Condition Age at Onset Recorded Date/T jazzmine mother Malignant neoplasm Unknown Diabetes mellitus Unknown Hypertension Unknown grandmother Diabetes mellitus Unknown father Atrial fibrillation Unknown No Family History Records Found Advance Directives No Advanced Directives Records Found Advance Directive Response Recorded Date/ Time Do you have a Healthcare Power of Pocket Builder? Yes April 24, 2025 10:38am Name of Medical Power of Pocket Builder - INÉS April 24, 2025 10:38am Advance Directive Response Recorded Date/ Time Do you have a Healthcare Power of Pocket Builder? Yes April 25, 2025 11:22am Do you have a Healthcare Power of Pocket Builder? Yes April 24, 2025 10:38am Name of Medical Power of Pocket Builder - INÉS April 24, 2025 10:38am Chief Complaint and Reason for Visit Chief Complaint Admit Date LOWER LEFT LEG April 24, 2025 9:41 am Chief Complaint Admit Date LOWER LEFT LEG April 24, 2025 9:41 am CELLULITIS April 25, 2025 10:5 7am Chief Complaint Admit Date LOWER LEFT LEG April 24, 2025 9:41 am CELLULITIS April 25, 2025 10:5 7am ER FU, varicose veins May 22, 2025 8: 42am Chief Complaint Admit Date LOWER LEFT LEG April 24, 2025 9:41 am CELLULITIS April 25, 2025 10:5 7am ER FU, varicose veins May 22, 2025 8: 42am Venous insufficiency (chronic) (peripher al) June 08, 2025 10:42am Reason for Visit Admit Date Lower extremity edema May 22, 2025 8: 42am Recurrent phlebitis of superficial vein May 22, 2025 8:42am Venous insufficiency May 22, 2025 8:4 2am Additional Source Comments Patient Care team informatio n (unrecognized section and content) Team Status: Active Member Role Status Dates No Primary Care Physician Primary Care Provider Active Team Status: Inactive Member Role Status Dates No Primary Care Physician Primary Care Provider Active Start: April 24, 2025 End: April 24, 2025 Dr. Nkechi Islas DO Emergency Provider Active Start: April 24, 2025 End: April 24, 2025 Team Status: Inactive Member Role Status Dates No Primary Care Physician Primary Care Provider Active Start: April 25, 2025 End: April 25, 2025 Dr. Rizwan Garces MD Emergency Provider Active Sta rt: April 25, 2025 End: April 25, 2025 Team Status: Active Member Role/Relationship Status Dates No Primary Care Physician Primary Care Provider Active Team Status: Inactive Member Role/Relationship Status Dates No Primary Care Physician Primary Care Provider Active Start: April 24, 2025 End: April 24, 2025 Dr. Nkechi Islas DO Attending Provider Active Start: April 24, 2025 End: April 24, 2025 Dr. Nkechi Islas DO Emergency Provider Active Start: April 24, 2025 End: April 24, 2025 Team Status: Active Member Role/Relationship Status Dates No Primary Care Physician Primary Care Provider Active Start: April 24, 2025 Dr. Gregg Montemayor MD Attending Provider Active S tart: April 24, 2025 Dr. Nkechi Islas DO Referring Provider Active Start: April 24, 2025 Team Status: Inactive Member Role/Relationship Status Dates No Primary Care Physician Primary Care Provider Active Start: April 25, 2025 End: April 25, 2025 Dr. Rizwan Garces MD Attending Provider Active Sta rt: April 25, 2025 End: April 25, 2025 Dr. Rizwan Garces MD Emergency Provider Active Sta rt: April 25, 2025 End: April 25, 2025 Team Status: Inactive Member Role/Relationship Status Dates No Primary Care Physician Primary Care Provider Active Start: May 22, 2025 End: May 22, 2025 No Primary Care Physician Referring Provider Active Start: May 22, 2025 End: May 22, 2025 BUBBA Regan Attending Provider Active Star t: May 22, 2025 End: May 22, 2025 Team Status: Inactive Member Role/Relationship Status Dates No Primary Care Physician Primary Care Provider Active Start: June 08, 2025 End: June 08, 2025 BUBBA Regan Attending Provider Active Star t: June 08, 2025 End: June 08, 2025 BUBBA Regan Referring Provider Active Star t: June 08, 2025 End: June 08, 2025 Team Status: Active Member Role/Relationship Status Dates No Primary Care Physician Primary Care Provider Active Start: June 08, 2025 Dr. Gregg Montemayor MD Attending Provider Active S tart: June 08, 2025 (unrecognized sect ion and content) No Status Records FoundNo Status Records Found INFORMATION SOURCE (unrecogn ized section and content) DATE CREATED AUTHOR 09/25/[address] [facility] ([place]) DATE CREATED AUTHOR AUTHOR'S CON ORANTES 07/11/2025 [facility] Goals (unrecognized section and content) Goals [...] BE BASED ON THE PRIMARY CLINICAL RECORDS. [employer] provides no warranty or guarantee of the accuracy or completeness of information in this document.
--- NOTE | 2025-10-28 08:35 | PCM.HP.STD ---
HPI - General HPI Narrative LAYNE BUSH, is a 34 M who presents with venous insufficiency, prior recurrent SVT, relatively recent unprovoked right common femoral DVT. He has long standing bilateral lower extremity pain/heaviness worse at the end of the day and refractory to compression. Has chronic skin changes at left medial calf at site of prior injury. Cellulitis event a few months ago resolved. Has known Factor V; tested due to father having extensive thrombus history. PFSH Home Medications ?Medication ?Instructions ?Recorded ?Last Taken ?Type rivaroxaban 20 mg tablet (Xarelto) 20 mg PO QDAY #100 tabs 06/30/25 10/26/25 Rx Allergy/AdvReac Type Severity Reaction Status Date / Time No Known Allergies Allergy Verified 09/16/25 15:14 Family History Mother Cancer Diabetes Hypertension Grandmother Diabetes Father Atrial fibrillation Social History household members: spouse and children Smoking Status: Never smoker ROS Constitutional Constitutional: Denies chills, fever(s), frequent falls, lethargy or weakness Eyes Eyes: Denies blind spots, change in vision or loss of vision ENT HEENT: Denies bleeding gums, hoarseness or sore throat Cardiovascular Cardiovascular: Denies abdominal pain, bluish discoloration of hand/feet, chest pain with activity, claudication, cold extremities, cyanosis, dyspnea on exertion, erythema on extremities, irregular heart rhythm, leg edema, leg ulcers, numbness in extremities or weakness in extremities Respiratory/Chest Respiratory/Chest: Denies cough, excessive phlegm production, shortness of breath at rest, shortness of breath with exertion or wheezing Gastrointestinal Gastrointestinal: Denies anorexia, change in stool character, constipation, diarrhea, melena or rectal bleeding Genitourinary Genitourinary: Denies dysuria or hematuria Musculoskeletal Musculoskeletal: Denies abnormal gait Integumentary Integumentary: Reports other Details: ; Denies erythema, non-healing lesions or wounds Neurologic Neurologic: Denies abnormal speech, focal weakness, headache(s), loss of vision, numbness, paresthesias or sensory deficit Hematologic/Lymphatic Hematologic/Lymphatic: Denies easy bleeding, easy bruising or lymphadenopathy Patient's Goals Of Care . What would you like to achieve or improve as a result of your hospital stay?: wtf Vital Signs Vital Signs Vital Signs: Weight Weight: 305 lb Body Mass Index (BMI) 41.3 Physical Exam Const alert, oriented x3, no apparent distress and healthy appearing General Appearance: cooperative; Negative for combative or lethargic Orientation / Consciousness: awake Exam Limitations: no limitations HEENT Head and Scalp: normocephalic and atraumatic Eyes EOMs intact bilaterally General Eye: normal appearance of both eyes Neck full ROM General: trachea midline Resp normal respiratory effort and no use of accessory muscles Effort and Inspection: Negative for labored, stridor or audible wheezes Cardio regular rate and regular rhythm Back/Spine Cervical Spine: cervical ROM normal Extremity full ROM and normal capillary refill Skin no rashes or lesions noted and no wounds Neuro oriented x3, CN's II-XII intact bilaterally, no focal motor deficits and no sensory deficits noted Psych thought process normal, cooperative, affect normal, speech normal and activity/motor behavior normal Assessment & Plan Assessment/Plan (1) Varicose veins of leg with pain: QUALIFIERS: Laterality: left Qualified Code(s): I83.812 - Varicose veins of left lower extremity with pain PLAN: -chemical ablation -will treat GSV first; if sufficient glue will also treat thigh ASV
--- NOTE | 2025-10-28 12:10 | PCM.OPRPT ---
Operative Report (Standard) Operative Information Date of Procedure: 10/28/25 Pre-Operative Diagnosis: Varicose veins with pain of the left lower extremity, chronic dermatitis, chronic superficial phlebitis Post-Operative Diagnosis: Same Surgery/Procedure Performed: Chemical ablation left great saphenous vein infectious diseases physician: No Type of Anesthesia: Local and Sedation,Conscious Procedure Start Time: 09:05 Procedure Stop Time: 09:35 Select all DRAINS/GRAFTS/IMPLANTS that apply: None Estimated Blood Loss: 1 Specimen collected: No Description of surgery: HPI: Patient is a 34-year-old male with varicose veins of pain of the bilateral lower extremities worse on the left with prior superficial vein thrombotic events and chronic stasis dermatitis. He had reflux studies performed which revealed reflux throughout the great saphenous vein and multiple thigh and calf accessory saphenous veins. He is taken now for chemical ablation. Description of procedure: Upon obtaining informed consent and verification correct patient procedure site the patient was taken to the [facility] where he was positioned prepped and draped in usual sterile fashion. Time was performed and conscious sedation ministered Versed and fentanyl. Ultrasound was used to evaluate the great saphenous vein and the accessories throughout the leg. From the saphenofemoral junction the large caliber vessel was in fact the accessory saphenous on the anterior aspect of the thigh and the great saphenous at the this level was small in caliber. Both vessels joined in the mid thigh and from this point inferiorly the remainder of the vessel up to the mid calf was dilated. In the mid calf there were multiple accessory branches and varicosities and inferior to this the vessel was again small in caliber. Skin overlying the most inferior portion of the dilated vessel was anesthetized with 1% lidocaine the vessel accessed under ultrasound guidance with a micropuncture needle wire. This was then exchanged for a short 7 Latvian sheath which was advanced without resistance. Through the sheath the [email or web address]son wire was advanced under fluoroscopic guidance to the saphenofemoral junction. The glue delivery guide was then advanced over the wire and positioned 5 cm inferior to the saphenofemoral junction. The glue delivery catheter was then advanced and mated to the guide and positioned 5 cm inferior to the saphenofemoral junction. Glue was then deposited per weight clerk's instructions from this point to the sheath with treatment zone from just below the saphenofemoral junction to the mid calf. The guide and catheter were then withdrawn followed by removal of the sheath and manual pressure to hemostasis was observed. The saphenofemoral junction was interrogated and found to be patent with no evidence of glue or thrombus within the saphenofemoral junction or deep system. Dry sterile dressing and Harrison wrap were then applied and patient was taken to recovery area plan discharge to home. Surgical Findings: See above Complications Complications: No
== END 2025-10-28 10:40 | disposition home or self-care (01) ==
PROVIDERS: Referring Provider Surgery Trauma Surgery; Visit Provider Surgery Trauma Surgery
DX: I83.813 Varicose veins of bilateral lower extremities with pain (principal); Z79.01 Long term (current) use of anticoagulants; Z86.718 Personal history of other venous thrombosis and embolism; L30.9 Dermatitis, unspecified; I80.02 Phlebitis and thrombophlebitis of superficial vessels of left lower extremity; I83.12 Varicose veins of left lower extremity with inflammation
CPT/HCPCS: 36482; 99152; 99153; C1894

== ENCOUNTER → 2025-11-02 | Outpatient (CLI) | payer SELFPAY, OTHER ==
--- NOTE | 2025-11-02 09:13 | VDLE_ITS ---
Reason For Study Reason For Study: S/P LLE Chemical Ablation RIGHT LEFT CFV is compressible, spontaneous, phasic, competent GSV is normal. and demonstrates normal augmentation. CFV is compressible, spontaneous, phasic, competent, Procedure and demonstrates normal augmentation. This is a venous duplex using B-mode, color flow and FV is compressible, spontaneous, phasic, competent spectral Doppler. and demonstrates normal augmentation. Exam performed in department. POP V is compressible, spontaneous, phasic, competent The exam was diagnostic. and demonstrates normal augmentation. T/P Trunk is compressible. PTV is compressible. LT PerV is compressible. Lt ASV is DILATED and NONCOMPRESSIBLE from SFJ to distal calf with bright intraluminal echoes throughout. Finding is consistent with recent chemical ablation procedure. VL/Venous Duplex US, Unilateral Interpretation Summary Left accessory saphenous vein occluded consistent with recent ablation. Deep veins of the left lower extremity are patent and compressible segmentally. There is no evidence of left lower extremity deep vein thrombosis. Ordering Physician: Brittany Bailey Referring Physician: N/A Performed By: Fortunato Patel RVT
--- NOTE | 2025-11-02 09:28 | VDLE_ITS ---
Reason For Study Reason For Study: RLE Swelling / HX SVT RIGHT LEFT CFV is compressible, spontaneous, phasic, competent CFV is compressible, spontaneous, phasic, competent, and demonstrates normal augmentation. and demonstrates normal augmentation. FV is compressible, spontaneous, phasic, competent and demonstrates normal augmentation. POP V is compressible, spontaneous, phasic, competent and demonstrates normal augmentation. T/P Trunk is compressible. PTV is compressible. RT PerV is compressible. SFJ is INCOMPETENT and measures 0.70 cm. GSV proximal thigh measures 0.28 x 0.32 cm. GSV at knee measures 0.28 x 0.34 cm. GSV INCOMPETENT throughout for greater than 0.5 seconds. ASV medial thigh knee to SFJ is dilated and NONCOMPRESSIBLE in portions and also PARTIALLY COMPRESSIBLE with bright intraluminal echoes. Finding is consistent with Acute on Chronic SVT ASV medial thigh knee to SFJ is dilated and NONCOMPRESSIBLE in portions and also PARTIALLY COMPRESSIBLE with bright intraluminal echoes. Finding is consistent with Acute on Chronic SVT. ASV 2 anterior proximal thigh is INCOMPETENT for greater than 0.5 seconds and measures 0.75 cm. in long axis arising from the SFJ. ASV 2 anterior mid thigh is INCOMPETENT for greater than 0.5 seconds and measures 0.44 x 0.41 cm. PARTIALLY COMPRESSIBLE varicosities noted at distal thigh / kneecap. Perforating Vessel distal calf is INCOMPETENT for greater than 0.5 seconds and measures 0.20 x 0.21 cm. SSV is nonvisualized. Procedure This is a venous duplex using B-mode, color flow and spectral Doppler. Exam performed in department. The exam was diagnostic. Patient was scanned in reverse Trendelenburg position during reflux assessment. VL/Venous Duplex US, Unilateral Interpretation Summary Acute on chronic superficial vein thrombosis noted in the right thigh accessory saphenous veins and associated varicosities. Positive for reflux in the right saphenofemoral junction, accessory saphenous v eins in thigh, and calf neonatal specialist. Deep veins of the right lower extremity are patent and compressible segmentally . There is no evidence of right lower extremity deep vein thrombosis. Ordering Physician: Gregg Montemayor Referring Physician: N/A Performed By: Fortunato Patel RVT
== END | disposition home or self-care (01) ==
PROVIDERS: Referring Provider Surgery Trauma Surgery; Visit Provider Physician Assistant
DX: I83.813 Varicose veins of bilateral lower extremities with pain (principal); I87.2 Venous insufficiency (chronic) (peripheral)
CPT/HCPCS: 93971